=== PATIENT | female | born 1945 | race Caucasian/White ===

== ENCOUNTER → 2016-05-22 | Outpatient (CLI) | payer OTHER ==
[~2016-05-22] MED LIST: CHOL100010 PO; CHOL100027 PO; DIPH25CA65 PO; FEBU80TA PO; GABA1CAP PO; HYDR25TA4 PO; IBUP-1050 PO; LISI-461 PO; MULTTAB58 PO; OXYC1TAB3 PO; TRAM-10 PO; ULT/50 PO; WARF5TAB7 PO; ZNT/150 PO
[2016-05-22 12:49] LABS: HEMATOCRIT 38.4 % (37-47); MEAN CELL VOLUME 93.4 fL (80-100); MEAN CORPUSCULAR HEMOGLOBIN 30.9 pg (25-34); MEAN CORPUSCULAR HGB CONC 33.1 g/dl (32-36); MEAN PLATELET VOLUME 9.9 fL (7.4-10.4); PLATELET COUNT 248 K/uL (130-400); RED BLOOD COUNT 4.11 M/uL (4.2-5.4)
[2016-05-22 13:00] LABS: ALT/SGPT 32 U/L (12-78); AST/SGOT 34 U/L (15-37); BLOOD UREA NITROGEN 30 mg/dl (7-18); BUN/CREATININE RATIO 20.3 (10-20); CALCIUM 9.4 mg/dl (8.5-10.1); CARBON DIOXIDE 32 mmol/L (21-32); CHLORIDE 103 mmol/L (98-107); CHOLESTEROL 173 mg/dl (0-200); GLUCOSE 76 mg/dl (70-99); POTASSIUM 4.8 mmol/L (3.5-5.1); SODIUM 138 mmol/L (136-145)
[2016-05-22 13:03] LABS: ALB/GLOB RATIO 0.9 (0.9-2); ALKALINE PHOSPHATASE 88 U/L (45-117); HDL CHOLESTEROL 43 mg/dl; LDL CHOLESTEROL CALCULATED 85 mg/dl; TRIGLYCERIDES 223 mg/dl (0-150); VERY LOW DENSITY LIPOPROT CALC 45 mg/dl
[2016-05-22 13:14] LABS: ESTIMATED AVERAGE GLUCOSE 123 mg/dl; HA1C FLAG Normal (Normal)
== END | disposition home or self-care (01) ==
LOC: C.LABBFT 10:37
PROVIDERS: ATTEND Internal Medicine
DX: I12.9 Hypertensive chronic kidney disease with stage 1 through stage 4 chronic kidney disease, or unspecified chronic kidney disease (principal); N18.3 Chronic kidney disease, stage 3 (moderate); R73.01 Impaired fasting glucose

== ENCOUNTER 2016-09-16 16:06 | Emergency (ER) | payer OTHER ==
[~2016-09-16] VITALS: Ht 154.9 cm; Wt 96.4 kg
[~2016-09-16 16:06] MED LIST changes: -CHOL100027 PO; -IBUP-1050 PO; -MULTTAB58 PO; -OXYC1TAB3 PO; -TRAM-10 PO
[2016-09-16 16:17] VITALS: Ht 154.9 cm; Wt 96.4 kg
[2016-09-16] MEDS ORDERED: ONDANSETRON INJ 2 MG/ML 2 ML VIAL IV STA (16:27)
[2016-09-16] MEDS ORDERED: HYDROmorphone INJ 0.5 MG/0.5 ML SYR IV PRN (16:30)
[2016-09-16] MEDS ORDERED: OPTIRAY 320 IV PRN (16:45)
[2016-09-16] MEDS ORDERED: TRAM-10 PO (17:00)
[2016-09-16] MEDS ORDERED: CHOL100027 PO (17:00)
[2016-09-16 17:01] VITALS: O2SAT 96
[2016-09-16 17:08] LABS: ISTAT CREATININE 1.5 mg/dl (0.6-1.3); ISTAT HEMOGLOBIN 13.9 g/dl (12.0-16.0); ISTAT IONIZED CALCIUM 1.09 mmol/l (1.12-1.32)
[2016-09-16 17:09] LABS: BASO % 0.3 %; BASO ABS # 0.02 K/uL (0-0.2); COMPLETE YES; EOS % 1.3 %; HEMATOCRIT 40.6 % (37-47); IG% 0.1 %; LYMPH % 24.2 %; LYMPH ABS # 1.66 K/uL (1.2-3.4); MEAN CELL VOLUME 96.2 fL (80-100); MEAN CORPUSCULAR HGB CONC 33.3 g/dl (32-36); MEAN PLATELET VOLUME 9.9 fL (7.4-10.4); MONO % 6.7 %; NEUT % 67.4 %; PLATELET COUNT 231 K/uL (130-400); RED BLOOD COUNT 4.22 M/uL (4.2-5.4); WHITE BLOOD COUNT 6.86 K/uL (4.8-10.8)
[2016-09-16 17:17] LABS: INR 1.9 (0.9-1.1); PARTIAL THROMBOPLASTIN RATIO 1.3; PROTHROMBIN TIME (PATIENT) 20.4 SECONDS (9.0-12.0)
[2016-09-16 17:30] LABS: ALKALINE PHOSPHATASE 90 U/L (45-117); ALT/SGPT 26 U/L (12-78); AST/SGOT 25 U/L (15-37); CKMB/CK RATIO 1.6 (0-3.0)
--- NOTE | 2016-09-16 17:41 | DIAGNOSTIC IMAGING REPORT ---
ADDENDUM Healing right posterior fourth rib fracture. Electronically signed by: Lito Vieira M.D. 09/16/2016 5:46 PM Dictated Date/Time: 09/16/2016 5:46 PM ORIGINAL REPORT CHEST CTA for PULMONARY ARTERIES CT DOSE: 567.34 mGy.cm HISTORY: Short of breath. Sharp chest pain. TECHNIQUE: Multiaxial CT images of the chest were performed following the intravenous administration of contrast to evaluate the pulmonary arteries. Maximal intensity projection images were also obtained. A dose lowering technique was utilized adhering to the principles of ALARA. COMPARISON STUDY: Chest 01/07/2013. Abdomen and pelvis CT 01/07/2013. FINDINGS: Cholecystectomy. The visualized liver, spleen, and adrenal glands are unremarkable. Small hiatus hernia. No pleural or pericardial effusions. No mediastinal or hilar lymphadenopathy. The heart is normal in size. No acute fractures within the visualized osseous structures. No pneumothorax. A 4 mm nodule within the lingula on image 115. A stable 7 mm nodule within the left lower lobe on image 68. Therefore, this is likely benign. Patchy bibasilar densities are nonspecific but favor mild dependent change. Normal caliber thoracic aorta with no evidence for dissection. No filling defects within the pulmonary arteries to suggest pulmonary embolus. IMPRESSION: No evidence for pulmonary embolus. Additional findings as described above. Electronically signed by: Lito Vieira M.D. 09/16/2016 5:40 PM Dictated Date/Time: 09/16/2016 5:31 PM
--- NOTE | 2016-09-16 17:47 | DIAGNOSTIC IMAGING REPORT ---
CHEST ONE VIEW PORTABLE HISTORY: Atypical CHEST PAIN COMPARISON: Chest 07/03/2013. FINDINGS: Linear densities the left lung base favor subsegmental atelectasis. The lungs are otherwise clear. No pleural effusions. No pneumothorax. The heart is normal in size. Healing right posterior fourth rib fracture. IMPRESSION: Left basilar subsegmental atelectasis. Healing right posterior fourth rib fracture. Otherwise, no acute process within the chest. Electronically signed by: Lito Vieira M.D. 09/16/2016 5:45 PM Dictated Date/Time: 09/16/2016 5:43 PM
[2016-09-16] MEDS ORDERED: OXYC1TAB3 PO (18:07)
[2016-09-16] MEDS ORDERED: MULTTAB58 PO (18:09)
[2016-09-16] MEDS ORDERED: OXYCODONE IR HOME PACK PO ONE (18:15)
[2016-09-16 18:22] VITALS: BP 121/59; PULSE 76; TEMP 36.6; O2SAT 96
--- NOTE | 2016-09-17 00:02 | EMERGENCY ROOM VISIT NOTE ---
History Report prepared by Giancarlo: Mak Earl Under the Supervision of: Dr. Idris Bronson M.D. First contact with patient: 16:24 Chief Complaint: STROKE SYMPTOMS Stated Complaint: HAS FACTOR 5,RT LEG PAIN,POSSIBLE BLOOD CLOT History of Present Illness The patient is a 70 year old female with a history of a DVT in her leg who presents to the Emergency Room with complaints of persistent right frontal pleuritic pain that started 2 days ago. She says that she is concerned that she is having a blood clot. The patient says that her symptoms started as feeling short of breath, with sharp and burning pains when taking a deep breath on her right side. She states that her pain has specifically been around her right shoulder, right side of her chest, and the upper right side of her back. The patient rates her pain as a 10 out of 10 in severity. She notes that she takes Warfarin, and last had her numbers checked a month ago, which were fine. She adds that she has not missed any doses of her Coumadin. The patient adds that she has factor 5. She takes Tramadol for neuropathy, and has a history of a cholecystectomy. She denies any left-sided pain or any new low back pain. She says that she has not had any recent long car or plane trips. The patient says she was sitting a long time in adventism this morning, which is causing her leg swelling. She notes that she has not had any recent injuries or trauma. Pt also denies LOC, headache, fevers, chills, diaphoresis, visual changes, neck pain, nausea, vomiting, abdominal pain, melena, hematochezia, urinary symptoms, numbness, weakness, lymphadenopathy, rash, or other complaints. Source of History: patient Onset: 2 days ago Position: other (right frontal pleuritic ) Quality: burning, sharp Timing: other (persistent) Modifying Factors (Worsening): breathing Associated Symptoms: + chest pain (right side, denies left side), + SOB, + back pain (right upper) Note: Associated symptoms: Right shoulder pain. Review of Systems See HPI for pertinent positives and negatives. A total of ten systems were reviewed and were otherwise negative. Past Medical & Surgical Medical Problems: (1) DVT (deep venous thrombosis) (2) Epiploic appendagitis (3) Factor V Leiden (4) Gout (5) Neuropathy Surgical Problems: (1) Hx of cholecystectomy Family History Cancer Diabetes mellitus Heart disease Hypertension Social History Smoking Status: Never Smoker Alcohol Use: none Drug Use: none Marital Status: Occupation Status: employed Current/Historical Medications Scheduled Cholecalciferol (Vitamin D 1000 Unit), 1,000 INTER.UNIT PO DAILY Febuxostat (Uloric), 1 TAB PO DAILY Gabapentin (Neurontin), 300 MG PO TID Hydrochlorothiazide (Hctz), 1 TAB PO DAILY Lisinopril (Zestril), 10 MG PO DAILY Multiple Vitamin (Multivitamin), 1 TAB PO DAILY Warfarin Sod (Jantoven), 5 MG PO QPM Scheduled PRN Oxycodone Ir (Roxicodone Ir), 1-2 TAB PO Q4H PRN for Severe Pain Tramadol (Ultram), 50 MG PO QID PRN for Pain Allergies Coded Allergies: Celecoxib (Verified Allergy, Unknown, PT UNSURE, 12/28/14) Physical Exam Vital Signs Date Time Temp Pulse Resp B/P (MAP) Pulse Ox O2 Delivery O2 Flow Rate FiO2 09/16/16 18:22 36.6 76 20 121/59 96 09/16/16 18:11 79 23 95 09/16/16 18:00 154/73 09/16/16 17:41 78 20 96 09/16/16 17:36 76 20 96 09/16/16 17:31 121/59 09/16/16 17:06 73 32 96 09/16/16 17:01 96 Room Air 09/16/16 17:01 76 20 147/76 99 Room Air 09/16/16 17:01 96 Room Air 09/16/16 16:56 78 24 96 09/16/16 16:51 72 19 98 09/16/16 16:47 78 09/16/16 16:46 82 23 98 09/16/16 16:43 162/83 09/16/16 16:37 96 Room Air 09/16/16 16:17 36.6 85 20 145/82 93 Room Air Physical Exam GENERAL: Awake, alert, uncomfortable-appearing, in no distress HENT: Normocephalic, atraumatic. Oropharynx unremarkable. EYES: Normal conjunctiva. Sclera non-icteric. NECK: Supple. No nuchal rigidity. FROM. No JVD. RESPIRATORY: Clear to auscultation. CARDIAC: Regular rate, normal rhythm. Extremities warm and well perfused. Pulses equal. ABDOMEN: Soft, non-distended. No tenderness to palpation. No rebound or guarding. No masses. RECTAL: Deferred. MUSCULOSKELETAL: Right chest and right upper back tenderness. The back is symmetrical on inspection without obvious abnormality. There is no CVA tenderness to palpation. No joint edema. LOWER EXTREMITIES: Chronic venous discoloration of lower legs. 2+ lower extremity edema. Calves are equal size bilaterally and non-tender. NEURO: Normal sensorium. No sensory or motor deficits noted. SKIN: No rash or jaundice noted. Medical Decision & Procedures ER Provider Diagnostic Interpretation: Radiology results as stated below per my review and radiologist interpretation: CHEST CTA for PULMONARY ARTERIES CT DOSE: 567.34 mGy.cm HISTORY: Short of breath. Sharp chest pain. TECHNIQUE: Multiaxial CT images of the chest were performed following the intravenous administration of contrast to evaluate the pulmonary arteries. Maximal intensity projection images were also obtained. A dose lowering technique was utilized adhering to the principles of ALARA. COMPARISON STUDY: Chest 01/07/2013. Abdomen and pelvis CT 01/07/2013. FINDINGS: Cholecystectomy. The visualized liver, spleen, and adrenal glands are unremarkable. Small hiatus hernia. No pleural or pericardial effusions. No mediastinal or hilar lymphadenopathy. The heart is normal in size. No acute fractures within the visualized osseous structures. No pneumothorax. A 4 mm nodule within the lingula on image 115. A stable 7 mm nodule within the left lower lobe on image 68. Therefore, this is likely benign. Patchy bibasilar densities are nonspecific but favor mild dependent change. Normal caliber thoracic aorta with no evidence for dissection. No filling defects within the pulmonary arteries to suggest pulmonary embolus. IMPRESSION: No evidence for pulmonary embolus. Additional findings as described above. Electronically signed by: Lito Vieira M.D. 09/16/2016 5:40 PM Dictated Date/Time: 09/16/2016 5:31 PM ADDENDUM Healing right posterior fourth rib fracture. Electronically signed by: Lito Vieira M.D. 09/16/2016 5:46 PM Dictated Date/Time: 09/16/2016 5:46 PM ORIGINAL REPORT CHEST CTA for PULMONARY ARTERIES CT DOSE: 567.34 mGy.cm HISTORY: Short of breath. Sharp chest pain. TECHNIQUE: Multiaxial CT images of the chest were performed following the intravenous administration of contrast to evaluate the pulmonary arteries. Maximal intensity projection images were also obtained. A dose lowering technique was utilized adhering to the principles of ALARA. COMPARISON STUDY: Chest 01/07/2013. Abdomen and pelvis CT 01/07/2013. FINDINGS: Cholecystectomy. The visualized liver, spleen, and adrenal glands are unremarkable. Small hiatus hernia. No pleural or pericardial effusions. No mediastinal or hilar lymphadenopathy. The heart is normal in size. No acute fractures within the visualized osseous structures. No pneumothorax. A 4 mm nodule within the lingula on image 115. A stable 7 mm nodule within the left lower lobe on image 68. Therefore, this is likely benign. Patchy bibasilar densities are nonspecific but favor mild dependent change. Normal caliber thoracic aorta with no evidence for dissection. No filling defects within the pulmonary arteries to suggest pulmonary embolus. IMPRESSION: No evidence for pulmonary embolus. Additional findings as described above. Electronically signed by: Lito Vieira M.D. 09/16/2016 5:40 PM Dictated Date/Time: 09/16/2016 5:31 PM CHEST ONE VIEW PORTABLE HISTORY: Atypical CHEST PAIN COMPARISON: Chest 07/03/2013. FINDINGS: Linear densities the left lung base favor subsegmental atelectasis. The lungs are otherwise clear. No pleural effusions. No pneumothorax. The heart is normal in size. Healing right posterior fourth rib fracture. IMPRESSION: Left basilar subsegmental atelectasis. Healing right posterior fourth rib fracture. Otherwise, no acute process within the chest. Electronically signed by: Lito Vieira M.D. 09/16/2016 5:45 PM Dictated Date/Time: 09/16/2016 5:43 PM Laboratory Results 09/16/16 17:00 Red Blood Count 4.22, Mean Corpuscular Volume 96.2, Mean Corpuscular Hemoglobin 32.0, Mean Corpuscular Hemoglobin Concent 33.3, Mean Platelet Volume 9.9, Neutrophils (%) (Auto) 67.4, Lymphocytes (%) (Auto) 24.2, Monocytes (%) (Auto) 6.7, Eosinophils (%) (Auto) 1.3, Basophils (%) (Auto) 0.3, Neutrophils # (Auto) 4.62, Lymphocytes # (Auto) 1.66, Monocytes # (Auto) 0.46, Eosinophils # (Auto) 0.09, Basophils # (Auto) 0.02 Test 09/16/16 16:54 09/16/16 17:00 Bedside Hemoglobin 13.9 g/dl (12.0-16.0) Bedside Hematocrit 41 % (37-47) Bedside Sodium 138 mEq/L (135-144) Bedside Potassium 4.6 mEq/L (3.3-5.0) Bedside Chloride 102 mEq/L (101-112) Bedside Total CO2 26 mEq/l (24-31) Anion Gap 15.0 mmol/L (16-25) Bedside Blood Urea Nitrogen 32 mg/dl (7-18) Bedside Creatinine 1.5 mg/dl (0.6-1.3) Bedside Glucose (other) 114 mg/dl (70-99) Bedside Ionized Calcium (Jamie) 1.09 mmol/l (1.12-1.32) White Blood Count 6.86 K/uL (4.8-10.8) Red Blood Count 4.22 M/uL (4.2-5.4) Hemoglobin 13.5 g/dL (12.0-16.0) Hematocrit 40.6 % (37-47) Mean Corpuscular Volume 96.2 fL (80-100) Mean Corpuscular Hemoglobin 32.0 pg (25-34) Mean Corpuscular Hemoglobin Concent 33.3 g/dl (32-36) Platelet Count 231 K/uL (130-400) Mean Platelet Volume 9.9 fL (7.4-10.4) Neutrophils (%) (Auto) 67.4 % Lymphocytes (%) (Auto) 24.2 % Monocytes (%) (Auto) 6.7 % Eosinophils (%) (Auto) 1.3 % Basophils (%) (Auto) 0.3 % Neutrophils # (Auto) 4.62 K/uL (1.4-6.5) Lymphocytes # (Auto) 1.66 K/uL (1.2-3.4) Monocytes # (Auto) 0.46 K/uL (0.11-0.59) Eosinophils # (Auto) 0.09 K/uL (0-0.5) Basophils # (Auto) 0.02 K/uL (0-0.2) RDW Standard Deviation 46.3 fL (36.4-46.3) RDW Coefficient of Variation 13.2 % (11.5-14.5) Immature Granulocyte % (Auto) 0.1 % Immature Granulocyte # (Auto) 0.01 K/uL (0.00-0.02) Prothrombin Time 20.4 SECONDS (9.0-12.0) Prothromb Time International Ratio 1.9 (0.9-1.1) Activated Partial Thromboplast Time 34.8 SECONDS (21.0-31.0) Partial Thromboplastin Ratio 1.3 Total Bilirubin 0.3 mg/dl (0.2-1) Direct Bilirubin 0.1 mg/dl (0-0.2) Aspartate Amino Transf (AST/SGOT) 25 U/L (15-37) Alanine Aminotransferase (ALT/SGPT) 26 U/L (12-78) Alkaline Phosphatase 90 U/L (45-117) Total Creatine Kinase 202 U/L (26-192) Creatine Kinase MB 3.3 ng/ml (0.5-3.6) Creatine Kinase MB Ratio 1.6 (0-3.0) Troponin I < 0.015 ng/ml (0-0.045) Total Protein 8.2 gm/dl (6.4-8.2) Albumin 3.8 gm/dl (3.4-5.0) Lipase 226 U/L (73-393) Laboratory results reviewed by me Medications Administered Medications (Trade) Dose Ordered Sig/Dante Route Start Time Stop Time Status Last Admin Dose Admin Ondansetron HCl (Zofran Inj) 4 mg NOW STAT IV 09/16/16 16:27 09/16/16 16:30 DC 09/16/16 17:14 4 MG Hydromorphone HCl (Dilaudid Inj) 0.5 mg Q15M PRN IV 09/16/16 16:30 09/16/16 18:44 DC 09/16/16 17:14 0.5 MG Oxycodone HCl (Roxicodone Immediate Rel 5MG Home Pack) 1 homepack UD ONCE PO 09/16/16 18:15 09/16/16 18:16 DC 09/16/16 18:33 1 HOMEPACK ECG Indication: SOB/dyspnea Rate (beats per minute): 75 Rhythm: normal sinus Findings: no acute ischemic change, no ectopy ED Course 162: The patient was evaluated in room B11B. A complete history and physical exam was performed. 162: Ordered Zofran Inj 4 mg IV. 163: Ordered Dilaudid Inj 0.5 mg IV PRN. 1814: Ordered Roxicodone Immediate Rel 5MG Home Pack 1 homepack PO. 174: I reevaluated the patient and she is resting. 175: I reevaluated the patient and she says that her 14 year old 6 foot 1 grandson bear-hugged her 2 days ago before the pain started. The patient verbally expressed understanding and agreement of the treatment plan. The patient will be discharged. Medical Decision Triage Nursing notes reviewed. The patient's presentation and history were concerning for SOB, chest and back pain. Etiologies such as pulmonary embolism, cardiac ischemia, aortic dissection, pneumonia, pneumothorax, musculoskeletal, infections, gastrointestinal, zoster as well as others were entertained. The patient was given dilaudid and zofran for symptom control. Lab work, imaging and ECG ordered. The patient had an unremarkable ECG. CBC was unremarkable. Her INR is minimally subtherapeutic at 1.9. Cardiac markers negative. Her chemistry panel is unremarkable. Chest x-ray and CT scan as above. The patient has a right posterior fourth rib fracture. She was doing much better with the Dilaudid. On further review the patient remembered that she had received a very strong bear hug From her grandson who is 6'1" and noted discomfort at the time of the squeeze. I believe that this is the cause of her pain and she has a near therapeutic INR and this fracture is right at the spot of her discomfort. She was given oxycodone for use at home. Incentive spirometry was also instructed. The patient will follow-up closely this week as an outpatient. If she worsens in any way she will be back here for reevaluation. By the evaluation outlined above other emergent etiologies such as those listed in the differential, as well as others, were deemed relatively unlikely. The patient was educated about the findings as listed above. All questions were answered and the patient was pleased with the treatment. Return instructions were outlined and the patient was discharged in stable condition. The patient was referred to her PCP for follow-up for a recheck of the current condition. [place] Drug Monitoring Program Search Results: patient reviewed within database, no issues identified Medication Reconcilliation Current Medication List: was personally reviewed by me Blood Pressure Screening Patient's blood pressure: Elevated blood pressure Blood pressure disposition: Elevated BP felt to be situational Impression Primary Impression: Right rib fracture Scribe Attestation The scribe's documentation has been prepared under my direction and personally reviewed by me in its entirety. I confirm that the note above accurately reflects all work, treatment, procedures, and medical decision making performed by me. Departure Information Dispostion Home / Self-Care Prescriptions Oxycodone Ir (Roxicodone Ir) 5 Mg Tab 1-2 TAB PO Q4H Y for Severe Pain, #24 TAB Prov: Idris Bronson MD 09/16/16 Referrals Eliel Sykes M.D. (PCP) Patient Instructions ED Fx Rib, My [facility] Additional Instructions Rib fracture instructions: DO NOT drive, drink alcohol, operate machinery, or perform dangerous activities today. You were given medications in the ER that can affect your ability to safely function or operate a vehicle. Oxycodone (OxyIR) 5mg: Take 1-2 pills every four hours for breakthrough pain. Avoid alcohol, operating machinery or dangerous equipment, working on ladders or roofs, DRIVING, or situations where being under the influence may be dangerous. It is recommended to use an [id number] stool softener such as Colace, 100mg twice daily while taking this medication to avoid constipation. Continue warfarin. Acetaminophen(Tylenol) may be used for fever or pain. Use 1000mg every six hours as needed. Avoid using more than 4000mg in a 24 hour period. Rest and drink plenty of fluids as tolerated. Continue current medications. Avoid strenuous activities and anything that worsens your pain. Resume normal activities once your symptoms resolve. Use the incentive spirometer to exercise your lungs every 2-3 hours as directed this week to minimize the chance for pneumonia. Return to the ER immediately for worsening or persistent chest pain, abdominal pain, vomiting, fevers, chest pains, difficulty breathing, worsening of your condition, or as needed. Follow up with your primary physician in 2-3 days for a recheck of your current condition.
[2016-09-24] MEDS ORDERED: IBUP-1050 PO (09:04)
[2016-11-08] MEDS ORDERED: WARF5TAB7 PO (08:39)
== END 2016-09-16 18:24 | disposition home or self-care (01) ==
LOC: C.EDB 16:06
DX: J98.11 Atelectasis (principal); R07.9 Chest pain, unspecified; D68.51 Activated protein C resistance; M79.604 Pain in right leg; Z86.718 Personal history of other venous thrombosis and embolism; Z79.01 Long term (current) use of anticoagulants; Z79.899 Other long term (current) drug therapy; M84.48XD Pathological fracture, other site, subsequent encounter for fracture with routine healing

== ENCOUNTER → 2016-12-24 | Outpatient (CLI) | payer OTHER ==
[~2016-12-24] MED LIST changes: -CHOL100010 PO; +CHOL100027 PO; -DIPH25CA65 PO; +MULTTAB58 PO; +TRAM-10 PO; -ULT/50 PO; -ZNT/150 PO
== END | disposition home or self-care (01) ==
LOC: C.MAMM 14:29
PROVIDERS: ATTEND Internal Medicine
DX: M85.851 Other specified disorders of bone density and structure, right thigh (principal); M85.852 Other specified disorders of bone density and structure, left thigh; Z87.828 Personal history of other (healed) physical injury and trauma

== ENCOUNTER 2017-04-23 10:58 | Emergency (ER) | payer OTHER ==
[~2017-04-23] VITALS: Ht 157.5 cm; Wt 96.0 kg
[~2017-04-23 10:58] MED LIST changes: +GABA100C13 PO; -GABA1CAP PO
[2017-04-23 11:03] VITALS: TEMP 36.6; Ht 157.5 cm; Wt 96.0 kg
--- NOTE | 2017-04-23 11:29 | EMERGENCY ROOM VISIT NOTE ---
ED Visit Note First contact with patient: 11:09 CHIEF COMPLAINT: Low back pain HISTORY OF PRESENT ILLNESS: This is a 71-year-old female patient presents to the emergency department by private vehicle with her complaining of pain in the low back which began 2 days ago after an injury. The patient states that she fell backwards up against a windowsill striking her low back on the windowsill and has been having right lower back pain since that time. She describes the pain as burning and shooting, worse with bending over and twisting motions, better with ice and ibuprofen, 9/10. She has history of peripheral neuropathy of the bilateral lower extremities, but denies any new or worsening numbness, tingling, weakness of the lower extremities, denies any bowel or bladder dysfunction, denies any saddle paresthesias. She denies any other associated injuries. The pain has been gradually worsening. She denies any nausea or vomiting or abdominal pain. No chest pain or shortness of breath. The patient has not had prior back injuries. No dysuria or increased urinary frequency. She does take Coumadin for history of DVT, rhythm reports her last INR was 2.1. REVIEW OF SYSTEMS: A complete 10 point review of systems was reviewed with the patient with pertinent positives and negatives as per history of present illness. All else were negative. ALLERGIES: Reviewed in chart MEDICATIONS: Reviewed in chart PMH: Reviewed in chart SOCIAL HISTORY: Lives at home with her . Denies tobacco use, alcohol or recreational drug use PHYSICAL EXAM: VITALS: Vitals are noted on the nurse's note and reviewed by myself. Vital signs stable. GENERAL: Pleasant and cooperative, in no acute distress, non-diaphoretic, well- developed well-nourished. SKIN: The skin was without rashes, erythema, edema, or bruising. Capillary refill less than 2 seconds. NECK: Supple without nuchal rigidity. No cervical spine tenderness. No paraspinous muscle tenderness. HEART: Regular rate and rhythm without murmurs gallops or rubs. LUNGS: Clear to auscultation bilaterally without wheezes, rales or rhonchi. ABDOMEN: Positive bowel sounds x 4. Normal tympanic percussion. Soft, nontender, without masses or organomegaly. Crook sign negative. MUSCULOSKELETAL: No muscle atrophy, erythema, or edema noted of the back. There is moderate tenderness over the lumbar spinous processes, most prominent at L1-L2. There is moderate tenderness over the paraspinous muscles on the right. There is no tenderness over the thoracic spine no paraspinous muscles. There are no obvious muscle spasms present. The patient is slow to move around with maximum tenderness with bending at the waist and twisting to the right. Negative straight leg raise test bilaterally. NEURO: Patient was alert and oriented to person place and time. Normal sensation to light and sharp touch. Deep tendon reflexes 2+ in the lower extremities. Dorsalis pedis pulse 2+ bilaterally. Strength 5/5 and equal in the bilateral lower extremities. IMAGING: LUMBAR SPINE WITHOUT CT DOSE: HISTORY: Trauma. Pain. back injury, eval trauma--recon images pls TECHNIQUE: Multiaxial CT images of the lumbar spine were performed and reformatted in the sagittal and coronal plane without the use of contrast. A dose lowering technique was utilized adhering to the principles of ALARA. COMPARISON: None. FINDINGS: Nondisplaced cortical fracture right transverse process L1. Considerable degenerative change of the posterior elements and intervertebral this throughout the entire lumbar region. Moderate multifactorial narrowing of the spinal canal at L2-L3 and L3-L4. No evidence for compression deformity. Probable multifactorial spinal stenosis L4-L5 IMPRESSION: 1. Nondisplaced cortical fracture right transverse process L1. 2. Considerable degenerative change throughout the entire lumbar region. 3. Findings of multifactorial narrowing of the spinal canal from L2 through L5 4. No evidence for compression deformity. ----- CT SCAN OF THE ABDOMEN AND PELVIS WITHOUT IV CONTRAST CLINICAL HISTORY: Fall. Low back pain. COMPARISON STUDY: Abdominal CT dated 01/07/2013. TECHNIQUE: CT scan of the abdomen and pelvis is performed from the lung bases to the proximal femora. Images are reviewed in the axial, sagittal, and coronal planes. IV contrast was not administered for this examination as per the referring clinician. Note that the examination was performed in suboptimal fashion without oral and IV contrast. A dose lowering technique was utilized adhering to the principles of ALARA. CT DOSE: 1309.81 mGy.cm FINDINGS: Lung bases: The heart is normal in size and without pericardial effusion. A 7 mm pulmonary nodule is again seen at the left lung base. This is unchanged from 2012 and of doubtful significance. The lung bases are otherwise clear noting dependent atelectasis. There is a small hiatal hernia. Liver: The unenhanced liver is normal in size, contour, and attenuation. There is no intrahepatic biliary ductal dilatation. Gallbladder: Surgically absent noting clips in the gallbladder fossa. Spleen: Normal in size and attenuation. Pancreas: Atrophic and grossly unremarkable. Adrenal glands: Unremarkable. Kidneys: The unenhanced kidneys are atrophic and without hydronephrosis. There are no renal calculi identified. There is no evidence of contour deforming renal mass lesion. Abdominal vasculature: The abdominal aorta is normal in course and caliber noting moderate atherosclerotic calcification. Bowel: There is mild to moderate colonic diverticulosis without CT evidence of acute diverticulitis. No bowel obstruction is seen. The appendix is well-visualized and normal. Peritoneum/retroperitoneum: There is no intraperitoneal free air or abdominal ascites. There is a large fat-containing umbilical hernia. No retroperitoneal hematoma is identified. Lymphadenopathy: None. Pelvic viscera: The bladder, uterus, and adnexa are normal as visualized. Skeletal structures: The skeletal structures are osteopenic. No lytic or blastic lesions are seen. There is a nondistracted right transverse process of L1 seen on image #124. No additional fracture is seen. Moderate lumbosacral spondylosis is observed. A large posterior disc osteophyte complex is seen at L3-L4. IMPRESSION: 1. There is no evidence of solid organ injury in the abdomen or pelvis on this unenhanced examination. 2. There is a nondistracted right transverse process fracture of L1. 3. No additional fracture is seen. 4. Mild to moderate colonic diverticulosis without CT evidence of acute diverticulitis. 5. Additional findings as above. EMERGENCY DEPARTMENT COURSE: I examined the patient. Differential diagnosis includes lumbar strain/sprain, contusion, hematoma, vertebral fracture, subluxation, retroperitoneal hematoma or trauma, among others. Since the patient is on Coumadin, I am concerned for possible bleeding secondary to trauma. An IV was placed, labs were sent, and the patient was given IV fentanyl for pain. A CT of the abdomen and pelvis with recon images of the lumbar spine was performed, noting a nondisplaced transverse process of the L1 vertebra, no other acute abnormalities specifically no hemorrhage. INR is therapeutic. The patient appears much more comfortable after receiving fentanyl , states her pain is much improved. She was updated regarding results and plan for discharge, and was encouraged to follow closely with her primary care provider for ongoing management and possible physical therapy as needed. She was also given strict return precautions should her symptoms worsen in any way, she verbalized understanding. She was given a dose of Tylenol prior to discharge for continued pain management was encouraged to continue use as needed. Patient was discharged home with her in stable condition and ambulatory. Problem List Medical Problems: (1) DVT (deep venous thrombosis) Status: Resolved (2) Epiploic appendagitis Status: Resolved (3) Factor V Leiden Status: Chronic (4) Gout Status: Chronic (5) Neuropathy Status: Chronic Surgical Problems: (1) Hx of cholecystectomy Status: Resolved Current/Historical Medications Scheduled Cholecalciferol (Vitamin D 1000 Unit), 1,000 INTER.UNIT PO DAILY Febuxostat (Uloric), 80 MG PO DAILY Gabapentin (Neurontin), 300 MG PO TID Hydrochlorothiazide (Hctz), 25 MG PO DAILY Lisinopril (Zestril), 10 MG PO DAILY Multiple Vitamin (Multivitamin), 1 TAB PO DAILY Tramadol (Ultram), 100 MG PO QID Warfarin Sod (Jantoven), 5 MG PO 6XWK Warfarin Sod (Jantoven), 7.5 MG PO WK Allergies Coded Allergies: Celecoxib (Verified Allergy, Unknown, PT UNSURE, 04/23/17) Vital Signs Date Time Temp Pulse Resp B/P (MAP) Pulse Ox O2 Delivery O2 Flow Rate FiO2 04/23/17 14:20 74 16 120/71 96 Room Air 04/23/17 13:17 74 16 127/71 94 04/23/17 11:03 36.6 83 18 149/72 95 Room Air Laboratory Results 04/23/17 11:45 04/23/17 11:45 Test 04/23/17 11:45 Red Blood Count 4.38 M/uL (4.2-5.4) Mean Corpuscular Volume 96.1 fL (80-100) Mean Corpuscular Hemoglobin 30.8 pg (25-34) Mean Corpuscular Hemoglobin Concent 32.1 g/dl (32-36) RDW Standard Deviation 46.3 fL (36.4-46.3) RDW Coefficient of Variation 13.2 % (11.5-14.5) Mean Platelet Volume 10.1 fL (7.4-10.4) Prothrombin Time 24.2 SECONDS (9.0-12.0) Prothromb Time International Ratio 2.3 (0.9-1.1) Anion Gap 8.0 mmol/L (3-11) Est Creatinine Clear Calc Drug Dose 33.5 ml/min Estimated GFR () 35.8 Estimated GFR (Non- 30.9 BUN/Creatinine Ratio 18.0 (10-20) Calcium Level 9.5 mg/dl (8.5-10.1) Medications Administered Medications (Trade) Dose Ordered Sig/Dante Route Start Time Stop Time Status Last Admin Dose Admin Fentanyl Citrate (Fentanyl Inj) 50 mcg NOW STAT IV 04/23/17 11:30 04/23/17 11:35 DC 04/23/17 11:53 50 MCG Fentanyl Citrate (Fentanyl Inj) 50 mcg NOW STAT IV 04/23/17 12:49 04/23/17 12:50 DC 04/23/17 12:58 50 MCG Acetaminophen (Tylenol Tab) 1,000 mg NOW STAT PO 04/23/17 13:56 04/23/17 13:57 DC 04/23/17 14:18 1,000 MG Departure Information Impression Primary Impression: Lower back injury Additional Impression: Closed fracture of transverse process of lumbar vertebra Dispostion Home / Self-Care Condition GOOD Referrals Eliel Sykes M.D. (PCP) Patient Instructions ED Back Care Tips, ED Fx Transverse Process, ED Low Back Pain Injury, ED Prevention Fall, [facility] Additional Instructions Take it easy for the next few days, no strenuous activity, heavy lifting, or bending/twisting motions, to allow your back to rest. Alternate heat and ice for comfort. After heat, you may do gentle stretching and massage to the low back. Take your own tramadol as prescribed as needed for your back pain. You may also take extra strength Tylenol (500 mg tablets) 1-2 tablets every 8 hours. Do not take more than 6 tablets (3000 mg) in 24 hours. Follow up with your PCP in the next few days for further management. You may benefit from physical therapy. Please return to the ER if any problems with bowel or bladder function, numbness in your groin, high fevers, severe abdominal pain or worsening back pain, or if loss of feeling/movement of legs. Problem Qualifiers Primary Impression: Lower back injury Encounter type: initial encounter Qualified Codes: S39.92XA - Unspecified injury of lower back, initial encounter Additional Impression: Closed fracture of transverse process of lumbar vertebra Encounter type: initial encounter Qualified Codes: S32.009A - Unspecified fracture of unspecified lumbar vertebra, initial encounter for closed fracture
[2017-04-23] MEDS ORDERED: FENTANYL CITRATE INJ 50 MCG/1 ML 2 ML VIAL IV STA ×2 (11:30→12:49)
[2017-04-23] MEDS ORDERED: OPTIRAY 320 IV PRN (11:45)
[2017-04-23 12:01] LABS: HEMATOCRIT 42.1 % (37-47); HEMOGLOBIN 13.5 g/dL (12.0-16.0); MEAN CELL VOLUME 96.1 fL (80-100); MEAN CORPUSCULAR HEMOGLOBIN 30.8 pg (25-34); MEAN CORPUSCULAR HGB CONC 32.1 g/dl (32-36); MEAN PLATELET VOLUME 10.1 fL (7.4-10.4); PLATELET COUNT 250 K/uL (130-400); RED CELL DISTRIBUTION WIDTH CV 13.2 % (11.5-14.5); RED CELL DISTRIBUTION WIDTH SD 46.3 fL (36.4-46.3); WHITE BLOOD COUNT 6.33 K/uL (4.8-10.8)
--- NOTE | 2017-04-23 12:02 | EMERGENCY ROOM VISIT NOTE ---
ED Visit Note First contact with patient: 11:09 I have seen and examined this patient with Genesis Ruiz and generally agree with the treatment plan as discussed. Problem List Medical Problems: (1) DVT (deep venous thrombosis) Status: Resolved (2) Epiploic appendagitis Status: Resolved (3) Factor V Leiden Status: Chronic (4) Gout Status: Chronic (5) Neuropathy Status: Chronic Surgical Problems: (1) Hx of cholecystectomy Status: Resolved Current/Historical Medications Scheduled Cholecalciferol (Vitamin D 1000 Unit), 1,000 INTER.UNIT PO DAILY Febuxostat (Uloric), 1 TAB PO DAILY Gabapentin (Neurontin), 300 MG PO TID Hydrochlorothiazide (Hctz), 1 TAB PO DAILY Lisinopril (Zestril), 10 MG PO DAILY Multiple Vitamin (Multivitamin), 1 TAB PO DAILY Warfarin Sod (Jantoven), 5 MG PO 6XWK Warfarin Sod (Jantoven), 7.5 MG PO WK Scheduled PRN Tramadol (Ultram), 50 MG PO QID PRN for Pain Allergies Coded Allergies: Celecoxib (Verified Allergy, Unknown, PT UNSURE, 12/28/14) Vital Signs Date Time Temp Pulse Resp B/P (MAP) Pulse Ox O2 Delivery O2 Flow Rate FiO2 04/23/17 11:03 36.6 83 18 149/72 95 Room Air Laboratory Results 04/23/17 11:45 Test 04/23/17 11:45 Red Blood Count 4.38 M/uL (4.2-5.4) Mean Corpuscular Volume 96.1 fL (80-100) Mean Corpuscular Hemoglobin 30.8 pg (25-34) Mean Corpuscular Hemoglobin Concent 32.1 g/dl (32-36) RDW Standard Deviation 46.3 fL (36.4-46.3) RDW Coefficient of Variation 13.2 % (11.5-14.5) Mean Platelet Volume 10.1 fL (7.4-10.4) Medications Administered Medications (Trade) Dose Ordered Sig/Dante Route Start Time Stop Time Status Last Admin Dose Admin Fentanyl Citrate (Fentanyl Inj) 50 mcg NOW STAT IV 04/23/17 11:30 04/23/17 11:35 DC 04/23/17 11:53 50 MCG Departure Information Referrals Eliel Sykes M.D. (PCP) Patient Instructions [facility]
[2017-04-23 12:08] LABS: INR 2.3 (0.9-1.1)
[2017-04-23 12:17] LABS: CALCIUM 9.5 mg/dl (8.5-10.1); CREATININE 1.64 mg/dl (0.60-1.20); POTASSIUM 4.6 mmol/L (3.5-5.1)
--- NOTE | 2017-04-23 12:50 | DIAGNOSTIC IMAGING REPORT ---
LUMBAR SPINE WITHOUT CT DOSE: HISTORY: Trauma. Pain. back injury, eval trauma--recon images pls TECHNIQUE: Multiaxial CT images of the lumbar spine were performed and reformatted in the sagittal and coronal plane without the use of contrast. A dose lowering technique was utilized adhering to the principles of ALARA. COMPARISON: None. FINDINGS: Nondisplaced cortical fracture right transverse process L1. Considerable degenerative change of the posterior elements and intervertebral this throughout the entire lumbar region. Moderate multifactorial narrowing of the spinal canal at L2-L3 and L3-L4. No evidence for compression deformity. Probable multifactorial spinal stenosis L4-L5 IMPRESSION: 1. Nondisplaced cortical fracture right transverse process L1. 2. Considerable degenerative change throughout the entire lumbar region. 3. Findings of multifactorial narrowing of the spinal canal from L2 through L5 4. No evidence for compression deformity. The above report was generated using voice recognition software. It may contain grammatical, syntax or spelling errors. Electronically signed by: Adam White M.D. 04/23/2017 12:49 PM Dictated Date/Time: 04/23/2017 12:46 PM
--- NOTE | 2017-04-23 12:55 | DIAGNOSTIC IMAGING REPORT ---
CT SCAN OF THE ABDOMEN AND PELVIS WITHOUT IV CONTRAST CLINICAL HISTORY: Fall. Low back pain. COMPARISON STUDY: Abdominal CT dated 01/07/2013. TECHNIQUE: CT scan of the abdomen and pelvis is performed from the lung bases to the proximal femora. Images are reviewed in the axial, sagittal, and coronal planes. IV contrast was not administered for this examination as per the referring clinician. Note that the examination was performed in suboptimal fashion without oral and IV contrast. A dose lowering technique was utilized adhering to the principles of ALARA. CT DOSE: 1309.81 mGy.cm FINDINGS: Lung bases: The heart is normal in size and without pericardial effusion. A 7 mm pulmonary nodule is again seen at the left lung base. This is unchanged from 2013 and of doubtful significance. The lung bases are otherwise clear noting dependent atelectasis. There is a small hiatal hernia. Liver: The unenhanced liver is normal in size, contour, and attenuation. There is no intrahepatic biliary ductal dilatation. Gallbladder: Surgically absent noting clips in the gallbladder fossa. Spleen: Normal in size and attenuation. Pancreas: Atrophic and grossly unremarkable. Adrenal glands: Unremarkable. Kidneys: The unenhanced kidneys are atrophic and without hydronephrosis. There are no renal calculi identified. There is no evidence of contour deforming renal mass lesion. Abdominal vasculature: The abdominal aorta is normal in course and caliber noting moderate atherosclerotic calcification. Bowel: There is mild to moderate colonic diverticulosis without CT evidence of acute diverticulitis. No bowel obstruction is seen. The appendix is well-visualized and normal. Peritoneum/retroperitoneum: There is no intraperitoneal free air or abdominal ascites. There is a large fat-containing umbilical hernia. No retroperitoneal hematoma is identified. Lymphadenopathy: None. Pelvic viscera: The bladder, uterus, and adnexa are normal as visualized. Skeletal structures: The skeletal structures are osteopenic. No lytic or blastic lesions are seen. There is a nondistracted right transverse process of L1 seen on image #124. No additional fracture is seen. Moderate lumbosacral spondylosis is observed. A large posterior disc osteophyte complex is seen at L3-L4. IMPRESSION: 1. There is no evidence of solid organ injury in the abdomen or pelvis on this unenhanced examination. 2. There is a nondistracted right transverse process fracture of L1. 3. No additional fracture is seen. 4. Mild to moderate colonic diverticulosis without CT evidence of acute diverticulitis. 5. Additional findings as above. Electronically signed by: Francis Hodges M.D. 04/23/2017 12:54 PM Dictated Date/Time: 04/23/2017 12:43 PM
[2017-04-23] MEDS ORDERED: ACETAMINOPHEN 500 MG TAB PO STA (13:56)
[2017-04-23 14:20] VITALS: BP 120/71; PULSE 74; O2SAT 96
== END 2017-04-23 14:26 | disposition home or self-care (01) ==
LOC: C.EDB 11:00 → C.EDD 14:26
DX: S32.018A Other fracture of first lumbar vertebra, initial encounter for closed fracture (principal); W18.30XA Fall on same level, unspecified, initial encounter; G62.9 Polyneuropathy, unspecified; Z86.718 Personal history of other venous thrombosis and embolism; Z79.01 Long term (current) use of anticoagulants; D68.51 Activated protein C resistance; M10.9 Gout, unspecified; Z90.49 Acquired absence of other specified parts of digestive tract

== ENCOUNTER → 2017-06-28 | Outpatient (CLI) | payer OTHER ==
[2017-06-28 12:39] LABS: BASO % 0.4 %; BASO ABS # 0.02 K/uL (0-0.2); EOS % 2.5 %; EOS ABS # 0.13 K/uL (0-0.5); HEMATOCRIT 39.1 % (37-47); HEMOGLOBIN 12.9 g/dL (12.0-16.0); LYMPH % 35.9 %; LYMPH ABS # 1.89 K/uL (1.2-3.4); MEAN CELL VOLUME 94.7 fL (80-100); MEAN CORPUSCULAR HEMOGLOBIN 31.2 pg (25-34); MONO % 7.6 %; NEUT % 53.6 %; NEUT ABS # 2.83 K/uL (1.4-6.5); PLATELET COUNT 248 K/uL (130-400); RED CELL DISTRIBUTION WIDTH CV 13.2 % (11.5-14.5); RED CELL DISTRIBUTION WIDTH SD 45.3 fL (36.4-46.3); WHITE BLOOD COUNT 5.27 K/uL (4.8-10.8)
[2017-06-28 12:50] LABS: HEMOGLOBIN A1C 5.8 % (4.5-5.6)
[2017-06-28 13:03] LABS: ALBUMIN 3.5 gm/dl (3.4-5.0); ALKALINE PHOSPHATASE 104 U/L (45-117); ALT/SGPT 22 U/L (12-78); AST/SGOT 20 U/L (15-37); BLOOD UREA NITROGEN 27 mg/dl (7-18); CALCIUM 9.3 mg/dl (8.5-10.1); CARBON DIOXIDE 28 mmol/L (21-32); CREATININE 1.45 mg/dl (0.60-1.20); GLUCOSE 92 mg/dl (70-99); SODIUM 138 mmol/L (136-145); TOTAL PROTEIN 7.9 gm/dl (6.4-8.2)
== END | disposition home or self-care (01) ==
LOC: C.LABBFT 10:42
PROVIDERS: ATTEND Internal Medicine
DX: R73.01 Impaired fasting glucose (principal); E55.9 Vitamin D deficiency, unspecified; I12.9 Hypertensive chronic kidney disease with stage 1 through stage 4 chronic kidney disease, or unspecified chronic kidney disease; N18.3 Chronic kidney disease, stage 3 (moderate)

== ENCOUNTER 2018-06-24 15:14 | Inpatient (IN) ==
[2018-06-24] MEDS ORDERED: ACETAMINOPHEN 1000 MG/100 ML IV IV ONE (16:02)
--- NOTE | 2018-06-24 16:16 | Emergency Department Note ---
Entered by Zoraida Velasco acting as a scribe for History of Present Illness General Chief complaint: Abdominal Pain Stated complaint: AB PAIN Time Seen by Provider: 06/24/18 15:14 Source: patient Mode of arrival: ambulatory Limitations: no limitations History of Present Illness Onset (ago): day(s) 1 Location: abdomen Severity: severe Pain Consistency: + intermittent Maximum Pain Intensity: 10 Current Pain Intensity: 0 Relieved By: + none Associated symptoms: + diaphoresis, + fever/chills, + loss of appetite, + nausea/vomiting (The patient complains of vomiting. ) and + other ( The patient denies urinary symptoms.) The patient is a 75 year old female with a history of cholecystectomy, DVT, and hypertension who presents to the ED via EMS with complaints of intermittent abdominal pain that onset 1 day ago. The patient presents with her . The patient states that she had a tubal ligation completed 44 years ago and noticed an umbilical hernia forming. The patient mentioned that the protrusion occasionally bleeds but stops when she uses alcohol on the area. She notes that she has had intermittent abdominal pain for the past 6 months. The patient states that the pain worsened last night and kept her up throughout the night. She describes the pain as sharp, severe, and rates it as a 10/10. The patient notes that the pain typically lasts for 2 minutes and resolves without intervention. The patient complains of vomiting once, diaphoresis, loss of appetite, fever, and chills. The patient denies urinary symptoms. She states that her last bowl movement was yesterday and was normal. The patient notes that she is on Eliquis. Home Medications Home Medications Medication Instructions Recorded Confirmed Type cholecalciferol (vitamin D3) 1,000 unit PO DAILY 10/18/17 06/24/18 History [Vitamin D3] febuxostat 80 mg PO DAILY 10/18/17 06/24/18 History hydrochlorothiazide 25 mg PO DAILY 10/18/17 06/24/18 History lisinopril 10 mg PO DAILY 10/18/17 06/24/18 History multivitamin 1 tab PO DAILY 10/18/17 06/24/18 History apixaban [Eliquis] 2.5 mg PO BID 06/24/18 06/24/18 History gabapentin 300 mg PO BID 06/24/18 06/24/18 History tramadol 100 mg PO QID 06/24/18 06/24/18 History Allergies Allergy/AdvReac Type Severity Reaction Status Date / Time celecoxib Allergy Unknown PT UNSURE Verified 06/24/18 16:03 Past Med/Surg History Medical History Hypertension (Chronic) CKD (chronic kidney disease) stage 3, GFR 30-59 ml/min (Chronic) Medication induced coagulopathy (Chronic) Factor 5 Leiden mutation, heterozygous (Chronic) Colon obstruction (Acute) Vasovagal response Dizziness Neuropathy No pertinent family history Surgical History S/P cholecystectomy H/O tubal ligation Family History Other No pertinent family history Social History Preferred Language: Monegasque Communication Ability: Effective Visual Impairment: No Limitations Hearing Ability: Normal Beliefs That Will Affect Care: None Current Living Situation: Spouse Other Information That Helps Us Care for You: No Feels Safe at Home: Yes Safety Concerns: Feels Safe At This Time Smoking Status: Never smoker Hx Alcohol Use: No Hx Substance Use: No Review of Systems See HPI for pertinent positives & negatives. and A total of 10 systems reviewed and were otherwise negative Physical Exam Vital Signs Vital Signs - 24 hr 06/24/18 15:19 06/24/18 17:10 06/24/18 18:21 Temperature 37.0 C Temperature Source Oral Sepsis Recent Fever Within 48 Hours No Sepsis New/Unexplained Change in Mental Status No Sepsis Action Taken by Nursing No Action Required Pulse Rate 85 Pulse Rate [Apical] 95 H 93 H Pulse Rate [Left Finger] Pulse Rhythm Regular Pulse Rhythm [Apical] Regular Regular Pulse Strength Normal Pulse Strength [Apical] Normal Normal Respiratory Rate 18 18 16 Respiratory Effort / Characteristics Non-Labored Spontaneous Non-Labored Spontaneous Non-Labored Spontaneous Respiratory Depth Normal Normal Normal Respiratory Pattern Regular Regular Regular Blood Pressure 144/84 H Blood Pressure [Left Arm] Blood Pressure [Right Arm] 165/76 H 150/68 H Blood Pressure Mean 104 Blood Pressure Mean [Left Arm] Blood Pressure Mean [Right Arm] 105 95 Blood Pressure Position Lying Blood Pressure Position [Left Arm] Blood Pressure Position [Right Arm] Lying Lying Pulse Oximetry 96 98 97 Oxygen Delivery Method Room Air Room Air Room Air 06/24/18 19:58 06/24/18 20:58 06/24/18 21:27 Temperature 36.7 C Temperature Source Oral Sepsis Recent Fever Within 48 Hours Sepsis New/Unexplained Change in Mental Status Sepsis Action Taken by Nursing Pulse Rate Pulse Rate [Apical] 96 H 97 H Pulse Rate [Left Finger] 104 H Pulse Rhythm Pulse Rhythm [Apical] Pulse Strength Pulse Strength [Apical] Respiratory Rate 15 18 18 Respiratory Effort / Characteristics Non-Labored Non-Labored Respiratory Depth Normal Normal Respiratory Pattern Regular Regular Blood Pressure Blood Pressure [Left Arm] 161/74 H 136/76 150/83 H Blood Pressure [Right Arm] Blood Pressure Mean Blood Pressure Mean [Left Arm] 103 96 105 Blood Pressure Mean [Right Arm] Blood Pressure Position Blood Pressure Position [Left Arm] Sitting Blood Pressure Position [Right Arm] Pulse Oximetry 96 94 95 Oxygen Delivery Method Room Air Room Air Room Air GENERAL: 40.9 kg/m^2Awake, alert, well-appearing, in no distress HENT: Normocephalic, atraumatic. Oropharynx with dry mucous membranes and otherwise unremarkable. EYES: Normal conjunctiva. Sclera non-icteric. NECK: Supple. No nuchal rigidity. FROM. No JVD. RESPIRATORY: Normal exam. CARDIAC: Regular rate, normal rhythm. Extremities warm and well perfused. Pulses equal. ABDOMEN: Umbilical hernia with mild tenderness, but soft. nonreducible. Otherwise generalized abdominal discomfort without discrete ttp. No rebound or guarding. RECTAL: Deferred. MUSCULOSKELETAL: Chest examination reveals no tenderness. The back is symmetrical on inspection without obvious abnormality. There is no CVA ten derness to palpation. No joint edema. LOWER EXTREMITIES: Calves are equal size bilaterally and non-tender. No edema. No discoloration. NEURO: Normal sensorium. No sensory or motor deficits noted. SKIN: No rash or jaundice noted. Course 151: Past medical records reviewed. The patient was evaluated in room C04. A complete history and physical examination was performed. 174: Resident., Dr. Mariscal discussed case and CT findings with Dr. Salguero GI on-call. 1804: Dr. Mariscal discussed case with Dr. Shah, [facility] hospitalist, who will evaluate the patient for admission. Administered Medications Ioversol (Optiray 320 100ml) 94 ml IV ONCE PRN PRN Reason: Interaction Checking Stop: 06/28/18 17:05 Last Admin: 06/24/18 17:06 Dose: 94 ml Documented by: [id number] Discontinued Medications Acetaminophen (Ofirmev) Confirm Administered Dose 1,000 mg IV .STK-MED ONE Stop: 06/24/18 16:03 Last Admin: 06/24/18 16:09 Dose: 1,000 mg Documented by: [id number] Prochlorperazine (Compazine) 2 mls @ 1 mls/min IV ONE ONE Stop: 06/24/18 18:04 Last Admin: 06/24/18 18:20 Dose: 1 mls/min Documented by: [id number] Sodium Chloride (Nss) 500 mls @ 125 mls/hr IV .Q4H STA Stop: 06/24/18 22:08 Last Admin: 06/24/18 18:21 Dose: 125 mls/hr Documented by: [id number] Morphine Sulfate (Morphine Sulfate) Confirm Administered Dose 2 mg .ROUTE .STK- MED ONE Stop: 06/24/18 20:54 Last Admin: 06/24/18 20:54 Dose: 2 mg Documented by: [id number] Medical Decision Making Differential Diagnosis Differential diagnoses: Appendicitis, diverticulitis, PUD, biliary pathology, UTI, pancreatitis, obstruction, mesenteric ischemia, aortic pathology, infections, inflammatory bowel disease, renal colic, as well as others were entertained. Medical Records Attestation: I reviewed the patient's medical records. Home Medications Current Medication List: was personally reviewed by me Laboratory Data Attestation: I reviewed the patient's lab results. Result diagrams: 06/24/18 16:24 06/24/18 16:24 Lab Results 06/24/18 06/24/18 06/24/18 Range/Units 16:24 16:24 16:31 WBC 7.11 (4.8-10.8) K/uL RBC 3.96 L (4.2-5.4) M/uL Hgb 12.9 (12.0-16.0) g/dL POC Hgb 13.3 (12.0-16.0) g/dl Hct 37.9 (37-47) % POC Hct 39 (37-47) % MCV 95.7 (80-100) fL MCH 32.6 (25-34) pg MCHC 34.0 (32-36) g/dL RDW Std Deviation 44.4 (36.4-46.3) fL RDW Coeff of Zee 12.8 (11.5-14.5) % Plt Count 231 (130-400) K/uL MPV 9.5 (7.4-10.4) fL POC Sodium 137 (135-144) mEq/L Sodium 135 L (136-145) mmol/L POC Potassium 4.4 (3.3-5.0) mEq/L Potassium 4.2 (3.5-5.1) mmol/L POC Chloride 101 (101-112) mEq/L Chloride 103 (98-107) mmol/L Carbon Dioxide 26 (21-32) mmol/L POC Total CO2 24 (24-31) mEq/l Anion Gap 6.0 (3-11) POC Anion Gap 17.0 (16-25) mmol/L POC BUN 28 H (7-18) mg/dl BUN 27 H (7-18) mg/dl Creatinine 1.34 H (0.6-1.2) mg/dl POC Creatinine 1.3 (0.6-1.3) mg/dl Est Cr Clr Drug Dosing 40.1 ml/min Est GFR ( Amer) 45.4 Est GFR (Non-Af Amer) 39.2 BUN/Creatinine Ratio 20.1 H (10-20) Glucose 102 H (70-99) mg/dl POC Glucose (other) 107 H (70-99) mg/dl Calcium 9.3 (8.5-10.1) mg/dl POC Ioniz Calcium Jamie 1.17 (1.12-1.32) mmol/l Total Bilirubin 0.6 (0.2-1) mg/dl AST 21 (15-37) U/L ALT 24 (12-78) U/L Alkaline Phosphatase 89 (45-117) U/L Total Protein 7.8 (6.4-8.2) gm/dl Albumin 3.7 (3.4-5.0) gm/dl Globulin 4.1 H (2.5-4.0) gm/dl Albumin/Globulin Ratio 0.9 (0.9-2) Lipase 125 (73-393) U/L Urine Color Urine Appearance (Clear) Urine pH (4.5-7.5) Ur Specific [place] (1.000-1.030) Urine Protein (Negative) Urine Glucose (UA) (Negative) Urine Ketones (Negative) Urine Blood (Negative) Urine Nitrite (Negative) Urine Bilirubin (Negative) Urine Urobilinogen (Negative) Ur Leukocyte Esterase (Negative) 06/24/18 Range/Units 18:44 WBC (4.8-10.8) K/uL RBC (4.2-5.4) M/uL Hgb (12.0-16.0) g/dL POC Hgb (12.0-16.0) g/dl Hct (37-47) % POC Hct (37-47) % MCV (80-100) fL MCH (25-34) pg MCHC (32-36) g/dL RDW Std Deviation (36.4-46.3) fL RDW Coeff of Zee (11.5-14.5) % Plt Count (130-400) K/uL MPV (7.4-10.4) fL POC Sodium (135-144) mEq/L Sodium (136-145) mmol/L POC Potassium (3.3-5.0) mEq/L Potassium (3.5-5.1) mmol/L POC Chloride (101-112) mEq/L Chloride (98-107) mmol/L Carbon Dioxide (21-32) mmol/L POC Total CO2 (24-31) mEq/l Anion Gap (3-11) POC Anion Gap (16-25) mmol/L POC BUN (7-18) mg/dl BUN (7-18) mg/dl Creatinine (0.6-1.2) mg/dl POC Creatinine (0.6-1.3) mg/dl Est Cr Clr Drug Dosing ml/min Est GFR ( Amer) Est GFR (Non-Af Amer) BUN/Creatinine Ratio (10-20) Glucose (70-99) mg/dl POC Glucose (other) (70-99) mg/dl Calcium (8.5-10.1) mg/dl POC Ioniz Calcium Jamie (1.12-1.32) mmol/l Total Bilirubin (0.2-1) mg/dl AST (15-37) U/L ALT (12-78) U/L Alkaline Phosphatase (45-117) U/L Total Protein (6.4-8.2) gm/dl Albumin (3.4-5.0) gm/dl Globulin (2.5-4.0) gm/dl Albumin/Globulin Ratio (0.9-2) Lipase (73-393) U/L Urine Color Yellow Urine Appearance Clear (Clear) Urine pH 5.0 (4.5-7.5) Ur Specific [place] > 1.045 H (1.000-1.030) Urine Protein Negative (Negative) Urine Glucose (UA) Negative (Negative) Urine Ketones Negative (Negative) Urine Blood Negative (Negative) Urine Nitrite Negative (Negative) Urine Bilirubin Negative (Negative) Urine Urobilinogen Negative (Negative) Ur Leukocyte Esterase Negative (Negative) Imaging Data Radiologist's Impression: Radiology results as stated below per my review and the radiologist's interpretation: CT abd pelvis IV con only CT DOSE: 835.07 mGy.cm HISTORY: Pain abd pain TECHNIQUE: Multiaxial CT images of the abdomen and pelvis were performed following the use of intravenous contrast. A dose lowering technique was utilized adhering to the principles of ALARA. COMPARISON STUDY: 04/23/2017 FINDINGS: 7 mm nodular density left base unchanged. Lung bases otherwise are clear. Liver spleen and pancreas are considered unremarkable. Pancreas is fatty replaced. Cholecystectomy. Kidneys are considered negative for calcification or hydronephrosis. Moderate fluid-filled distention of the a sending and transverse colonic region. Focal rather broad change in caliber at the level of the splenic flexure. This is best seen image 23. Possibility of an annular lesion must be considered. The more distal aspects of the colon demonstrates scattered colonic diverticulos is. There is no evidence for acute diverticulitis. There is mild reactive small bowel ileus. There is no significant adenopathy involving the abdominal abdomen pelvic or inguinal regions. There is a fat-containing ventral hernia unchanged in the prior study. There is no evidence for bowel containment or obstructive characteristics. IMPRESSION: 1. Fluid-filled distention of the proximal and mid colon. 2. Abrupt changing caliber adjacent to the splenic flexure raising the possibility of an annular lesion. 3. Colonoscopy is suggested to exclude possibility of an obstructing lesion or neoplasm. 4. The remainder of the study shows no additional acute process. 5. Prior cholecystectomy. The above report was generated using voice recognition software. It may contain grammatical, syntax or spelling errors. Electronically signed by: Adam White M.D. 06/24/2018 5:16 PM Blood Pressure Blood Pressure Findings: Normal blood pressure MDM Narrative The patient is a pleasant 72-year-old woman with a past medical history of DVT with factor V Leiden mutation on Eliquis, remote tubal ligation and cholecystectomy, CKD who presents emergency department with umbilical hernia pain with nausea and vomiting per hpi. On arrival the patient is in no acute distress, afebrile stable vital signs. On exam the patient has a umbilical hernia that is mildly tender but soft. Otherwise generalized abdominal discomfort without discrete ttp. There are no peritoneal signs. WBC, H/H, platelets wnl. Creatinine 1.34 improved from recent values. Chemistry without acidosis. LFTs and electrolytes unremarkable. CT abdomen pelvis with IV contrast demonstrates fat-containing umbilical hernia that is unchanged. There is however note made fluid-filled distention of the proximal and mid colon with abrupt change in caliber adjacent to the splenic fracture that raises the possibility of an annular lesion/neoplasm. Findings reviewed with patient by resident, Dr. Mariscal. Patient denies prior colonoscopy. Dr. Mariscal discussed case with Dr. Salguero, GI on-call. Colonoscopy can be performed in patient or outpatient and disposition today would depend on patient's symptoms/clinical picture. Patient subsequently failed PO trial with dry heaves after attempt to drink water. Thus will admit, Dr. Mariscal discussed case with Dr. Shah, [facility] hospitalist, who will evaluate the patient for admission. This patient was managed with the assistance of resident, Dr. Mariscal I discussed the case with the resident, examined the patient, and confirm the findings and plan as documented in this note. Impression & Plan Nausea & vomiting, Abdominal pain Discharge Plan Visit Data *Final* Discharge Date/Time: 06/24/18 21:05 Chief Complaint: Abdominal Pain Stated Complaint: AB PAIN ED Provider: Gregg Rico ED Midlevel Provider: Tyesha Mariscal Discharge Problem: Nausea & vomiting, Abdominal pain Patient Disposition: Admitted As Inpatient Discharge Instructions Interventions: ED Discharge Assessment Last Done: 06/24/18 21:05 Discharge Problem: Nausea & vomiting Qualifiers: Vomiting type: unspecified Vomiting Intractability: unspecified Qualified Code(s): R11.2 - Nausea with vomiting, unspecified Abdominal pain Qualifiers: Abdominal location: generalized Qualified Code(s): R10.84 - Generalized abdominal pain The scribe's documentation has been prepared under my direction and personally reviewed by me in its entirety. I confirm that the note above accurately reflects all work, treatment, procedures, and medical decision making performed by me.
[2018-06-24 16:42] LABS: Hematocrit (blood only) 37.9 % (37-47); Hemoglobin 12.9 g/dL (12.0-16.0); Mean Corpuscular Volume 95.7 fL (80-100); Mean Platelet Volume 9.5 fL (7.4-10.4); Platelet Count 231 K/uL (130-400); RDW Coefficient of Variation 12.8 % (11.5-14.5); RDW Standard Deviation 44.4 fL (36.4-46.3); Red Blood Count 3.96 M/uL (4.2-5.4); White Blood Count 7.11 K/uL (4.8-10.8)
[2018-06-24 16:44] LABS: iSTAT Creatinine 1.3 mg/dl (0.6-1.3); iSTAT Hemoglobin 13.3 g/dl (12.0-16.0); iSTAT Ionized Calcium 1.17 mmol/l (1.12-1.32); iSTAT Potassium 4.4 mEq/L (3.3-5.0)
[2018-06-24 17:04] LABS: Albumin Level 3.7 gm/dl (3.4-5.0); BUN Creatinine Ratio 20.1 (10-20); Calcium 9.3 mg/dl (8.5-10.1); Creatinine Clr Calc Pharmacy 40.1 ml/min; Est GFR (African American) 45.4; Est GFR (Non-African American) 39.2; Potassium 4.2 mmol/L (3.5-5.1)
[2018-06-24] MEDS ORDERED: IOVERSOL 100ml IV PRN (17:06)
[2018-06-24 17:08] LABS: Albumin Globulin Ratio 0.9 (0.9-2); Bilirubin,Total 0.6 mg/dl (0.2-1); Globulin 4.1 gm/dl (2.5-4.0); Total Protein 7.8 gm/dl (6.4-8.2)
--- NOTE | 2018-06-24 17:17 | CT Scan Report ---
CT abd pelvis IV con only CT DOSE: 835.07 mGy.cm HISTORY: Pain abd pain TECHNIQUE: Multiaxial CT images of the abdomen and pelvis were performed following the use of intrave nous contrast. A dose lowering technique was utilized adhering to the principles of ALARA. COMPARISON STUDY: 04/23/2017 FINDINGS: 7 mm nodular density left base unchanged. Lung bases otherwise are clear. Liver spleen and pancreas are considered unremarkable. Pancreas is fatty replaced. Cholecystectomy. Kidneys are considered negative for calcification or hydronephrosis. Moderate fluid-filled distention of the a sending and transverse colonic region. Focal rather broad c hange in caliber at the level of the splenic flexure. This is best seen image 23. Possibility of an a nnular lesion must be considered. The more distal aspects of the colon demonstrates scattered colonic diverticulosis. There is no evide nce for acute diverticulitis. There is mild reactive small bowel ileus. There is no significant adeno emilie involving the abdominal abdomen pelvic or inguinal regions. There is a fat-containing ventral hernia unchanged in the prior study. There is no evidence for bowel containment or obstructive characteristics. IMPRESSION: 1. Fluid-filled distention of the proximal and mid colon. 2. Abrupt changing caliber adjacent to the splenic flexure raising the possibility of an annular lesi on. 3. Colonoscopy is suggested to exclude possibility of an obstructing lesion or neoplasm. 4. The remainder of the study shows no additional acute process. 5. Prior cholecystectomy. The above report was generated using voice recognition software. It may contain grammatical, syntax or spelling errors. Electronically signed by: Adam White M.D. 06/24/2018 5:16 PM
[2018-06-24] MEDS ORDERED: PROCHLORPERAZINE 2 ML IV ONE (18:03)
[2018-06-24] MEDS ORDERED: SODIUM CHLORIDE 0.9% 500 ML IV STA (18:09)
--- NOTE | 2018-06-24 19:01 | History & Physical Report ---
Date of Service June 24, 2018 Assessment & Plan (1) Colon obstruction: It appears to be a subtotal obstruction. She does have some colonic distention proximal to the splenic flexure but she did have a bowel movement earlier this morning. She will be kept n.p.o. and given IV fluids. Eliquis will be discontinued. General surgery and end-stage GI have been consulted to see the patient. Present on Admission?: Yes (2) Factor 5 Leiden mutation, heterozygous: Eliquis will be placed on hold. She has a history of recurrent left lower extremity DVT Present on Admission?: Yes (3) Medication induced coagulopathy: Eliquis will be placed on hold Present on Admission?: Yes (4) CKD (chronic kidney disease) stage 3, GFR 30-59 ml/min: Administer IV fluids. Monitor intake and output. Serial labs (5) Hypertension: Continue lisinopril. Hydrochlorothiazide is placed on hold. History of Present Illness Chief Complaint: Progressively worsening abdominal pain and cramping and progressively worsening vomiting Primary Care Provider: Eliel Sykes MD 72-year-old female with intermittent abdominal cramping and pain with progressively worsening nausea and vomiting. She denies any weight loss and actually had a normal bowel movement this morning. She came to the ED for evaluation. Abdominal CT scan reveals a mass in the splenic flexure area with impending obstruction. She is not totally obstructed however since she had a bowel movement this morning she describes as normal. She did denies any melena or hematochezia. She does feel a little bloated however. She does have some colonic distention behind the splenic flexure. [facility] GI service and general surgery have been consulted. She will be kept n.p.o. 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 Eliquis will be discontinued. Allergies Allergy/AdvReac Type Severity Reaction Status Date / Time celecoxib Allergy Unknown PT UNSURE Verified 06/24/18 16:03 Home Medications Home Medications Medication Instructions Recorded Confirmed Type cholecalciferol (vitamin D3) 1,000 unit PO DAILY 10/18/17 06/24/18 History [Vitamin D3] febuxostat 80 mg PO DAILY 10/18/17 06/24/18 History hydrochlorothiazide 25 mg PO DAILY 10/18/17 06/24/18 History lisinopril 10 mg PO DAILY 10/18/17 06/24/18 History multivitamin 1 tab PO DAILY 10/18/17 06/24/18 History apixaban [Eliquis] 2.5 mg PO BID 06/24/18 06/24/18 History gabapentin 300 mg PO BID 06/24/18 06/24/18 History tramadol 100 mg PO QID 06/24/18 06/24/18 History Past Med/Surg History Medical History Hypertension (Chronic) CKD (chronic kidney disease) stage 3, GFR 30-59 ml/min (Chronic) Medication induced coagulopathy (Chronic) Factor 5 Leiden mutation, heterozygous (Chronic) Colon obstruction (Acute) Vasovagal response Dizziness Neuropathy No pertinent family history Surgical History S/P cholecystectomy H/O tubal ligation Family History Other No pertinent family history Social History Preferred Language: Samoan Communication Ability: Effective Visual Impairment: No Limitations Hearing Ability: Normal Feels Safe at Home: Yes Smoking Status: Never smoker Review of Systems Review of Systems: All systems reviewed & are unremarkable except as noted in HPI & below Gastrointestinal: + abdominal pain, + nausea, + vomiting and + cramping; no blood in stools and no melena Physical Exam Constitutional: WD/WN, vitals as above Eyes: PERRL, conjunctivae normal, anicteric sclerae ENMT: external ear and nose normal, oropharynx normal Neck: trachea midline, no thyromegaly Respiratory: normal respiratory effort, lungs clear to auscultation Cardiovascular: RRR, no murmur, no edema Gastrointestinal (Abdomen): Inspection/Auscultation: + abdomen distended and normal bowel sounds Percussion/Palpation: + abdomen tender; no guarding, no hepatosplenomegaly, no abdominal mass and no ascites Musculoskeletal: no cyanosis or clubbing, extremities motor strength 5/5 Skin: no rashes, warm and dry Neurologic: CN's II-XI intact bilaterally and moves all extremities; no focal motor deficits Results & Data Vital Signs (Past 12 Hours) Vital Signs Temp Pulse Pulse Resp BP BP Pulse Ox 06/24/18 18:21 93 H 16 150/68 H 97 06/24/18 17:10 95 H 18 165/76 H 98 06/24/18 15:19 37.0 C 85 18 144/84 H 96 Laboratory Results 06/24/18 16:24 06/24/18 16:24
[2018-06-24 19:14] LABS: Appearance Urine Clear (Clear); Bilirubin Urine Negative (Negative); Blood Urine Negative (Negative); Color Urine Yellow; Glucose Urine UA Negative (Negative); Ketones Urine Negative (Negative); Leukocyte Esterase Urine Negative (Negative); Nitrite Urine Negative (Negative); Protein Urine Negative (Negative); Specific Gravity Urine > 1.045 (1.000-1.030); Urobilinogen Urine Negative (Negative)
[2018-06-24] MEDS ORDERED: MoRPHine SULFATE 2 MG/ML CARP ONE (20:53)
[2018-06-24] MEDS ORDERED: ONDANSETRON INJ 2 MG/ML 2 ML VIAL IV PRN (21:27)
[2018-06-24] MEDS: GABAPENTIN 300 MG CAP PO SCH (23:06)
[2018-06-24] MEDS: SODIUM CHLORIDE 0.9% 1000ML 1,000 ML IV SCH (23:06)
[2018-06-25] MEDS: MoRPHine SULFATE 2 MG/ML CARP IV PRN (00:05)
[2018-06-25] MEDS: ACETAMINOPHEN 325 MG TAB PO PRN (00:48)
[2018-06-25 07:48] LABS: Basophils # (auto) 0.01 K/uL (0-0.2); Basophils % (auto) 0.1 %; Hematocrit (blood only) 36.6 % (37-47); Hemoglobin 12.5 g/dL (12.0-16.0); Immature Granulocytes # (auto) 0.02 K/uL (0.00-0.02); Immature Granulocytes % (auto) 0.3 %; Lymphocytes # (auto) 1.29 K/uL (1.2-3.4); Lymphocytes % (auto) 18.2 %; Mean Corpuscular Hgb Conc 34.2 g/dL (32-36); Mean Corpuscular Volume 95.1 fL (80-100); Mean Platelet Volume 9.3 fL (7.4-10.4); Monocytes # (auto) 0.46 K/uL (0.11-0.59); Monocytes % (auto) 6.5 %; Neutrophils % (auto) 74.9 %; Platelet Count 236 K/uL (130-400); RDW Coefficient of Variation 13.1 % (11.5-14.5); RDW Standard Deviation 45.1 fL (36.4-46.3); Red Blood Count 3.85 M/uL (4.2-5.4); White Blood Count 7.08 K/uL (4.8-10.8)
[2018-06-25 08:16] LABS: BUN Creatinine Ratio 20.5 (10-20); Calcium 8.9 mg/dl (8.5-10.1); Creatinine Clr Calc Pharmacy 41.7 ml/min; Est GFR (African American) 49.9; Est GFR (Non-African American) 43.1; Potassium 3.8 mmol/L (3.5-5.1)
[2018-06-25] MEDS: GABAPENTIN 300 MG CAP PO SCH ×2 (08:55→21:34)
[2018-06-25] MEDS: LISINOPRIL 10 MG TAB PO SCH (08:55)
[2018-06-25] MEDS: SODIUM CHLORIDE 0.9% 1000ML 1,000 ML IV SCH ×2 (08:58→19:15)
--- NOTE | 2018-06-25 09:24 | Surgery Consultation ---
Date of Consultation June 25, 2018 Assessment & Plan (1) Colon obstruction: Partially obstructing lesion/stricture, should tolerate bowel prep for colonoscopy. Await Input from GI. Dr. Ridley will be following. Eliquis is being held (day 1). History of Present Illness Attending Physician: Chandler Lopez MD History of Present Illness 72 y/o female with abdominal discomfort for the past week, localized more last night to the umbilical area where she's had a hernia for many years. Also had 1 episode of vomiting so she came to the ED and was admitted for colonic stricture around the splenic flexure. Has never had colonoscopy. No known arterial disease. 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 Has occasional diarrhea. Had formed BM yesterday morning but 3 loose BM overnight. Allergies Allergy/AdvReac Type Severity Reaction Status Date / Time celecoxib Allergy Unknown PT UNSURE Verified 06/24/18 16:03 Home Medications Home Medications Medication Instructions Recorded Confirmed Type cholecalciferol (vitamin D3) 1,000 unit PO DAILY 10/18/17 06/24/18 History [Vitamin D3] febuxostat 80 mg PO DAILY 10/18/17 06/24/18 History hydrochlorothiazide 25 mg PO DAILY 10/18/17 06/24/18 History lisinopril 10 mg PO DAILY 10/18/17 06/24/18 History multivitamin 1 tab PO DAILY 10/18/17 06/24/18 History apixaban [Eliquis] 2.5 mg PO BID 06/24/18 06/24/18 History gabapentin 300 mg PO BID 06/24/18 06/24/18 History tramadol 100 mg PO QID 06/24/18 06/24/18 History Patient History Medical History Hypertension (Chronic) CKD (chronic kidney disease) stage 3, GFR 30-59 ml/min (Chronic) Medication induced coagulopathy (Chronic) Factor 5 Leiden mutation, heterozygous (Chronic) Colon obstruction (Acute) Vasovagal response Dizziness Neuropathy No pertinent family history Surgical History S/P cholecystectomy H/O tubal ligation Family History Other No pertinent family history Social History Preferred Language: Djiboutian Communication Ability: Effective Visual Impairment: No Limitations Hearing Ability: Normal Beliefs That Will Affect Care: None Current Living Situation: Spouse Other Information That Helps Us Care for You: No Feels Safe at Home: Yes Safety Concerns: Feels Safe At This Time Smoking Status: Never smoker Hx Alcohol Use: No Hx Substance Use: No Review of Systems Constitutional: + chills; no anorexia and no weight loss Gastrointestinal: + abdominal pain, + bloating, + vomiting and + diarrhea/ loose stools; no nausea, no change in bowel habits, no constipation, no constant urge to pass stools and no blood in stools Physical Exam Constitutional: WD/WN, vitals as above Respiratory: normal respiratory effort, lungs clear to auscultation Cardiovascular: RRR, no murmur, no edema Gastrointestinal (Abdomen): Inspection/Auscultation: abdomen not distended Percussion/Palpation: abdomen soft and + hernia (soft reducible umbilical hernia) Skin: no rashes, warm and dry Results & Data Vital Signs (Past 12 Hours) Vital Signs Temp Pulse Pulse Resp BP Pulse Ox 06/25/18 07:20 37.0 C 87 17 138/76 94 06/24/18 23:01 36.7 C 97 H 16 142/67 H 96 06/24/18 21:27 36.7 C 104 H 18 150/83 H 95 Diagnostic Findings [place], [place] [phone] CT Scan Report Patient: KING LOPEZ Date: 06/24/18 MR#: [id number]: [address] [facility] Acct ID:[id number]: Date: 1945[facility] Zip: [place] [id number] Age: 72Location: ED Sex: F Room/Bed: Att Phy: Diagnosis: AB PAIN Stephany Phy: Eliel Sykes III, MDService Date: 06/24/18 Fam Phy: Interpreting Phy: Adam White MD Admit Phy: Ordering Phy: Gregg Rico M.D. cc: ~ CT abd pelvis IV con only CT DOSE: 835.07 mGy.cm HISTORY: Pain abd pain TECHNIQUE: Multiaxial CT images of the abdomen and pelvis were performed following the use of intravenous contrast. A dose lowering technique was utilized adhering to the principles of ALARA. COMPARISON STUDY: 04/23/2017 FINDINGS: 7 mm nodular density left base unchanged. Lung bases otherwise are clear. Liver spleen and pancreas are considered unremarkable. Pancreas is fatty replaced. Cholecystectomy. Kidneys are considered negative for calcification or hydronephrosis. Moderate fluid-filled distention of the a sending and transverse colonic region. Focal rather broad change in caliber at the level of the splenic flexure. This is best seen image 23. Possibility of an annular lesion must be considered. The more distal aspects of the colon demonstrates scattered colonic diverticulo sis. There is no evidence for acute diverticulitis. There is mild reactive small bowel ileus. There is no significant adenopathy involving the abdominal abdomen pelvic or inguinal regions. There is a fat-containing ventral hernia unchanged in the prior study. There is no evidence for bowel containment or obstructive characteristics. IMPRESSION: 1. Fluid-filled distention of the proximal and mid colon. 2. Abrupt changing caliber adjacent to the splenic flexure raising the possibility of an annular lesion. 3. Colonoscopy is suggested to exclude possibility of an obstructing lesion or neoplasm. 4. The remainder of the study shows no additional acute process. 5. Prior cholecystectomy. The above report was generated using voice recognition software. It may contain grammatical, syntax or spelling errors. Electronically signed by: Adam White M.D. 06/24/2018 5:16 PM
--- NOTE | 2018-06-25 12:41 | Hospitalist Progress Note ---
Date of Service June 25, 2018 Assessment & Plan (1) Colon obstruction: It appears to be a subtotal obstruction. She does have some colonic distention proximal to the splenic flexure but she did have a bowel movement earlier this morning. Possible colon CA still be to ruled out causing colon obstruction. - Continue NPO and IV fluids. - Hold Eliquis - Seen by surgery; defer to GI - GI consult pending (2) Factor 5 Leiden mutation, heterozygous: History of recurrent left lower extremity DVT. - Holding Eliquis until procedures are done (3) Hypertension: BP presently 150/75. - Continue lisinopril - Hold hydrochlorothiazide - Monitor BP (4) CKD (chronic kidney disease) stage 3, GFR 30-59 ml/min: Baseline Cr ~1.5; eGFR 40. - On admission, Cr was at baseline. - Monitor Cr (5) DVT prophylaxis: SCDs until seen by GI and no procedures planned Subjective With continued diarrhea. Review of Systems Review of Systems: All systems reviewed & are unremarkable except as noted in HPI & below Physical Exam Constitutional: WD/WN, vitals as above Eyes: EOM intact bilaterally; no conjunctival abnormality ENMT: external ear and nose normal, oropharynx normal Neck: trachea midline, no thyromegaly normal visual inspection Respiratory: normal respiratory effort, lungs clear to auscultation no respiratory distress Cardiovascular: RRR, no murmur, no edema Gastrointestinal (Abdomen): Inspection/Auscultation: abdomen normal to inspection; abdomen not distended Musculoskeletal: no cyanosis or clubbing, extremities motor strength 5/5 Skin: no rashes, warm and dry Neurologic: moves all extremities and awake Psychiatric: Orientation: alert, oriented to person and cooperative Results & Data Vital Signs (Past 12 Hours) Vital Signs Temp Pulse Resp BP Pulse Ox 06/25/18 11:39 37.0 C 93 H 18 148/76 H 96 06/25/18 07:20 37.0 C 87 17 138/76 94
[2018-06-25] MEDS ORDERED: POLYETHYLENE GLYCOL 3350 238 GM BTL PO SCH (16:00)
--- NOTE | 2018-06-25 16:05 | Gastrointestinal Consultation ---
Date of Consultation June 25, 2018 Assessment & Plan (1) Colon obstruction: Discussed this can be from cancer in splenic flexure to to diagnose would need colonoscopy as first choice to document and biopsy as needed. Will see if she can tolerate miralax prep and if so proceed with colonscopy in next day or two depending on prep. Clear liquid diet for now. Proc and risks explained which include but not limited to med reaction, bleeding, perforation, aspiration, and missed lesions. Splenic flexure mass--as above. History of Present Illness Reason for Consultation: colon mass with obstruction Requesting Physician: DR Edgardo Shah Attending Physician: Chandler Melo MD History of Present Illness cc abd pain HPI Pt states she moves bowels regularly and actually since admit has loose stools. She presented to ER with pain at umbilicus from umbilical hernia. CT a/p done which showed splenic flexure mass with proximal colon dilatastion. She had n/v post morphine in ER but none prior or since. She denies abd pain at present. Surgery was consulted and thought she could tolerate a prep and have colonscopy to make firm diagnosis. She is on Eliquis for Factor V Ledein deficiency. Allergies Allergy/AdvReac Type Severity Reaction Status Date / Time celecoxib Allergy Unknown PT UNSURE Verified 06/24/18 16:03 Home Medications Home Medications Medication Instructions Recorded Confirmed Type cholecalciferol (vitamin D3) 1,000 unit PO DAILY 10/18/17 06/24/18 History [Vitamin D3] febuxostat 80 mg PO DAILY 10/18/17 06/24/18 History hydrochlorothiazide 25 mg PO DAILY 10/18/17 06/24/18 History lisinopril 10 mg PO DAILY 10/18/17 06/24/18 History multivitamin 1 tab PO DAILY 10/18/17 06/24/18 History apixaban [Eliquis] 2.5 mg PO BID 06/24/18 06/24/18 History gabapentin 300 mg PO BID 06/24/18 06/24/18 History tramadol 100 mg PO QID 06/24/18 06/24/18 History Patient History Medical History Hypertension (Chronic) CKD (chronic kidney disease) stage 3, GFR 30-59 ml/min (Chronic) Medication induced coagulopathy (Chronic) Factor 5 Leiden mutation, heterozygous (Chronic) Colon obstruction (Acute) Vasovagal response Dizziness Neuropathy No pertinent family history Surgical History S/P cholecystectomy H/O tubal ligation Family History Other No pertinent family history Social History Preferred Language: Bangladeshi Communication Ability: Effective Visual Impairment: No Limitations Hearing Ability: Normal Beliefs That Will Affect Care: None Current Living Situation: Spouse Other Information That Helps Us Care for You: No Feels Safe at Home: Yes Safety Concerns: Feels Safe At This Time Smoking Status: Never smoker Hx Alcohol Use: No Hx Substance Use: No Review of Systems Review of Systems: All systems reviewed & are unremarkable except as noted in HPI & below Physical Exam Constitutional: WD/WN, vitals as above Eyes: PERRL, conjunctivae normal, anicteric sclerae ENMT: external ear and nose normal, oropharynx normal Neck: normal visual inspection and trachea midline Respiratory: normal respiratory effort, lungs clear to auscultation Cardiovascular: Rate/Rhythm: regular rate and regular rhythm Gastrointestinal (Abdomen): Inspection/Auscultation: abdomen normal to inspection decreased bs, soft, no guarding nor rebound Skin: normal turgor Neurologic: PERRL, EOMI, accommodation nl, no face palsy, no dysarthria Psychiatric: A+Ox3, euthymic affect Results & Data Vital Signs (Past 12 Hours) Vital Signs Temp Pulse Pulse Resp BP BP Pulse Ox 06/25/18 15:43 152/80 H 06/25/18 15:12 36.7 C 83 18 160/78 H 98 06/25/18 11:39 37.0 C 93 H 18 148/76 H 96 06/25/18 07:20 37.0 C 87 17 138/76 94
[2018-06-26] MEDS: SODIUM CHLORIDE 0.9% 1000ML 1,000 ML IV SCH (05:35)
[2018-06-26 06:33] LABS: Basophils # (auto) 0.02 K/uL (0-0.2); Basophils % (auto) 0.2 %; Eosinophils # (auto) 0.02 K/uL (0-0.5); Eosinophils % (auto) 0.2 %; Hematocrit (blood only) 37.1 % (37-47); Hemoglobin 12.6 g/dL (12.0-16.0); Immature Granulocytes # (auto) 0.01 K/uL (0.00-0.02); Immature Granulocytes % (auto) 0.1 %; Lymphocytes # (auto) 1.52 K/uL (1.2-3.4); Lymphocytes % (auto) 18.5 %; Mean Corpuscular Volume 94.9 fL (80-100); Mean Platelet Volume 9.8 fL (7.4-10.4); Monocytes # (auto) 0.76 K/uL (0.11-0.59); Monocytes % (auto) 9.3 %; Neutrophils # (auto) 5.87 K/uL (1.4-6.5); Neutrophils % (auto) 71.7 %; Platelet Count 242 K/uL (130-400); RDW Coefficient of Variation 13.1 % (11.5-14.5); RDW Standard Deviation 44.8 fL (36.4-46.3); Red Blood Count 3.91 M/uL (4.2-5.4)
[2018-06-26 06:43] LABS: Partial Thromboplastin Time 26.1 Seconds (21.0-31.0); Prothrombin Time 10.7 Seconds (9.0-12.0)
[2018-06-26 07:04] LABS: Albumin Globulin Ratio 0.9 (0.9-2); Albumin Level 3.5 gm/dl (3.4-5.0); BUN Creatinine Ratio 18.4 (10-20); Bilirubin,Total 0.6 mg/dl (0.2-1); Calcium 8.7 mg/dl (8.5-10.1); Creatinine Clr Calc Pharmacy 50.3 ml/min; Est GFR (African American) 62.5; Est GFR (Non-African American) 53.9; Globulin 3.7 gm/dl (2.5-4.0); Potassium 3.2 mmol/L (3.5-5.1); Total Protein 7.2 gm/dl (6.4-8.2)
[2018-06-26] MEDS ORDERED: POLYETHYLENE (MIRALAX) 17 GM PACK PO SCH (07:15)
[2018-06-26] MEDS ORDERED: POLYETHYLENE (MIRALAX) 17 GM PACK PO ONE (07:15)
[2018-06-26] MEDS ORDERED: POTASSIUM CHLORIDE PWD 20 MEQ PACK PO STA (07:40)
[2018-06-26] MEDS: LISINOPRIL 10 MG TAB PO SCH (08:07)
[2018-06-26] MEDS: GABAPENTIN 300 MG CAP PO SCH ×2 (08:07→21:40)
[2018-06-26] MEDS ORDERED: POTASSIUM CHLORIDE 40 MEQ in SODIUM CHLORIDE 0.9% 1000ML 1,000 ML IV SCH (08:15)
[2018-06-26] MEDS ORDERED: POLYETHYLENE GLYCOL 3350 238 GM BTL PO SCH ×2 (10:00→16:00)
--- NOTE | 2018-06-26 14:12 | Anesthesiology Consultation ---
Date of Service June 26, 2018 Assessment & Plan (1) Encounter for pre-operative examination: Chart Review Chart Review: Acceptable Risk for Surgery and Patient NOT seen in Pre Admission Testing Consults Requested none ASA ASA3 Proposed Anesthesia Anesthesia Type: MAC Risk / Benefits Reviewed With: PT / POA / Parent / Guardian, Accepts Plan and Informed Consent Obtained History Surgery Operation Date: 06/26/18 10:15 Proposed Procedures p Colonoscopy Dr Dorothy De La Cruz Height/Weight Height: 5 ft 1 in Weight: 91.9 kg Allergies Allergy/AdvReac Type Severity Reaction Status Date / Time celecoxib Allergy Unknown PT UNSURE Verified 06/24/18 16:03 Medications Home Medications Medication Instructions Recorded Confirmed Last Taken cholecalciferol (vitamin D3) 1,000 unit PO DAILY 10/18/17 06/24/18 06/24/18 [Vitamin D3] febuxostat 80 mg PO DAILY 10/18/17 06/24/18 06/24/18 hydrochlorothiazide 25 mg PO DAILY 10/18/17 06/24/18 06/24/18 lisinopril 10 mg PO DAILY 10/18/17 06/24/18 06/24/18 multivitamin 1 tab PO DAILY 10/18/17 06/24/18 06/24/18 apixaban [Eliquis] 2.5 mg PO BID 06/24/18 06/24/18 06/24/18 gabapentin 300 mg PO BID 06/24/18 06/24/18 06/24/18 tramadol 100 mg PO QID 06/24/18 06/24/18 06/24/18 Active Medications Generic Name Dose Route Start Last Admin Trade Name Freq PRN Reason Stop Dose Admin Acetaminophen 650 mg 06/24/18 21:27 06/25/18 00:48 Tylenol PO 07/24/18 21:26 650 mg Q4H PRN Administration pain/fever Gabapentin 300 mg 06/24/18 21:27 06/26/18 08:07 Neurontin PO 07/24/18 21:26 300 mg BID SHALONDA Administration Potassium Chloride 40 meq/ 1,020 mls @ 80 mls/hr 06/26/18 08:15 06/26/18 08:26 Sodium Chloride IV 06/26/18 20:59 80 mls/hr .[id number] SHALONDA Administration Ioversol 94 ml 06/24/18 17:06 06/24/18 17:06 Optiray 320 100ml IV 06/28/18 17:05 94 ml ONCE PRN Administration Interaction Checking Lisinopril 10 mg 06/25/18 09:00 06/26/18 08:07 Zestril PO 07/25/18 08:59 10 mg DAILY SHALONDA Administration Morphine Sulfate 2 mg 06/24/18 21:27 06/25/18 00:05 Morphine Sulfate IV 07/08/18 21:26 2 mg Q3H PRN Administration Pain Past Medical History Medical History Hypertension (Chronic) CKD (chronic kidney disease) stage 3, GFR 30-59 ml/min (Chronic) Factor 5 Leiden mutation, heterozygous (Chronic) Colon obstruction (Acute) Vasovagal response Dizziness Neuropathy No pertinent family history Exercise / Class Metabolic Activity III < 4 Walking/Shop/Light housework Past Family History Family History Other No pertinent family history Past Surgical History Surgical History S/P cholecystectomy H/O tubal ligation History of PONV No Hx of PONV and No Hx of Motion Sickness Social History Smoking Status: Never smoker Hx Alcohol Use: No Hx Substance Use: No Physical Exam Vital Signs Last Vital Signs Temp 36.1 C L 06/26/18 14:49 Pulse 81 06/26/18 14:49 Resp 20 06/26/18 14:49 BP 165/61 H 06/26/18 14:49 Pulse Ox 95 06/26/18 14:49 Testing Laboratory Results 06/26/18 06:09 06/26/18 06:09 06/26/18 06:09 PT 10.7 INR 1.0 APTT 26.1 Electrocardiogram Date: 10/16/17 Findings: + NSR @ (71 bpm) Echocardiogram Date: 02/21/12 EF: 65-70% LV Function: normal RWMA: + none
[2018-06-26] MEDS ORDERED: LIDOCAINE HCL 2% 2 ML VIAL/AMP(20MG/ML) INFIL ONE (14:56)
[2018-06-26] MEDS ORDERED: PROPOFOL IV EMULSION 10 MG/ML 20 ML VIAL IV ONE ×2 (14:56→15:55)
--- NOTE | 2018-06-26 16:01 | GI REPORT ---
Patient Name: Angela Melo Procedure Date: 06/26/2018 3:31 PM Date of : 1945 Admit Type: Inpatient Age: 72 Gender: Female Attending MD: Stewart De La Cruz MD Procedure: Colonoscopy Providers: Stewart De La Cruz MD Referring MD: Chandler Melo Md Indications: Abnormal CT of the GI tract Medicines: Propofol total dose 260 mg IV, Lidocaine 40 mg IV Complications: No immediate complications. Estimated Blood Loss: Estimated blood loss was minimal. Procedure: Pre-Anesthesia Assessment: - Prior to the procedure, a History and Physical was performed, and patient medications, allergies and sensitivities were reviewed. The patient's tolerance of previous anesthesia was reviewed. - The risks and benefits of the procedure and the sedation options and risks were discussed with the patient. All questions were answered and informed consent was obtained. After I obtained informed consent, the scope was passed under direct vision. Throughout the procedure, the patient's blood pressure, pulse, and oxygen saturations were monitored continuously. The Colonoscope was introduced through the anus and advanced to the splenic flexure. The colonoscopy was performed without difficulty. The patient tolerated the procedure well. The quality of the bowel preparation was good. Findings: An infiltrative partially obstructing large mass was found at the splenic flexure. The mass was circumferential. No bleeding was present. Biopsies were taken with a cold forceps for histology. Estimated blood loss was minimal. Multiple diverticula were found in the sigmoid colon. Non-bleeding internal hemorrhoids were found during endoscopy. The hemorrhoids were moderate. 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 Biopsied. - Diverticulosis in the sigmoid colon. - Non-bleeding internal hemorrhoids. Recommendation: - Return patient to [facility] for [facility] care. - Await pathology results. - Check CEA today. Stewart De La Cruz M.D. Stewart De La Cruz MD 06/26/2018 4:01:06 PM This report has been signed electronically. Note Initiated On: 06/26/2018 3:31 PM Number of Addenda: 0 I attest to the content of the Intraoperative Record and orders documented therein, exceptions below {[id number]}
--- NOTE | 2018-06-26 16:10 | History & Physical Report ---
Date of Service June 26, 2018 History of Present Illness Chief Complaint: Abnl CT Primary Care Provider: Eliel Sykes MD For colonoscopy Allergies Allergy/AdvReac Type Severity Reaction Status Date / Time celecoxib Allergy Unknown PT UNSURE Verified 06/24/18 16:03 Home Medications Home Medications Medication Instructions Recorded Confirmed Type cholecalciferol (vitamin D3) 1,000 unit PO DAILY 10/18/17 06/24/18 History [Vitamin D3] febuxostat 80 mg PO DAILY 10/18/17 06/24/18 History hydrochlorothiazide 25 mg PO DAILY 10/18/17 06/24/18 History lisinopril 10 mg PO DAILY 10/18/17 06/24/18 History multivitamin 1 tab PO DAILY 10/18/17 06/24/18 History apixaban [Eliquis] 2.5 mg PO BID 06/24/18 06/24/18 History gabapentin 300 mg PO BID 06/24/18 06/24/18 History tramadol 100 mg PO QID 06/24/18 06/24/18 History Past Med/Surg History Medical History Hypertension (Chronic) CKD (chronic kidney disease) stage 3, GFR 30-59 ml/min (Chronic) Factor 5 Leiden mutation, heterozygous (Chronic) Colon obstruction (Acute) Vasovagal response Dizziness Neuropathy No pertinent family history Surgical History S/P cholecystectomy H/O tubal ligation Family History Other No pertinent family history Social History Preferred Language: Jamaican Communication Ability: Effective Visual Impairment: No Limitations Hearing Ability: Normal Beliefs That Will Affect Care: None Current Living Situation: Spouse Other Information That Helps Us Care for You: No Feels Safe at Home: Yes Safety Concerns: Feels Safe At This Time Smoking Status: Never smoker Hx Alcohol Use: No Hx Substance Use: No Physical Exam Vital Signs (Past 24 Hours): Last Vital Signs Temp 36.1 C L 06/26/18 14:49 Pulse 81 06/26/18 14:49 Resp 20 06/26/18 14:49 BP 165/61 H 06/26/18 14:49 Pulse Ox 95 06/26/18 14:49 Constitutional: + obese Respiratory: normal respiratory effort Cardiovascular: Rate/Rhythm: regular rate and regular rhythm Gastrointestinal (Abdomen): Percussion/Palpation: abdomen soft umbilical hernia
--- NOTE | 2018-06-26 16:41 | Anesthesiology Progress Note ---
Date of Service June 26, 2018 Anesthesia Post Procedure Vital Signs Vital Signs: Temp Pulse Resp BP Pulse Ox 06/26/18 16:29 76 18 150/75 H 99 06/26/18 16:13 75 18 140/71 99 06/26/18 15:58 80 18 170/89 H 97 06/26/18 14:49 36.1 C L 81 20 165/61 H 95 06/26/18 07:12 36.7 C 79 18 137/72 95 06/25/18 22:58 36.8 C 82 16 143/73 H 94 Pain Intensity Abdomen: Pain Intensity: 2 Transfer of Care Handoff Completed per policy Notes Mental Status: alert / awake / arousable and participated in evaluation Patient Amnestic to Procedure: Yes Nausea / Vomiting: adequately controlled Pain: adequately controlled Airway Patency, RR, SpO2: stable & adequate BP & HR: stable & adequate Hydration State: stable & adequate Anesthetic Complications: no major complications apparent and Pt Satisfied with anesthetic care
--- NOTE | 2018-06-26 17:05 | Progress Note ---
DATE: 06/26/2018 The patient underwent a colonoscopy today for an abnormal CAT scan and abdominal pain. The exam was carried to the splenic flexure where there was a circumferential near obstructing mass lesion that was biopsied. I was unable to advance the scope beyond it. She does have diverticulosis in the sigmoid and some moderate sized hemorrhoids as well. CEA level was also ordered. IMPRESSION: The patient has a constricting splenic flexure mass that will need to be surgically resected. I will defer this to the surgeons. I ordered a CEA level today. We will sign off unless there is any further gastrointestinal input needed.
[2018-06-26] MEDS: MoRPHine SULFATE 2 MG/ML CARP IV PRN (17:16)
[2018-06-26] MEDS ORDERED: HEPARIN SOD 5,000 UNIT/0.5 ML VIAL SQ STA (18:16)
--- NOTE | 2018-06-26 18:16 | Hospitalist Progress Note ---
Date of Service June 26, 2018 Assessment & Plan (1) Colon obstruction: Colonoscopy on 06/26 showed obstruction at the splenic flexure that could not be traversed by the scope. Concern for colon CA. - Discussed with GI and surgery today - Likely resection needed - Continue clears tonight; NPO @ midnight - Holding Eliquis (2) Factor 5 Leiden mutation, heterozygous: History of recurrent left lower extremity DVT. - Holding Eliquis until procedures are done (3) Hypertension: BP presently 140/65 to 150/75. - Continue lisinopril - Hold hydrochlorothiazide - Monitor BP (4) CKD (chronic kidney disease) stage 3, GFR 30-59 ml/min: Baseline Cr ~1.5; eGFR 40. - On admission, Cr was at baseline. - On 06/26, Cr was 1.0. (5) DVT prophylaxis: SCDs until after procedure - She is a high thrombotic risk given her age, Factor V, and likely cancer, so will benefit from Lovenox as soon as cleared by surgery. If no procedure t omorrow, will give single dose of Lovenox in the AM. Subjective Passing clear liquid stools. Plan for colo today. No abdominal pain, no nausea, no vomiting. Review of Systems Review of Systems: All systems reviewed & are unremarkable except as noted in HPI & below Physical Exam Constitutional: WD/WN, vitals as above Eyes: EOM intact bilaterally; no conjunctival abnormality ENMT: external ear and nose normal, oropharynx normal Neck: trachea midline, no thyromegaly normal visual inspection Respiratory: normal respiratory effort, lungs clear to auscultation no respiratory distress Cardiovascular: RRR, no murmur, no edema Gastrointestinal (Abdomen): Inspection/Auscultation: abdomen normal to inspection; abdomen not distended Musculoskeletal: no cyanosis or clubbing, extremities motor strength 5/5 Skin: no rashes, warm and dry Neurologic: moves all extremities and awake Psychiatric: Orientation: alert, oriented to person and cooperative Results & Data Vital Signs (Past 12 Hours) Vital Signs Temp Pulse Resp BP Pulse Ox 06/26/18 16:44 36.4 C L 87 18 139/66 95 06/26/18 16:29 76 18 150/75 H 99 06/26/18 16:13 75 18 140/71 99 06/26/18 15:58 80 18 170/89 H 97 06/26/18 14:49 36.1 C L 81 20 165/61 H 95 06/26/18 07:12 36.7 C 79 18 137/72 95
[2018-06-26] MEDS: TRAMADOL HCL 50 MG TABLET PO PRN (21:40)
[2018-06-27] MEDS: ACETAMINOPHEN 325 MG TAB PO PRN (03:12)
[2018-06-27 06:30] LABS: Basophils # (auto) 0.02 K/uL (0-0.2); Basophils % (auto) 0.3 %; Eosinophils # (auto) 0.03 K/uL (0-0.5); Eosinophils % (auto) 0.5 %; Hematocrit (blood only) 34.6 % (37-47); Hemoglobin 11.3 g/dL (12.0-16.0); Immature Granulocytes # (auto) 0.02 K/uL (0.00-0.02); Immature Granulocytes % (auto) 0.3 %; Lymphocytes # (auto) 1.49 K/uL (1.2-3.4); Lymphocytes % (auto) 23.5 %; Mean Corpuscular Hgb Conc 32.7 g/dL (32-36); Mean Corpuscular Volume 95.6 fL (80-100); Mean Platelet Volume 9.3 fL (7.4-10.4); Monocytes # (auto) 0.48 K/uL (0.11-0.59); Monocytes % (auto) 7.6 %; Neutrophils % (auto) 67.8 %; Platelet Count 204 K/uL (130-400); RDW Standard Deviation 45.2 fL (36.4-46.3); Red Blood Count 3.62 M/uL (4.2-5.4); White Blood Count 6.34 K/uL (4.8-10.8)
[2018-06-27 07:01] LABS: Est GFR (Non-African American) 55.2; Potassium 3.6 mmol/L (3.5-5.1)
[2018-06-27 07:02] LABS: Albumin Level 3.3 gm/dl (3.4-5.0); BUN Creatinine Ratio 19.6 (10-20); Calcium 8.9 mg/dl (8.5-10.1); Creatinine Clr Calc Pharmacy 51.2 ml/min
[2018-06-27 07:04] LABS: Bilirubin,Total 0.7 mg/dl (0.2-1); Globulin 3.4 gm/dl (2.5-4.0); Total Protein 6.7 gm/dl (6.4-8.2)
[2018-06-27] MEDS: LISINOPRIL 10 MG TAB PO SCH (07:43)
[2018-06-27] MEDS: GABAPENTIN 300 MG CAP PO SCH (07:43)
[2018-06-27] MEDS: TRAMADOL HCL 50 MG TABLET PO PRN (07:48)
--- NOTE | 2018-06-27 10:06 | Surgery Progress Note ---
Date of Service June 27, 2018 Assessment & Plan (1) Abdominal pain: partially obstructing mass of splenic flexure biopsy results pending will plan for resection next week ? Saturday can stay on full liquids, will discuss anticoagulation with primary Subjective colonoscopy noted, had BM this AM, no pain or distention Physical Exam Gastrointestinal (Abdomen): Inspection/Auscultation: abdomen not distended Percussion/Palpation: abdomen soft; abdomen nontender Results & Data Vital Signs (Past 12 Hours) Vital Signs Temp Pulse Pulse Resp BP Pulse Ox 06/27/18 07:34 36.6 C 72 18 146/75 H 97 06/26/18 23:12 36.6 C 77 16 147/78 H 96 (1) Abdominal pain Abdominal location: generalized Qualified Code(s): R10.84 - Generalized abdominal pain
--- NOTE | 2018-06-27 10:44 | XRay Report ---
XR chest 2V routine CLINICAL HISTORY: colon mass COMPARISON STUDY: 09/16/2016 FINDINGS: The heart is mildly enlarged. There is no failure. There is no focal pulmonary consolidatio n. There are no pleural effusions. There are multiple old right-sided rib fractures. Degenerative ivan nges are present within the dorsal spine.[ IMPRESSION: Mild cardiomegaly. No acute findings. Electronically signed by: Nick Wyman M.D. 06/27/2018 10:43 AM
--- NOTE | 2018-06-27 13:02 | Anesthesiology Consultation ---
Date of Service June 27, 2018 Assessment & Plan (1) Encounter for pre-operative examination: Patient is currently still admitted but, per booking sheet, plan is for patient to be discharged and return to hospital for outpatient surgery. Chart Review Chart Review: Acceptable Risk for Surgery and Patient NOT seen in Pre Admission Testing History Surgery Operation Date: 06/26/18 10:15 Proposed Procedures p Colonoscopy Dr Dorothy De La Cruz Height/Weight Height: 5 ft 1 in Weight: 91.9 kg Allergies Allergy/AdvReac Type Severity Reaction Status Date / Time celecoxib Allergy Unknown PT UNSURE Verified 06/24/18 16:03 Medications Home Medications Medication Instructions Recorded Confirmed Last Taken cholecalciferol (vitamin D3) 1,000 unit PO DAILY 10/18/17 06/24/18 06/24/18 [Vitamin D3] febuxostat 80 mg PO DAILY 10/18/17 06/24/18 06/24/18 hydrochlorothiazide 25 mg PO DAILY 10/18/17 06/24/18 06/24/18 lisinopril 10 mg PO DAILY 10/18/17 06/24/18 06/24/18 multivitamin 1 tab PO DAILY 10/18/17 06/24/18 06/24/18 apixaban [Eliquis] 2.5 mg PO BID 06/24/18 06/24/18 06/24/18 gabapentin 300 mg PO BID 06/24/18 06/24/18 06/24/18 tramadol 100 mg PO QID 06/24/18 06/24/18 06/24/18 Active Medications Generic Name Dose Route Start Last Admin Trade Name Freq PRN Reason Stop Dose Admin Acetaminophen 650 mg 06/24/18 21:27 06/27/18 03:12 Tylenol PO 07/24/18 21:26 650 mg Q4H PRN Administration pain/fever Gabapentin 300 mg 06/24/18 21:27 06/27/18 07:43 Neurontin PO 07/24/18 21:26 300 mg BID SHALONDA Administration Ioversol 94 ml 06/24/18 17:06 06/24/18 17:06 Optiray 320 100ml IV 06/28/18 17:05 94 ml ONCE PRN Administration Interaction Checking Lisinopril 10 mg 06/25/18 09:00 06/27/18 07:43 Zestril PO 07/25/18 08:59 10 mg DAILY SHALONDA Administration Morphine Sulfate 2 mg 06/24/18 21:27 06/26/18 17:16 Morphine Sulfate IV 07/08/18 21:26 2 mg Q3H PRN Administration Pain Tramadol HCl 100 mg 06/26/18 19:25 06/27/18 07:48 Ultram PO 07/26/18 19:24 100 mg Q8H PRN Administration Pain Past Medical History Medical History Hypertension (Chronic) CKD (chronic kidney disease) stage 3, GFR 30-59 ml/min (Chronic) Factor 5 Leiden mutation, heterozygous (Chronic) On Eliquis for h/o DVT --CURRENTLY ON HOLD UNTIL PROCEDURES ARE DONE. Colon obstruction (Acute) At splenic flexure. Biopsy pending, felt likely cancerous. Neuropathy History of DVT (deep vein thrombosis) On Eliquis. Obesity Past Family History Family History Other No pertinent family history Past Surgical History Surgical History S/P cholecystectomy H/O tubal ligation H/O colonoscopy 06/26/18 [facility] Social History Smoking Status: Never smoker Hx Alcohol Use: No Hx Substance Use: No Physical Exam Vital Signs Last Vital Signs Temp 36.6 C 06/27/18 12:58 Pulse 72 06/27/18 12:58 Resp 18 06/27/18 12:58 BP 152/80 H 06/27/18 12:58 Pulse Ox 97 06/27/18 12:58 Testing Electrocardiogram Date: 10/16/17 Findings: + NSR @ (71) Chest X-Ray Date: 06/27/18 Findings: + NAD Mild cardiomegaly. Echocardiogram Date: 02/21/12 The left ventricle is normal in size. There is normal left ventricular wall thickness. Left ventricular systolic function is normal. Ejection Fraction = 65- 70%. The transmitral spectral Doppler flow pattern is suggestive of pseudonormalization. No regional wall motion abnormalities noted. Bubble study done and no clear evidence of interatrial shunt.
--- NOTE | 2018-06-27 18:00 | Discharge Summary ---
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 Discharge Exam Constitutional WD/WN, vitals as above Eyes EOM intact bilaterally; no conjunctival abnormality ENMT external ear and nose normal, oropharynx normal Neck trachea midline, no thyromegaly normal visual inspection Respiratory normal respiratory effort, lungs clear to auscultation no respiratory distress Cardiovascular RRR, no murmur, no edema Gastrointestinal (Abdomen) Inspection/Auscultation: abdomen normal to inspection; abdomen not distended Musculoskeletal no cyanosis or clubbing, extremities motor strength 5/5 Skin no rashes, warm and dry Neurologic moves all extremities and awake Psychiatric Orientation: alert, oriented to person and cooperative Discharge Data Allergies Allergy/AdvReac Type Severity Reaction Status Date / Time celecoxib Allergy Unknown PT UNSURE Verified 06/24/18 16:03 Consultations 06/24/18 18:03 ED Decision to Admit Stat 06/24/18 21:27 Consult Gastroenterology Routine Consult General Surgery Routine Procedures Performed Operation Date: 06/26/18 10:15 Actual Procedures p Colonoscopy Biopsy Cytology(Left) - Stewart De La Cruz Ordered Studies 06/24/18 16:18 CT abd pelvis IV con only Stat Hospital Course (1) Colon obstruction: Colonoscopy on 06/26 showed obstruction at the splenic flexure that could not be traversed by the scope. - Pathology came back on 06/27 for adenocarcinoma. Patient was not informed as she had left before it came back! - Plan to follow up with surgery on Saturday for hemicolectomy. (2) Factor 5 Leiden mutation, heterozygous: History of recurrent left lower extremity DVT. - Held Eliquis - Restarted on discharge. Will need to discuss with surgery when to stop for surgery. (3) Hypertension: BP presently 140/65 to 150/75. - Continue lisinopril - Held hydrochlorothiazide during NPO; restarted on discharge. (4) CKD (chronic kidney disease) stage 3, GFR 30-59 ml/min: Baseline Cr ~1.5; eGFR 40. - On admission, Cr was at baseline. - On 06/26, Cr was 1.0. (5) DVT prophylaxis: SCDs until after procedure - Restarted on apixiban on discharge. Total Time Total Time Spent Total Time Spent (In Minutes): 35 Total Time Includes: Examination of the Patient, Discharge Planning, Medication Reconciliation and Communication With Other Providers Discharge Plan Discharge Items Patient Disposition: Home - Self-Care Reason For Visit: COLON OBSTRUCTION Discharge Diagnosis: Colon obstruction Discharge Goals: Decrease discomfort and Diagnostic testing Activity: Resume your previous activity Non-emergency contact: Primary Care Provider and Surgeon Call non-emergency contact if: your symptoms worsen, your pain is not controlled and your temperature is above 100.5 Follow-up/Referrals: Eliel Sykes III, MD [Primary Care Provider] - Kirill Ridley MD [Surgeon] - 06/30/18 9:10 am (You have an appt on Friday 06/30 at 9:[address] Ridley.) Diet: Full liquid Addtl Provider Instructions: Please only drink liquids until your surgery. If it can dissolve, melt, or take the shape of the bowl/cup, it is safe to consume. Please return to the Hospital with any worsening abdominal pain, nausea, vomiting, or other concerning symptoms. Prescriptions: Continued multivitamin Tablet 1 tab PO DAILY RF: 0 lisinopril 10 mg Tablet 10 mg PO DAILY RF: 0 hydrochlorothiazide 25 mg Tablet 25 mg PO DAILY RF: 0 cholecalciferol (vitamin D3) [Vitamin D3] 1,000 unit Tablet 1,000 unit PO DAILY RF: 0 febuxostat 80 mg Tablet 80 mg PO DAILY RF: 0 tramadol 50 mg tablet 100 mg PO QID RF: 0 gabapentin 300 mg capsule 300 mg PO BID RF: 0 Eliquis 2.5 mg tablet 2.5 mg PO BID RF: 0 Stand-Alone Forms: Call Back Authorization, [facility], Opioid Gerson Alvarez/Other Patient Handouts: Colonoscopy Discharge Orders: Discharge Order (Routine); Ordered 06/27/18 Ordered By: Chandler Melo Admission Data Admit Date/Time: 06/24/18 19:13 Attending Provider: Chandler Melo Admit Provider: Edgardo Shah Primary Care Provider: Eliel Sykes III Other Providers: Chandler Melo ; Edgardo Shah ; Nahun Salguero ; Stewart De La Cruz ; Maribel Sifuentes ; Avi Anthony ; Edgardo Workman Service: Medical Other Interventions: Discharge Summary Assessment (RN) Last Done: 06/27/18 12:58 DC Date/Time DO NOT enter until pt leaves facility: 06/27/18 14:12
== END 2018-06-27 14:12 | disposition home or self-care (01) | DRG 375 ==
LOC: ED 15:14 → 3N 19:13 → SUATTDRO 19:13 → 3N 21:05

== ENCOUNTER 2018-07-01 07:29 | Inpatient (IN) ==
--- NOTE | 2018-06-27 14:49 | Anesthesiology Consultation ---
Date of Service June 27, 2018 Assessment & Plan (1) Encounter for pre-operative examination: Chart Review Chart Review: Acceptable Risk for Surgery and Patient NOT seen in Pre Admission Testing History Surgery Operation Date: 07/01/18 09:20 Proposed Procedures p Open Colon Resection - Kirill Ridley MD Height/Weight Height: 5 ft 1 in Weight: 91.9 kg Allergies Allergy/AdvReac Type Severity Reaction Status Date / Time celecoxib Allergy Unknown PT UNSURE Verified 06/24/18 16:03 Medications Home Medications Medication Instructions Recorded Confirmed Last Taken cholecalciferol (vitamin D3) 1,000 unit PO DAILY 10/18/17 06/24/18 06/24/18 [Vitamin D3] febuxostat 80 mg PO DAILY 10/18/17 06/24/18 06/24/18 hydrochlorothiazide 25 mg PO DAILY 10/18/17 06/24/18 06/24/18 lisinopril 10 mg PO DAILY 10/18/17 06/24/18 06/24/18 multivitamin 1 tab PO DAILY 10/18/17 06/24/18 06/24/18 Eliquis 2.5 mg PO BID 06/24/18 06/24/18 06/24/18 gabapentin 300 mg PO BID 06/24/18 06/24/18 06/24/18 tramadol 100 mg PO QID 06/24/18 06/24/18 06/24/18 Past Medical History Medical History Hypertension (Chronic) CKD (chronic kidney disease) stage 3, GFR 30-59 ml/min (Chronic) Factor 5 Leiden mutation, heterozygous (Chronic) On Eliquis for h/o DVT --CURRENTLY ON HOLD UNTIL PROCEDURES ARE DONE. Colon obstruction (Acute) At splenic flexure. Biopsy pending, felt likely cancerous. Neuropathy History of DVT (deep vein thrombosis) On Eliquis. Obesity Past Family History Family History Other No pertinent family history Past Surgical History Surgical History S/P cholecystectomy H/O tubal ligation H/O colonoscopy 06/26/18 [facility] Social History Smoking Status: Never smoker Hx Alcohol Use: No Hx Substance Use: No Testing Laboratory Results 06/27/18 WBC: 6.23 H/H: 11.3/34.6 PLATELETS: 204 SODIUM: 143 POTASSIUM: 3.6 CHLORIDE: 114 CO2: 20 BUN: 20 CREATININE: 1.01 GLUCOSE: 76 Electrocardiogram Date: 10/16/17 Findings: + NSR @ (71) Chest X-Ray Date: 06/27/18 Findings: + NAD and + cardiomegaly Echocardiogram Date: 02/21/12 The left ventricle is normal in size. There is normal left ventricular wall thickness. Left ventricular systolic function is normal. Ejection Fraction = 65- 70%. The transmitral spectral Doppler flow pattern is suggestive of pseudonormalization. No regional wall motion abnormalities noted. Bubble study done and no clear evidence of interatrial shunt.
[~2018-07-01 07:29] MED LIST changes: -CHOL100027 PO; -FEBU80TA PO; -GABA100C13 PO; -HYDR25TA4 PO; -LISI-461 PO; +LR 15ML/HR IV SCH; -MULTTAB58 PO; -TRAM-10 PO; -WARF5TAB7 PO
[2018-07-01] MEDS ORDERED: DEXAMETHASONE SOD INJ 4 MG/ML VIAL IV PRN (08:28)
[2018-07-01] MEDS ORDERED: ePHEDrine sulfate 50 MG/ML AMP IV PRN (08:28)
[2018-07-01] MEDS ORDERED: HYDROmorphone INJ 2 MG/ML SYR/VIAL IV PRN (08:28)
[2018-07-01] MEDS ORDERED: ONDANSETRON INJ 2 MG/ML 2 ML VIAL IV PRN ×2 (08:28→12:59)
[2018-07-01] MEDS ORDERED: ATROPINE SULFATE 0.1 MG/ML 10ML SYR IV PRN (08:28)
--- NOTE | 2018-07-01 08:46 | History & Physical Bridge Note ---
Date of Service July 01, 2018 History & Physical Bridge Note I have examined the patient, reviewed the History & Physical and in the interval since the performance of the History & Physical I have noted the following changes of clinical significance: no changes noted wants fan in room all questions answered family at bedside
[2018-07-01] MEDS ORDERED: LIDOCAINE HCL 2% 2 ML VIAL/AMP(20MG/ML) INFIL ONE (08:48)
[2018-07-01] MEDS ORDERED: ROCURONIUM BROMIDE 10 MG/ML 5 ML VIAL ONE ×3 (08:48→10:57)
[2018-07-01] MEDS ORDERED: PROPOFOL IV EMULSION 10 MG/ML 20 ML VIAL IV ONE (08:48)
[2018-07-01] MEDS ORDERED: fentaNYL citrate 100 MCG/2 ML VIAL ONE ×2 (08:49→10:24)
[2018-07-01] MEDS ORDERED: BUPIVACAINE 0.5 % 5 MG/1 ML MPF 30ML VIAL ONE (08:52)
[2018-07-01] MEDS ORDERED: BACITRACIN INJ 50,000 UNIT VIAL ONE (08:52)
[2018-07-01] MEDS ORDERED: ePHEDrine sulfate 50 MG/ML SYR ONE (09:39)
[2018-07-01] MEDS ORDERED: MoRPHine SULFATE PF 1 MG/ML 10 ML AMP/VIAL ONE (11:01)
[2018-07-01] MEDS ORDERED: cefOXitin 2,000 MG in DEXTROSE 5% 50 ML IV STA (11:03)
--- NOTE | 2018-07-01 11:29 | Post Operative Brief Note ---
Immediate Post Op Note v1 Date of Surgery July 01, 2018 Pre & Post Diagnosis Operation Date: 07/01/18 09:20 Pre-Op Diagnosis: Obstructing Mass Splenic Flexure/Colon, Incisional Post-Op Diagnosis: Obstructing Mass Splenic Flexure/Colon, Incisional Procedure Operation Date: 07/01/18 09:20 Actual Procedures p Laparoscopic-Assisted Colon Resection, - Kirill Ridley MD s Laparoscopic Repair of Incisional Hernia(Not Applicable) - Kirill Ridley MD Surgeon Kirill Ridley MD French Folding Machine Operator B Santos ALBA Estimated Blood Loss 100 Findings Consistent with Post-Op Diagnosis Drains Maya Catheter and [place] Drain
[2018-07-01] MEDS: fentaNYL citrate 100 MCG/2 ML VIAL IV PRN ×6 (11:51→12:16)
--- NOTE | 2018-07-01 11:51 | Operative Report ---
Post Operative Report Pre & Post Diagnosis Operation Date: 07/01/18 09:20 Pre-Op Diagnosis: Obstructing Mass Splenic Flexure/Colon, Incisional Post-Op Diagnosis: Obstructing Mass Splenic Flexure/Colon, Incisional Procedure Operation Date: 07/01/18 09:20 Actual Procedures p Laparoscopic-Assisted Colon Resection, - Kirill Ridley MD s Laparoscopic Repair of Incisional Hernia(Not Applicable) - Kirill Ridley MD The patient was brought into the operating theater general endotracheal anesthesia Maya catheter was inserted the abdomen prepped with Betadine solution properly draped systemic antibiotics given a timeout was had patient identified this point we made a small incision away from the incarcerated incisional hernia around the umbilical area cephalad the midline Veress needle followed followed by CO2 followed by 5 mm trocar point of entry inspected no injury identified we looked at the liver is grossly normal no abdominal seating we could identify the descending colon easily there is no evidence of any obstruction or gross annular lesion the area by colonoscopy showed it to be around the splenic flexure therefore I placed a 5 mm left lower quadrant trocar site with preemptive local analgesic rotating the patient to the right and follow the colon up dividing the white line of Toldt with another 5 mm trocar and mobilized towards the splenic flexure was still cannot identified any obvious annular lesion the patient was not tattooed at this point we stayed away from the spleen and mobilized more to call in the midline and approach was also from the transverse colon in that fashion freeing it from the omentum then we get an area proximal to the splenic flexure of the was pretty much involved in some omental tissue and felt may be that was the area but this was sufficient enough that we would probably be able to palpate it easily. At this point I removed the laparoscope made an incision above the umbilicus away from the incision the incisional hernia toward cephalad made an incision about 3 inches long deepened through subcutaneous tissue once in the abdomen I was able to palpate the colon starting at the transverse colon and actually we could feel that this area was proximal to the splenic flexure and the distal transverse using blunt dissection we were able to mobilize it pretty much almost out of the wound we divided the greater omentum down to the transverse colon reflection ligated with 2-0 silk there was omentum of the greater omentum strictly adherent to the area of the annular lesion therefore we took that along with the specimen once we freed this up I try to stay in the line of resection just to the left of the middle colic which was well away from the tumor underscore the mesentery all the way around divided the mesentery ligated with 2-0 silk sutures marking the apical resection of the mesentery and similarly in the descending colon we were able to mobilize it long-term down to the Khadar: Freed up into the wound closed the mesentery first after we had resected the colon right at the adjacent to the middle colic artery with a LUIS 80 similarly we divided the descending colon with a similar fashion to staple line were oversewn with 3-0 silk suture we then we brought the 2 together we could identify that the proximal end of the trend of our line of resection the colon appeared to be a little bit dusky therefore I took another 3 or 4 inch centimeters of colon using a LUIS stapler were the viability of the tissue was fairly normal we oversewed the staple line again did a [id number] anastomosis using 3-0 silk our layer 3-0 chromic in a layer anastomosis was checked for patency appear satisfactory. We closed the mesentery that there was no evidence of any open wound for herniation. The area was irrigated copiously we then enlarged the incision distally to reduce completely the incarcerated preperitoneal fat in the hernia area at this point we closed the midline incision with the fascia around the defect on the umbilical area with #1 PDS interrupted sutures with 1/4 inch Dorothy subcu tension skin edge with 3-0 silk suture josefina for skin edges dressing was applied procedure was tolerated well by the patient estimated blood loss 100 cc addendumB Santos ALBA was present throughout the procedure after retraction and exposure thank you Surgeon Kirill Ridley MD Safe Deposit Box Rental Clerk B Santos ALBA Estimated Blood Loss 100 Findings Consistent with Post-Op Diagnosis Specimens splenic flexure Description of Procedure merda I attest to the content of the Intraoperative Record and any orders documented therein. Any exceptions are noted below.
--- NOTE | 2018-07-01 12:51 | Anesthesiology Progress Note ---
Date of Service July 01, 2018 Anesthesia Post Procedure Vital Signs Vital Signs: Temp Pulse Resp BP Pulse Ox 07/01/18 12:35 73 17 160/73 H 99 07/01/18 12:25 36.3 C L 75 16 162/71 H 96 07/01/18 12:15 68 17 147/68 H 96 07/01/18 12:05 78 17 145/64 H 97 07/01/18 11:55 69 16 141/64 H 100 07/01/18 11:45 72 19 153/66 H 100 07/01/18 11:39 36.6 C 78 19 158/65 H 100 Pain Intensity Lower Back: Pain Intensity: 8 Abdomen: Pain Intensity: 5 Transfer of Care Handoff Completed per policy Notes Mental Status: alert / awake / arousable and participated in evaluation Patient Amnestic to Procedure: Yes Nausea / Vomiting: adequately controlled Pain: adequately controlled Airway Patency, RR, SpO2: stable & adequate BP & HR: stable & adequate Hydration State: stable & adequate Anesthetic Complications: no major complications apparent
[2018-07-01] MEDS ORDERED: NALOXONE HCL 0.4 MG/1 ML VIAL/CARP IV PRN (12:59)
[2018-07-01] MEDS ORDERED: ACETAMINOPHEN 1,000 MG/100 ML VIAL IV PRN (12:59)
[2018-07-01 13:43] LABS: Hematocrit (blood only) 33.6 % (37-47); Hemoglobin 11.8 g/dL (12.0-16.0); Mean Corpuscular Hgb Conc 35.1 g/dL (32-36); Mean Corpuscular Volume 93.9 fL (80-100); Mean Platelet Volume 9.6 fL (7.4-10.4); Platelet Count 196 K/uL (130-400); RDW Coefficient of Variation 13.3 % (11.5-14.5); RDW Standard Deviation 45.5 fL (36.4-46.3); Red Blood Count 3.58 M/uL (4.2-5.4); White Blood Count 8.38 K/uL (4.8-10.8)
[2018-07-01 13:57] LABS: INR 1.1 (0.9-1.1); Partial Thromboplastin Ratio 0.7; Partial Thromboplastin Time < 20.0 Seconds (21.0-31.0); Prothrombin Time 10.9 Seconds (9.0-12.0)
[2018-07-01] MEDS: MoRPHine SULFATE PCA 50 MG/50ML IV PRN (14:34)
[2018-07-01] MEDS: LACTATED RINGER'S 1,000 ML IV SCH ×2 (14:34→23:40)
[2018-07-01 15:46] LABS: Calcium 9.1 mg/dl (8.5-10.1); Creatinine Clr Calc Pharmacy 38.1 ml/min; Est GFR (African American) 45.8; Est GFR (Non-African American) 39.6; Potassium 3.5 mmol/L (3.5-5.1)
--- NOTE | 2018-07-01 15:48 | Hospitalist Consultation ---
Date of Consultation July 01, 2018 Assessment & Plan (1) Status post colon resection: - In setting of recently diagnosed colon adenocarcinoma; surgery was completed today. - Pain control per primary team - DVT ppx -- resume anticoagulation post op when possible in setting of Factor V Leiden. (2) Status post hernia repair: - Completed today, management per surgery service. (3) Neck pain on left side: - Developed left sided neck pain following surgery -- may be musculoskeletal vs. related to gas pain following laparoscopic procedure vs. cardiac related vs. other. - Is tender to palpation on exam -- ordered heat pad. - EKG was negative for acute changes; will trend Troponin x 3 to rule out cardiac source. - Consider further imaging, including CTA head/neck and imaging of cervical spine, if pain persists. (4) Adenocarcinoma of colon: - Recently diagnosed, status post colon resection as noted above. - Will need outpatient follow up to determine further treatment. (5) Factor V Leiden: - Previously on Eliquis 2.5 mg BID. - Consider transitioning to Lovenox subQ daily vs. Xarelto -- both meds are indicated in oncology patients. - Holding anticoagulation due to surgery completed today; will resume per surgery team. (6) HTN (hypertension): - Holding home HCTZ and Lisinopril. - Can resume if renal function is stable POD#1. - BP has been mildly elevated with SBP 140-160's post op -- Hydralazine 10 mg IV q6hr prn. (7) Neuropathy: - Does complain of lumbar spine pain with radiculopathy down right leg -- has been evaluated by outpatient providers. - Continue Gabapentin as prescribed. (8) Gout: - Holding home med, is non-formulary. (9) CKD (chronic kidney disease) stage 3, GFR 30-59 ml/min: - Renally dose all meds. - Monitor renal function closely. (10) Obesity: - BMI 36 -- encourage weight loss and exercise. (11) History of DVT (deep vein thrombosis): - Holding home Eliquis post op; resume anticoagulation per surgery team. Dispo: Will continue to follow, please call with any questions. Supervising Physician Co-Signing Physician Notes Attending Note & Attestation - Pt seen/examined, chart reviewed, care plan d/w ANJALI Irby. I agree w/ the acevedo components of her consultation note. 72yo female with recently diagnosed colon cancer who presented today for hemicolectomy and incisional hernia repair. Also with h/o HTN, Factor 5 Leiden Mutation, prior left leg DVT on chronic anticoagulation, and CKD stage 3. During my visit in the late afternoon she was sitting in the chair doing crosswords. She complained of mild abd pain but no chest pain, dyspnea, or neck pain. PMH, PSH, allergies, meds, sochx, famhx, ros - reviewed VSS, afebrile gen - obese, NAD mouth - MM slightly dry neck - no JVD heart - RRR, s1, s2, no murmur lungs - CTA b/l abd - decreased BS, mildly distended, dressings intact, mild tenderness over central abdomen, no HSM ext - mild left leg edema, <1+; right leg w/ trace edema; pulses 2+ b/l labs today - CBC acceptable; creatinine 1.3 A/P: 1. colon ca s/p hemicolectomy - defer management to surgery including diet, fluids, pain control, dispo. 2. CKD stage 3 - BMP am. 3. h/o factor 5 Leiden Mutation with prior DVT - resume anticoagulation as soon as ok with surgery; VTE risk is quite high given her prior history and her current colon cancer. Heparin SC has been ordered by surgery in meantime. Will increase this to q8h dosing. 4. HTN - controlled; agree w/ holding home meds to ensure stability of Cr in am. Thanks for consult; we will follow with you. Juanpablo Mccormick MD History of Present Illness Reason for Consultation: Medical Management Attending Physician: Kirill Ridley MD History of Present Illness Mrs. Melo is a 72 year old female with past medical history of HTN, CKD Stage III, Factor 5 Leiden, Neuropathy, H/o DVT, Obesity and recently diagnosed adenocarcinoma of the colon who presented for planned colon resection and hernia repair. Pt. has increased pain post op -- rates pain as a 10/10 on pain scale in her abdomen. She also has left sided neck pain -- states pain starts in the lower base of her neck and radiates up to occipital area. Is tender to palpation on exam. Denies chest pain, SOB, nausea/vomiting/diaphoresis. She has chronic lumbar pain with right leg radiculopathy in setting of osteoporosis, follows with outpatient provider for this issue. Chronic low back pain is not increased overall compared to baseline. Last bowel movement was yesterday for colon prep. Allergies Allergy/AdvReac Type Severity Reaction Status Date / Time celecoxib Allergy Severe FACIAL Verified 07/01/18 07:55 SWELLING, SOB, HIVES Home Medications Home Medications Medication Instructions Recorded Confirmed Type cholecalciferol (vitamin D3) 1,000 unit PO DAILY 10/18/17 07/01/18 History [Vitamin D3] febuxostat 80 mg PO QAM 10/18/17 07/01/18 History hydrochlorothiazide 25 mg PO QAM 10/18/17 07/01/18 History lisinopril 10 mg PO QAM 10/18/17 07/01/18 History multivitamin 1 tab PO DAILY 10/18/17 07/01/18 History Eliquis 2.5 mg PO BID 06/24/18 07/01/18 History gabapentin 300 mg PO BID 06/24/18 07/01/18 History tramadol 100 mg PO QID PRN 06/24/18 07/01/18 History diphenhydramine HCl [Benadryl] 25 mg PO HS PRN 06/30/18 07/01/18 History docusate sodium [Stool Softener] 100 mg PO DAILY PRN 06/30/18 07/01/18 History ranitidine HCl [Zantac] 150 mg PO HS PRN 06/30/18 07/01/18 History enoxaparin [Lovenox] 80 mg SUBCUT DAILY 07/01/18 07/01/18 History Patient History Medical History Hypertension (Chronic) CKD (chronic kidney disease) stage 3, GFR 30-59 ml/min (Chronic) Factor 5 Leiden mutation, heterozygous (Chronic) On Eliquis for h/o DVT --CURRENTLY ON HOLD UNTIL PROCEDURES ARE DONE. Colon obstruction (Acute) At splenic flexure. Biopsy pending, felt likely cancerous. Neuropathy BILATERAL LEGS History of tooth extraction (Acute) Adenocarcinoma of colon GERD (gastroesophageal reflux disease) OCCASIONAL. Gout History of DVT (deep vein thrombosis) On Eliquis. Obesity Osteoarthritis Surgical History S/P cholecystectomy H/O tubal ligation H/O colonoscopy 06/26/18 [facility] Family History Sister Family history of diabetes mellitus Mother Family history of diabetes mellitus Social History Preferred Language: Panamanian Communication Ability: Effective Visual Impairment: No Limitations Hearing Ability: Normal Jigsaw Operator Required: No Beliefs That Will Affect Care: None Current Living Situation: Spouse current occupational status: retired current occupation: Previous seamstress. Other Information That Helps Us Care for You: No Feels Safe at Home: Yes Safety Concerns: Feels Safe At This Time Smoking Status: Never smoker Do You Dip or Chew Tobacco: No Second Hand Exposure: No Tobacco Cessation Education Requested by Patient: No Hx Alcohol Use: No Hx Substance Use: No Review of Systems Review of Systems: All systems reviewed & are unremarkable except as noted in HPI & below Constitutional: no fever, no chills, no fatigue, no weakness and no anorexia Respiratory: no cough, no dyspnea, no dyspnea on exertion and no wheezing Cardiovascular: + radiating jaw, neck or arm pain (?source -- may be cardiac related. ); no chest pain, no palpitations, no lightheadedness, no syncope and no edema Gastrointestinal: + abdominal pain (Post op. ) and + bloating; no nausea, no vomiting, no constipation, no diarrhea/loose stools and no melena Genitourinary: no difficulty urinating Musculoskeletal: + back pain (Chronic low back pain. ), + neck pain (Left neck pain ) and + radicular pain (Right leg radiculopathy ) Integumentary: no non-healing lesions Allergy / Immunological: no rash Physical Exam Physical Exam: General: Resting comfortably in no apparent distress HEENT: NC/AT; PERRLA with EOMI; [place] conjunctiva, MMM. No erythema of posterior pharynx Neck: Tender to light palpation over left side of neck, extending from left trapezius to sternocleidomastoid. Cardiac: RRR w/o murmurs, gallops or rubs Lungs: CTA bilaterally; No rhonchi, wheezing, or rales Abdomen: Bowel normoactive X 4; Nontender to palpation Back: NO spinous tenderness Extremities: Warm. No edema present Neuro: No focal weakness Skin: No rash Results & Data Vital Signs (Past 12 Hours) Vital Signs Temp Pulse Resp BP Pulse Ox 07/01/18 14:51 36.6 C 67 16 161/79 H 97 07/01/18 14:03 36.6 C 52 L 16 146/80 H 99 07/01/18 13:14 36.8 C 67 16 147/78 H 98 07/01/18 12:45 36.8 C 70 16 165/75 H 95 07/01/18 12:35 73 17 160/73 H 99 07/01/18 12:25 36.3 C L 75 16 162/71 H 96 07/01/18 12:15 68 17 147/68 H 96 07/01/18 12:05 78 17 145/64 H 97 07/01/18 11:55 69 16 141/64 H 100 07/01/18 11:45 72 19 153/66 H 100 07/01/18 11:39 36.6 C 78 19 158/65 H 100 Laboratory Results 07/01/18 07/01/18 07/01/18 Range/Units 13:34 13:34 13:22 WBC (4.8-10.8) K/uL RBC (4.2-5.4) M/uL Hgb (12.0-16.0) g/dL Hct (37-47) % MCV (80-100) fL MCH (25-34) pg MCHC (32-36) g/dL RDW Std Deviation (36.4-46.3) fL RDW Coeff of Zee (11.5-14.5) % Plt Count (130-400) K/uL MPV (7.4-10.4) fL PT 10.9 (9.0-12.0) Seconds INR 1.1 (0.9-1.1) APTT < 20.0 L (21.0-31.0) Seconds PTT Ratio 0.7 Sodium Pending Potassium Pending Chloride Pending Carbon Dioxide Pending Anion Gap Pending BUN Pending Creatinine Pending Est Cr Clr Drug Dosing Pending Est GFR ( Amer) Pending Est GFR (Non-Af Amer) Pending BUN/Creatinine Ratio Pending Glucose Pending Calcium Pending Troponin I Pending Blood Type Antibody Screen 07/01/18 07/01/18 Range/Units 13:22 07:51 WBC 8.38 (4.8-10.8) K/uL RBC 3.58 L (4.2-5.4) M/uL Hgb 11.8 L (12.0-16.0) g/dL Hct 33.6 L (37-47) % MCV 93.9 (80-100) fL MCH 33.0 (25-34) pg MCHC 35.1 (32-36) g/dL RDW Std Deviation 45.5 (36.4-46.3) fL RDW Coeff of Zee 13.3 (11.5-14.5) % Plt Count 196 (130-400) K/uL MPV 9.6 (7.4-10.4) fL PT (9.0-12.0) Seconds INR (0.9-1.1) APTT (21.0-31.0) Seconds PTT Ratio Sodium Potassium Chloride Carbon Dioxide Anion Gap BUN Creatinine Est Cr Clr Drug Dosing Est GFR ( Amer) Est GFR (Non-Af Amer) BUN/Creatinine Ratio Glucose Calcium Troponin I Blood Type A Positive Antibody Screen NEGATIVE
[2018-07-01] MEDS ORDERED: HydrALAZINE HCL 20 MG/ML VIAL IV PRN (15:49)
[2018-07-01] MEDS: cefOXitin 2,000 MG in DEXTROSE 5% 50 ML IV SCH ×2 (16:18→20:26)
[2018-07-01] MEDS: GABAPENTIN 300 MG CAP PO SCH (20:20)
[2018-07-01] MEDS ORDERED: HEPARIN SOD 5,000 UNIT/0.5 ML VIAL SQ SCH (21:00)
[2018-07-02] MEDS: cefOXitin 2,000 MG in DEXTROSE 5% 50 ML IV SCH (02:45)
[2018-07-02] MEDS ORDERED: HEPARIN SOD 5,000 UNIT/0.5 ML VIAL SQ SCH (06:00)
[2018-07-02 07:10] LABS: Hematocrit (blood only) 34.9 % (37-47); Hemoglobin 11.5 g/dL (12.0-16.0); Immature Granulocytes # (auto) 0.01 K/uL (0.00-0.02); Immature Granulocytes % (auto) 0.1 %; Lymphocytes # (auto) 1.43 K/uL (1.2-3.4); Mean Corpuscular Volume 96.7 fL (80-100); Mean Platelet Volume 9.6 fL (7.4-10.4); Monocytes # (auto) 0.87 K/uL (0.11-0.59); Monocytes % (auto) 9.7 %; Neutrophils # (auto) 6.64 K/uL (1.4-6.5); Neutrophils % (auto) 74.2 %; Platelet Count 211 K/uL (130-400); RDW Coefficient of Variation 13.5 % (11.5-14.5); RDW Standard Deviation 47.6 fL (36.4-46.3); Red Blood Count 3.61 M/uL (4.2-5.4); White Blood Count 8.95 K/uL (4.8-10.8)
[2018-07-02 07:24] LABS: BUN Creatinine Ratio 11.7 (10-20); Calcium 8.7 mg/dl (8.5-10.1); Creatinine Clr Calc Pharmacy 38.3 ml/min; Est GFR (African American) 46.7; Est GFR (Non-African American) 40.3; Magnesium 1.6 mg/dl (1.8-2.4); Potassium 3.5 mmol/L (3.5-5.1)
--- NOTE | 2018-07-02 07:26 | Surgery Progress Note ---
Date of Service July 02, 2018 Assessment & Plan (1) Adenocarcinoma of colon: POD 1 resection splenic flexure H&H stable, PRP pending start clears ambulate change to subQ lovenox today Subjective sitiing in chair, no complaints, tee removed Physical Exam Gastrointestinal (Abdomen): Inspection/Auscultation: + abdominal surgical incision (dresing changed this morning); abdomen not distended Percussion/Palpation: abdomen soft Results & Data Vital Signs (Past 12 Hours) Vital Signs Temp Pulse Resp BP Pulse Ox 07/02/18 02:53 37.6 C H 82 17 126/69 92 07/01/18 23:53 37.3 C 86 16 150/74 H 93
[2018-07-02] MEDS: LACTATED RINGER'S 1,000 ML IV SCH ×2 (07:48→18:49)
[2018-07-02] MEDS: hydroCHLOROthiazide 25 MG TAB PO SCH (08:52)
[2018-07-02] MEDS: GABAPENTIN 300 MG CAP PO SCH ×2 (08:52→20:16)
[2018-07-02] MEDS: LISINOPRIL 10 MG TAB PO SCH (08:52)
--- NOTE | 2018-07-02 09:01 | Anesthesiology Progress Note ---
Date of Service July 02, 2018 Anesthesia Post Procedure Vital Signs Vital Signs: Temp Pulse Pulse Resp BP BP Pulse Ox 07/02/18 07:51 36.9 C 70 16 134/64 93 07/02/18 02:53 37.6 C H 82 17 126/69 92 07/01/18 23:53 37.3 C 86 16 150/74 H 93 07/01/18 18:34 36.9 C 87 19 164/80 H 92 07/01/18 15:48 36.7 C 78 20 161/81 H 98 07/01/18 14:51 36.6 C 67 16 161/79 H 97 07/01/18 14:03 36.6 C 52 L 16 146/80 H 99 07/01/18 13:14 36.8 C 67 16 147/78 H 98 07/01/18 12:45 36.8 C 70 16 165/75 H 95 07/01/18 12:35 73 17 160/73 H 99 07/01/18 12:25 36.3 C L 75 16 162/71 H 96 07/01/18 12:15 68 17 147/68 H 96 07/01/18 12:05 78 17 145/64 H 97 07/01/18 11:55 69 16 141/64 H 100 07/01/18 11:45 72 19 153/66 H 100 07/01/18 11:39 36.6 C 78 19 158/65 H 100 Pain Intensity Lower Back: Pain Intensity: 8 Abdomen: Pain Intensity: 7 Notes Mental Status: alert / awake / arousable and participated in evaluation Patient Amnestic to Procedure: Yes Nausea / Vomiting: adequately controlled Pain: adequately controlled Airway Patency, RR, SpO2: stable & adequate BP & HR: stable & adequate Hydration State: stable & adequate Anesthetic Complications: no major complications apparent and Pt Satisfied with anesthetic care
[2018-07-02] MEDS: MAGNESIUM SULFATE / D5W 1 GM/100 ML BAG IV SCH ×2 (09:02→10:10)
[2018-07-02] MEDS: MoRPHine SULFATE PCA 50 MG/50ML IV PRN (12:00)
--- NOTE | 2018-07-02 12:26 | Hospitalist Progress Note ---
Date of Service July 02, 2018 Assessment & Plan (1) Status post colon resection: - In setting of recently diagnosed colon adenocarcinoma; POD#1. - Pain control per primary team - DVT ppx per primary team; currently receiving Lovenox 60 mg subQ BID. - IV fluid hydration: LR -- will decrease to 80 cc/hr in setting of LE edema. - Clear liquid diet as tolerated. (2) Neck pain on left side: - Developed left sided neck pain following surgery -- musculoskeletal vs. gas pain following laparoscopic procedure vs. other. - Pain is now resolving, will monitor. - EKG was negative for acute changes; serial troponins negative. (3) Adenocarcinoma of colon: - Recently diagnosed, status post colon resection as noted above. - Will need outpatient follow up. (4) Factor V Leiden: - Previously on Eliquis 2.5 mg BID at home. - Lovenox 60 mg subQ BID dosing post operatively. - Surgery team will determine anticoagulation therapy at discharge. (5) HTN (hypertension): - Resume home HCTZ and Lisinopril as renal function is stable. (6) Neuropathy: - Complains of lumbar spine pain with radiculopathy down right leg -- has been evaluated by outpatient providers. - Continue Gabapentin as prescribed. (7) Gout: - Holding home med, is non-formulary. (8) CKD (chronic kidney disease) stage 3, GFR 30-59 ml/min: - Renally dose all meds. - Monitor renal function closely. (9) Obesity: - BMI 36 -- encourage weight loss and exercise. (10) Electrolyte abnormality: - Mag level 1.6 -- ordered mag sulfate 2 gm IV. - Monitor qAM. (11) History of DVT (deep vein thrombosis): - Was previously on Eliquis 2.5 mg BID. - Discussed anticoagulation treatment with pharmacist and Dr. Hadley; Eliquis dosing should potentially be increased to 5 mg BID, is unclear why she is taking lower dose. - Also discussed future anticoagulation treatment with the PA from surgery -- surgery team has started Lovenox 60 mg subQ BID. - Discharge plan for anticoagulation therapy is unclear -- may restart home Eliquis. Eliquis can be used in the oncology population, Xarelto is also in dicated if necessary. Dispo: Pt. is medically stable, will sign off. Please call with any questions. At discharge, will need to verify cost of new anticoagulation med if not resuming home Eliquis. Supervising Physician Co-Signing Physician Notes Attending Attestation - Chart reviewed, care plan d/w ANJALI Irby. I agree w/ the acevedo components of her consultation note. 72yo female with recently diagnosed colon cancer now s/p hemicolectomy. Agree with her recommendations for anticoagulation. Obviously very high risk for VTE given her factor 5 Leiden mutation and prior DVT history along with active cancer/surgery. Other medical issues and vitals are stable. Juanpablo Mccormick MD Subjective Pt. is doing well today. Abd pain post op now improved, has mild pain in kindra- umbilical area. Neck pain now resolving. Denies chest pain, SOB, N/V. Review of Systems Review of Systems: All systems reviewed & are unremarkable except as noted in HPI & below Constitutional: no fever, no chills, no fatigue and no weakness Respiratory: no cough, no dyspnea, no dyspnea on exertion and no wheezing Cardiovascular: + edema; no chest pain, no palpitations, no lightheadedness and no syncope Gastrointestinal: + abdominal pain; no nausea, no vomiting, no constipation and no diarrhea/loose stools Genitourinary: no difficulty urinating Musculoskeletal: no back pain, no neck pain and no joint pain Integumentary: no non-healing lesions Allergy / Immunological: no rash Physical Exam Physical Exam: General: Resting comfortably in no apparent distress HEENT: NC/AT; PERRLA with EOMI; [place] conjunctiva, MMM. No erythema of posterior pharynx Neck: supple and nontender Cardiac: RRR Lungs: CTA bilaterally; No rhonchi, wheezing, or rales Abdomen: Bowel normoactive X 4; Nontender to palpation Extremities: Warm. +1 bilat LE edema. Neuro: No focal weakness Skin: No rash Results & Data Vital Signs (Past 12 Hours) Vital Signs Temp Pulse Pulse Resp BP Pulse Ox 07/02/18 11:55 36.8 C 70 18 124/72 93 07/02/18 07:51 36.9 C 70 16 134/64 93 07/02/18 02:53 37.6 C H 82 17 126/69 92 Laboratory Results 07/02/18 07/02/18 07/02/18 Range/Units 06:56 06:56 06:56 WBC 8.95 (4.8-10.8) K/uL RBC 3.61 L (4.2-5.4) M/uL Hgb 11.5 L (12.0-16.0) g/dL Hct 34.9 L (37-47) % MCV 96.7 (80-100) fL MCH 31.9 (25-34) pg MCHC 33.0 (32-36) g/dL RDW Std Deviation 47.6 H (36.4-46.3) fL RDW Coeff of Zee 13.5 (11.5-14.5) % Plt Count 211 (130-400) K/uL MPV 9.6 (7.4-10.4) fL Immature Gran % (Auto) 0.1 % Neut % (Auto) 74.2 % Lymph % (Auto) 16.0 % Frontier % (Auto) 9.7 % Eos % (Auto) 0.0 % Baso % (Auto) 0.0 % Immature Gran # (Auto) 0.01 (0.00-0.02) K/uL Neut # (Auto) 6.64 H (1.4-6.5) K/uL Lymph # (Auto) 1.43 (1.2-3.4) K/uL Frontier # (Auto) 0.87 H (0.11-0.59) K/uL Eos # (Auto) 0.00 (0-0.5) K/uL Baso # (Auto) 0.00 (0-0.2) K/uL PT (9.0-12.0) Seconds INR (0.9-1.1) APTT (21.0-31.0) Seconds PTT Ratio Sodium 140 (136-145) mmol/L Potassium 3.5 (3.5-5.1) mmol/L Chloride 105 (98-107) mmol/L Carbon Dioxide 28 (21-32) mmol/L Anion Gap 7.0 (3-11) BUN 15 (7-18) mg/dl Creatinine 1.31 H (0.6-1.2) mg/dl Est Cr Clr Drug Dosing 38.3 ml/min Est GFR ( Amer) 46.7 Est GFR (Non-Af Amer) 40.3 BUN/Creatinine Ratio 11.7 (10-20) Glucose 94 (70-99) mg/dl Calcium 8.7 (8.5-10.1) mg/dl Magnesium 1.6 L (1.8-2.4) mg/dl Troponin I < 0.015 (0-0.045) ng/ml Specimen Hemolysis 07/02/18 07/01/18 07/01/18 Range/Units 01:01 19:20 13:34 WBC (4.8-10.8) K/uL RBC (4.2-5.4) M/uL Hgb (12.0-16.0) g/dL Hct (37-47) % MCV (80-100) fL MCH (25-34) pg MCHC (32-36) g/dL RDW Std Deviation (36.4-46.3) fL RDW Coeff of Zee (11.5-14.5) % Plt Count (130-400) K/uL MPV (7.4-10.4) fL Immature Gran % (Auto) % Neut % (Auto) % Lymph % (Auto) % Frontier % (Auto) % Eos % (Auto) % Baso % (Auto) % Immature Gran # (Auto) (0.00-0.02) K/uL Neut # (Auto) (1.4-6.5) K/uL Lymph # (Auto) (1.2-3.4) K/uL Frontier # (Auto) (0.11-0.59) K/uL Eos # (Auto) (0-0.5) K/uL Baso # (Auto) (0-0.2) K/uL PT (9.0-12.0) Seconds INR (0.9-1.1) APTT (21.0-31.0) Seconds PTT Ratio Sodium (136-145) mmol/L Potassium (3.5-5.1) mmol/L Chloride (98-107) mmol/L Carbon Dioxide (21-32) mmol/L Anion Gap (3-11) BUN (7-18) mg/dl Creatinine (0.6-1.2) mg/dl Est Cr Clr Drug Dosing ml/min Est GFR ( Amer) Est GFR (Non-Af Amer) BUN/Creatinine Ratio (10-20) Glucose (70-99) mg/dl Calcium (8.5-10.1) mg/dl Magnesium (1.8-2.4) mg/dl Troponin I 0.019 < 0.015 < 0.015 (0-0.045) ng/ml Specimen Hemolysis 07/01/18 07/01/18 07/01/18 Range/Units 13:34 13:22 13:22 WBC 8.38 (4.8-10.8) K/uL RBC 3.58 L (4.2-5.4) M/uL Hgb 11.8 L (12.0-16.0) g/dL Hct 33.6 L (37-47) % MCV 93.9 (80-100) fL MCH 33.0 (25-34) pg MCHC 35.1 (32-36) g/dL RDW Std Deviation 45.5 (36.4-46.3) fL RDW Coeff of Zee 13.3 (11.5-14.5) % Plt Count 196 (130-400) K/uL MPV 9.6 (7.4-10.4) fL Immature Gran % (Auto) % Neut % (Auto) % Lymph % (Auto) % Frontier % (Auto) % Eos % (Auto) % Baso % (Auto) % Immature Gran # (Auto) (0.00-0.02) K/uL Neut # (Auto) (1.4-6.5) K/uL Lymph # (Auto) (1.2-3.4) K/uL Frontier # (Auto) (0.11-0.59) K/uL Eos # (Auto) (0-0.5) K/uL Baso # (Auto) (0-0.2) K/uL PT 10.9 (9.0-12.0) Seconds INR 1.1 (0.9-1.1) APTT < 20.0 L (21.0-31.0) Seconds PTT Ratio 0.7 Sodium 140 (136-145) mmol/L Potassium 3.5 (3.5-5.1) mmol/L Chloride 107 (98-107) mmol/L Carbon Dioxide 26 (21-32) mmol/L Anion Gap 8.0 (3-11) BUN 15 (7-18) mg/dl Creatinine 1.33 H (0.6-1.2) mg/dl Est Cr Clr Drug Dosing 38.1 ml/min Est GFR ( Amer) 45.8 Est GFR (Non-Af Amer) 39.6 BUN/Creatinine Ratio 11.0 (10-20) Glucose 134 H (70-99) mg/dl Calcium 9.1 (8.5-10.1) mg/dl Magnesium (1.8-2.4) mg/dl Troponin I (0-0.045) ng/ml Specimen Hemolysis
[2018-07-02] MEDS: ENOXAPARIN INJ 60 MG/0.6 ML SYR SQ SCH (13:23)
[2018-07-02] MEDS: SODIUM CHLORIDE 0.9% 1000ML 1,000 ML IV SCH ×2 (18:57→18:58)
[2018-07-03] MEDS: ENOXAPARIN INJ 60 MG/0.6 ML SYR SQ SCH ×2 (00:28→12:27)
[2018-07-03] MEDS: LACTATED RINGER'S 1,000 ML IV SCH ×2 (06:09→17:04)
--- NOTE | 2018-07-03 06:48 | Surgery Progress Note ---
Date of Service POD 2 July 03, 2018 Assessment & Plan (1) Adenocarcinoma of colon: POD 2 increase activity and diet restart eliquis in 2 days POD 1 resection splenic flexure H&H stable, PRP pending start clears ambulate change to subQ lovenox today Subjective no complaints she was told that she was not breathing well but she feels great states may have passed some flatus tolerated oral intake Physical Exam Physical Exam: alert coherent abd soft dressing dry and intact Results & Data Vital Signs (Past 12 Hours) Vital Signs Temp Pulse Pulse Resp BP Pulse Ox 07/03/18 03:19 93 07/03/18 03:09 36.9 C 93 H 14 136/72 94 07/03/18 00:31 37.4 C 91 H 07/02/18 23:16 37.6 C H 106 H 14 112/62 93 07/02/18 19:51 36.6 C 85 17 120/63 92
[2018-07-03 07:20] LABS: Basophils # (auto) 0.02 K/uL (0-0.2); Basophils % (auto) 0.3 %; Eosinophils # (auto) 0.02 K/uL (0-0.5); Eosinophils % (auto) 0.3 %; Hematocrit (blood only) 32.2 % (37-47); Hemoglobin 10.5 g/dL (12.0-16.0); Immature Granulocytes # (auto) 0.01 K/uL (0.00-0.02); Immature Granulocytes % (auto) 0.1 %; Lymphocytes # (auto) 1.63 K/uL (1.2-3.4); Lymphocytes % (auto) 23.2 %; Mean Corpuscular Hgb Conc 32.6 g/dL (32-36); Mean Corpuscular Volume 97.6 fL (80-100); Mean Platelet Volume 10.2 fL (7.4-10.4); Monocytes % (auto) 11.4 %; Neutrophils # (auto) 4.56 K/uL (1.4-6.5); Neutrophils % (auto) 64.7 %; Platelet Count 187 K/uL (130-400); RDW Coefficient of Variation 13.6 % (11.5-14.5); RDW Standard Deviation 48.5 fL (36.4-46.3); White Blood Count 7.04 K/uL (4.8-10.8)
[2018-07-03] MEDS: MoRPHine SULFATE PCA 50 MG/50ML IV PRN ×4 (07:22→22:47)
[2018-07-03 08:06] LABS: Calcium 8.7 mg/dl (8.5-10.1); Creatinine Clr Calc Pharmacy 52.9 ml/min; Est GFR (African American) 67.2; Est GFR (Non-African American) 57.9; Magnesium 1.6 mg/dl (1.8-2.4); Potassium 3.5 mmol/L (3.5-5.1)
[2018-07-03] MEDS: hydroCHLOROthiazide 25 MG TAB PO SCH (08:08)
[2018-07-03] MEDS: GABAPENTIN 300 MG CAP PO SCH ×2 (08:08→20:17)
[2018-07-03] MEDS: LISINOPRIL 10 MG TAB PO SCH (08:08)
[2018-07-03] MEDS: SODIUM CHLORIDE 0.9% 1000ML 1,000 ML IV SCH (14:16)
[2018-07-04] MEDS: ENOXAPARIN INJ 60 MG/0.6 ML SYR SQ SCH ×2 (01:21→12:38)
[2018-07-04] MEDS: LACTATED RINGER'S 1,000 ML IV SCH (03:55)
[2018-07-04 06:48] LABS: Basophils # (auto) 0.01 K/uL (0-0.2); Basophils % (auto) 0.2 %; Hematocrit (blood only) 30.4 % (37-47); Hemoglobin 10.2 g/dL (12.0-16.0); Immature Granulocytes # (auto) 0.01 K/uL (0.00-0.02); Immature Granulocytes % (auto) 0.2 %; Lymphocytes # (auto) 1.03 K/uL (1.2-3.4); Lymphocytes % (auto) 20.4 %; Mean Corpuscular Hgb Conc 33.6 g/dL (32-36); Mean Corpuscular Volume 95.6 fL (80-100); Mean Platelet Volume 9.6 fL (7.4-10.4); Monocytes # (auto) 0.45 K/uL (0.11-0.59); Monocytes % (auto) 8.9 %; Neutrophils # (auto) 3.44 K/uL (1.4-6.5); Neutrophils % (auto) 68.3 %; Platelet Count 167 K/uL (130-400); RDW Standard Deviation 45.7 fL (36.4-46.3); Red Blood Count 3.18 M/uL (4.2-5.4); White Blood Count 5.04 K/uL (4.8-10.8)
[2018-07-04] MEDS: MoRPHine SULFATE PCA 50 MG/50ML IV PRN (06:57)
[2018-07-04 07:19] LABS: BUN Creatinine Ratio 14.1 (10-20); Calcium 9.4 mg/dl (8.5-10.1); Creatinine Clr Calc Pharmacy 66.5 ml/min; Est GFR (African American) 88.8; Est GFR (Non-African American) 76.6; Magnesium 1.4 mg/dl (1.8-2.4); Potassium 3.1 mmol/L (3.5-5.1)
[2018-07-04] MEDS ORDERED: OXYCODONE/ACETAMINOPHEN 5mg/325mg TAB PO PRN (07:36)
[2018-07-04] MEDS: hydroCHLOROthiazide 25 MG TAB PO SCH (07:39)
[2018-07-04] MEDS: GABAPENTIN 300 MG CAP PO SCH (07:39)
[2018-07-04] MEDS: LISINOPRIL 10 MG TAB PO SCH (07:39)
--- NOTE | 2018-07-04 07:40 | Surgery Progress Note ---
Date of Service July 04, 2018 Assessment & Plan (1) Adenocarcinoma of colon: POD 3 splenic flexure resection advance diet as arlene len drain removed d/c CHART CHANGER, IVF supplement K+ advance diet as arlene seen with Dr. Ridley Subjective passing flatus, no BM yet, tolerating full liquids, used CHART CHANGER once this AM Physical Exam Gastrointestinal (Abdomen): Inspection/Auscultation: + abdominal surgical incision (clean, dry); abdomen not distended Percussion/Palpation: abdomen soft Results & Data Vital Signs (Past 12 Hours) Vital Signs Temp Pulse Pulse Resp BP Pulse Ox 07/04/18 03:20 36.9 C 78 16 150/72 H 92 07/03/18 23:56 36.8 C 75 15 150/76 H 92
[2018-07-04] MEDS ORDERED: POTASSIUM CHLORIDE 20 MEQ TABCR PO STA (07:54)
[2018-07-04] MEDS ORDERED: MAGNESIUM OXIDE 400 MG TAB PO SCH (09:00)
[2018-07-04] MEDS ORDERED: POTASSIUM CHLORIDE 20 MEQ TABCR PO SCH (14:00)
--- NOTE | 2018-07-07 07:49 | Discharge Summary ---
PRIMARY DISCHARGE DIAGNOSES: 1. Colon cancer. 2. Incisional hernia. SECONDARY DISCHARGE DIAGNOSES: 1. Factor V Leiden mutation. 2. Hypertension. 3. Chronic kidney disease stage III. 4. Gout. 5. Obesity. 6. Neuropathy. PROCEDURE PERFORMED: Laparoscopic assisted colon resection and repair of an incisional hernia. CONSULTATIONS: [facility] hospitalist to assist in medical management. HOSPITAL COURSE: The patient is a 72-year-old female with a partially obstructing mass of the splenic flexure, taken to the operating room for laparoscopic-assisted resection. The procedure was well tolerated. She was transferred to the surgical floor. The hospitalist was consulted routinely. She was started on a b.i.d. Lovenox while her Eliquis was held. She was started on clear liquids on postoperative day 1. She was able to advance to full liquids on day 2. She was increasing activity. On day #3, TERADATA ARCHITECT was discontinued. She was able to tolerate oral analgesics. She was able to advance to a regular diet. She began moving her bowels and was stable for discharge that afternoon. Her incision was clean and dry. [place] drain had been removed from the incision. DISCHARGE INSTRUCTIONS: Discharge home. Follow up with Dr. Ridley in 1 week. DISCHARGE MEDICATIONS: Resume home medications, tramadol 100 mg q.i.d. p.r.n., Eliquis 2.5 mg p.o. b.i.d., Zantac 150 mg at bedtime, daily multivitamin, lisinopril 10 mg daily, hydrochlorothiazide 25 mg daily, gabapentin 300 mg b.i.d., febuxostat 80 mg daily, Benadryl 25 mg at bedtime as needed, Vitamin D3 1000 units daily, and she can hold daily docusate 100 mg. PATHOLOGY: A well-differentiated infiltrative adenocarcinoma, measuring 3.0 x 2.5 x 1.0, infiltrates through the bowel wall into the pericolic fat. Two out of 16 lymph nodes contain metastatic adenocarcinoma (2/16). [facility]
== END 2018-07-04 17:08 | disposition home or self-care (01) | DRG 330 ==
LOC: ASU 07:29 → 3N 11:53 → SUATTDRO 11:53
DX: E66.9 Obesity, unspecified; Z82.3 Family history of stroke; M10.9 Gout, unspecified; Z68.36 Body mass index [BMI] 36.0-36.9, adult; Z86.718 Personal history of other venous thrombosis and embolism; N18.3 Chronic kidney disease, stage 3 (moderate); M54.2 Cervicalgia; C77.2 Secondary and unspecified malignant neoplasm of intra-abdominal lymph nodes; E55.9 Vitamin D deficiency, unspecified; D68.51 Activated protein C resistance; K43.0 Incisional hernia with obstruction, without gangrene; I12.9 Hypertensive chronic kidney disease with stage 1 through stage 4 chronic kidney disease, or unspecified chronic kidney disease; Z83.3 Family history of diabetes mellitus; G62.9 Polyneuropathy, unspecified; C18.5 Malignant neoplasm of splenic flexure

== ENCOUNTER 2018-09-04 15:43 | Inpatient (IN) ==
[2018-09-04] MEDS ORDERED: SODIUM CHLORIDE 0.9% 1000ML 1,000 ML IV ONE (16:05)
--- NOTE | 2018-09-04 16:38 | CT Scan Report ---
CT abd pelvis wo con CT DOSE: 596.07 mGy.cm HISTORY: Pain abd pain sent for CT TECHNIQUE: Multiaxial CT images of the abdomen and pelvis were performed without contrast. A dose lo wering technique was utilized adhering to the principles of ALARA. COMPARISON STUDY: 06/24/2018 FINDINGS: The lung bases are clear. Configuration of liver spleen and pancreas are unremarkable. Prio r cholecystectomy. Kidneys are considered negative for hydronephrosis. Diffuse fatty replacement of the pancreas. Apparent interval postoperative changes involving the colon at the splenic flexure consistent with a partial colonic resection. Minimal infiltrative change of the surrounding fat most likely a postopera tive basis. Bowel pattern currently is nonobstructive. The colonic distention. The described is no lo nger seen. Several fluid-filled loops of small bowel suggesting ileus versus enteritis. IMPRESSION: 1. Operative changes consistent with an interval partial colectomy 2. Interval decompression of the previously described colonic distention. 3. Fluid-filled loops of small bowel suggesting nonobstructive ileus versus enteritis. 4. Prior cholecystectomy. The above report was generated using voice recognition software. It may contain grammatical, syntax or spelling errors. Electronically signed by: Adam White M.D. 09/04/2018 4:36 PM
[2018-09-04] MEDS ORDERED: SODIUM CHLORIDE 0.9% 500 ML IV ONE (17:14)
--- NOTE | 2018-09-04 18:35 | History & Physical Report ---
Date of Service September 04, 2018 Assessment & Plan (1) Acute renal failure: Administer IV fluids. Hold lisinopril and hydrochlorothiazide. Maya catheter to monitor urine output. Serial lab studies. Check urine sodium and urine creatinine Present on Admission?: Yes (2) Acute gastroenteritis: It may be infectious or simply side effect from the chemotherapy. Check stool culture and C. difficile toxin assay Present on Admission?: Yes (3) Volume depletion: Hold diuretics. Administer IV fluids. Clear liquid diet for now and advance as tolerated Present on Admission?: Yes (4) Chemotherapy adverse reaction: 5-FU and leucovorin chemotherapy may be causing the gastroenteritis symptoms Present on Admission?: Yes (5) Factor 5 Leiden mutation, heterozygous: Continue Eliquis therapy Present on Admission?: Yes (6) HTN (hypertension): Hold lisinopril and hydrochlorothiazide Present on Admission?: Yes History of Present Illness Chief Complaint: Protracted nausea, vomiting, diarrhea, volume depletion Primary Care Provider: Eliel Sykes MD 72-year-old female undergoing chemotherapy for stage III colon cancer. For the past week she has had nausea vomiting and diarrhea which has resulted in volume depletion and generalized weakness. She is now in acute renal failure with creatinine 3.1. A recent creatinine was 1.0. Potassium was slightly low. She is receiving 5-FU and leucovorin treatment. Hydrochlorothiazide and lisinopril will be placed on hold. Uloric will also be placed on hold due to frequent side effects from that particular medication on the GI tract. She is admitted for further evaluation and treatment. She denies hematemesis, melena, hematochezia. He was reported to me that a C. difficile toxin assay was drawn at the cancer center. Stool culture will be requested. Maya catheter has been placed to monitor urine output and serial lab studies are ordered. Allergies Allergy/AdvReac Type Severity Reaction Status Date / Time celecoxib Allergy Severe FACIAL Verified 09/04/18 16:49 SWELLING, SOB, HIVES Home Medications Home Medications Medication Instructions Recorded Confirmed Type cholecalciferol (vitamin D3) 1,000 unit PO QAM 10/18/17 09/04/18 History [Vitamin D3] hydrochlorothiazide 25 mg PO QAM 10/18/17 09/04/18 History lisinopril 10 mg PO QAM 10/18/17 09/04/18 History multivitamin 1 tab PO QAM 10/18/17 09/04/18 History diphenhydramine HCl [Benadryl] 25 mg PO HS PRN 06/30/18 09/04/18 History ranitidine HCl [Zantac] 150 mg PO HS PRN 06/30/18 09/04/18 History apixaban 2.5 mg tablet 2.5 mg PO BID #180 tab 08/29/18 09/04/18 History febuxostat 80 mg tablet 80 mg PO QAM #90 tab 09/01/18 09/04/18 Rx tramadol 50 mg tablet 100 mg PO QID PRN #720 tab 09/01/18 09/04/18 Rx diphenoxylate-atropine 1 tab PO QID PRN 09/04/18 09/04/18 History gabapentin 300 mg PO TID 09/04/18 09/04/18 History ondansetron in 0.9 % sod chlor 8 mg IV UD 09/04/18 09/04/18 History Past Med/Surg History Medical History Hypertension (Chronic) CKD (chronic kidney disease) stage 3, GFR 30-59 ml/min (Chronic) Factor 5 Leiden mutation, heterozygous (Chronic) On Eliquis for h/o DVT --CURRENTLY ON HOLD UNTIL PROCEDURES ARE DONE. Colon obstruction (Acute) At splenic flexure. Biopsy pending, felt likely cancerous. Neuropathy BILATERAL LEGS Adenocarcinoma of colon GERD (gastroesophageal reflux disease) OCCASIONAL. Gout History of DVT (deep vein thrombosis) On Eliquis. Obesity Osteoarthritis Surgical History S/P cholecystectomy H/O tubal ligation History of tooth extraction (Acute) H/O colonoscopy 06/26/18 [facility] History of colon resection 07/01/2018. GETA. MAC 3, grade 1 view. No issues. Family History Sister Family history of diabetes mellitus Mother Family history of diabetes mellitus Stroke syndrome Father Suicide Unknown Arthritis Social History Preferred Language: Malay Communication Ability: Effective Visual Impairment: No Limitations Hearing Ability: Normal Beliefs That Will Affect Care: None marital status: Current Living Situation: Spouse current occupational status: retired current occupation: Previous seamstress. Feels Safe at Home: Yes Smoking Status: Never smoker Second Hand Exposure: No Hx Alcohol Use: No Hx Substance Use: No Review of Systems Review of Systems: Constitutional-no fever or chills. Generalized weakness and lightheadedness ENT-no blurred vision, no double vision, no epistaxis, no sore throat Respiratory-no cough, no wheezing, no shortness of breath Cardiac-no palpitations, no chest pain, no syncope GI-nausea, vomiting, diarrhea. No hematemesis, melena, hematochezia -no urinary retention, no urinary incontinence, no dysuria, no hematuria Musculoskeletal-no joint pain, no muscle tenderness Skin-no bruising, no rashes, no pruritus Neuro-generalized weakness and lightheadedness. No syncope Psych-no depression, no anxiety Physical Exam Physical Exam: General-alert and oriented x3, no fevers, no chills HEENT-head atraumatic and normocephalic, TMs intact bilaterally, pupils equal and reactive to light, extraocular muscles intact Neck-no lymphadenopathy or thyromegaly, trachea midline Chest-clear to auscultation percussion. No rales wheezing or rhonchi Cardiac-regular rate and rhythm, normal S1 and S2, no JVD Abdomen-normal bowel sounds, no hepatosplenomegaly. Diffuse mild tenderness. No masses. No rebound or guarding Extremities-no cyanosis, clubbing, or edema Neuro-cranial nerves II through XII intact, motor and sensory function within normal limits, no focal deficits Psych-normal affect, normal mood Results & Data Vital Signs (Past 12 Hours) Vital Signs Temp Pulse Pulse Resp BP BP Pulse Ox 09/04/18 17:22 75 20 107/53 L 97 09/04/18 15:52 36.6 C 77 18 92/56 L 100 PG Care Time/CCT Total # of Minutes Spent Total Time Spent with Patient: Total time spent is greater than 50% in coordination of care (as documented) at patient's floor/unit and/or counseling patient:
[2018-09-04] MEDS ORDERED: ONDANSETRON IV SCH (19:49)
[2018-09-04] MEDS ORDERED: SODIUM CHLORIDE IV SCH (19:49)
[2018-09-04] MEDS ORDERED: ACETAMINOPHEN 325 MG TAB PO PRN (19:49)
[2018-09-04] MEDS ORDERED: ALUMINUM/MAGNESIUM SUSP 30 ML UDC PO PRN (19:49)
[2018-09-04] MEDS: GABAPENTIN 300 MG CAP PO SCH (20:33)
[2018-09-04] MEDS: SODIUM CHLORIDE 0.9% 1000ML 1,000 ML IV SCH (20:33)
[2018-09-04] MEDS: TRAMADOL HCL 50 MG TABLET PO PRN (20:40)
[2018-09-04 21:05] LABS: Hematocrit (blood only) 29.8 % (37-47); Hemoglobin 10.2 g/dL (12.0-16.0); Mean Corpuscular Volume 95.2 fL (80-100); Mean Platelet Volume 9.1 fL (7.4-10.4); Platelet Count 170 K/uL (130-400); RDW Coefficient of Variation 15.7 % (11.5-14.5); RDW Standard Deviation 49.6 fL (36.4-46.3); Red Blood Count 3.13 M/uL (4.2-5.4)
[2018-09-04 21:20] LABS: Mean Corpuscular Hgb Conc 34.2 g/dL (32-36)
[2018-09-04] MEDS: APIXABAN 2.5 MG TAB PO SCH (21:31)
[2018-09-04 21:33] LABS: Albumin Level 2.4 gm/dl (3.4-5.0); Bilirubin Direct 0.2 mg/dl (0-0.2); Creatinine Clr Calc Pharmacy 22.4 ml/min; Est GFR (African American) 26.2; Est GFR (Non-African American) 22.6
[2018-09-04 21:36] LABS: Bilirubin,Total 0.5 mg/dl (0.2-1); Total Protein 4.7 gm/dl (6.4-8.2)
--- NOTE | 2018-09-04 23:09 | Emergency Department Note ---
Entered by Nancy Henson acting as a scribe for Steve Connor DO History of Present Illness General Chief complaint: Diarrhea Stated complaint: DIARRHEA, NAUSEA- CHEMO PT FOR COLON CA Source: patient History of Present Illness Provider complaint: abdominal pain Onset (ago): day(s) 5 Location: abdomen Pain Consistency: + constant Maximum Pain Intensity: 6 Exacerbated By: + eating Associated symptoms: + nausea/vomiting and + other (+diarrhea); no fever/chills The patient is a 72 year old female who presents to the Emergency Room with complaints of persistent abdominal pain. The patient states that she has stage 3 colon cancer and had a mass taken out in the beginning of July. She reports that she had chemotherapy treatment on Saturday and he has been experiencing abdominal cramping since Saturday. She states that she also has nausea, diarrhea, and vomited once last night. She denies any fever or chills. She reports that her last bowel movement was prior to arrival. The patient notes that nausea medication did not alleviate her symptoms. She notes that she has a history of acute kidney injury, hypotension, and transaminitis. Home Medications Home Medications Medication Instructions Recorded Confirmed Type cholecalciferol (vitamin D3) 1,000 unit PO QAM 10/18/17 09/04/18 History [Vitamin D3] hydrochlorothiazide 25 mg PO QAM 10/18/17 09/04/18 History lisinopril 10 mg PO QAM 10/18/17 09/04/18 History multivitamin 1 tab PO QAM 10/18/17 09/04/18 History diphenhydramine HCl [Benadryl] 25 mg PO HS PRN 06/30/18 09/04/18 History ranitidine HCl [Zantac] 150 mg PO HS PRN 06/30/18 09/04/18 History apixaban 2.5 mg tablet 2.5 mg PO BID #180 tab 08/29/18 09/04/18 History febuxostat 80 mg tablet 80 mg PO QAM #90 tab 09/01/18 09/04/18 Rx tramadol 50 mg tablet 100 mg PO QID PRN #720 tab 09/01/18 09/04/18 Rx diphenoxylate-atropine 1 tab PO QID PRN 09/04/18 09/04/18 History gabapentin 300 mg PO TID 09/04/18 09/04/18 History ondansetron in 0.9 % sod chlor 8 mg IV UD 09/04/18 09/04/18 History Allergies Allergy/AdvReac Type Severity Reaction Status Date / Time celecoxib Allergy Severe FACIAL Verified 09/04/18 16:49 SWELLING, SOB, HIVES Past Med/Surg History Medical History Volume depletion (Acute) Acute gastroenteritis (Acute) Acute renal failure (Acute) Chemotherapy adverse reaction (Acute) Hypertension (Chronic) CKD (chronic kidney disease) stage 3, GFR 30-59 ml/min (Chronic) Factor 5 Leiden mutation, heterozygous (Chronic) On Eliquis for h/o DVT --CURRENTLY ON HOLD UNTIL PROCEDURES ARE DONE. Colon obstruction (Acute) At splenic flexure. Biopsy pending, felt likely cancerous. Neuropathy BILATERAL LEGS Adenocarcinoma of colon GERD (gastroesophageal reflux disease) OCCASIONAL. Gout History of DVT (deep vein thrombosis) On Eliquis. Obesity Osteoarthritis Surgical History S/P cholecystectomy H/O tubal ligation History of tooth extraction (Acute) H/O colonoscopy 06/26/18 [facility] History of colon resection 07/01/2018. GETA. MAC 3, grade 1 view. No issues. Family History Sister Family history of diabetes mellitus Mother Family history of diabetes mellitus Stroke syndrome Father Suicide Unknown Arthritis Social History Preferred Language: Luxembourger Communication Ability: Effective Visual Impairment: No Limitations Hearing Ability: Normal Drop Wire Builder Required: No Beliefs That Will Affect Care: Muslim Muslim Beliefs: Roman Catholic, [address] [place] [address] marital status: Current Living Situation: Spouse current occupational status: retired current occupation: Previous seamstress. Feels Safe at Home: Yes Smoking Status: Never smoker Do You Dip or Chew Tobacco: No Second Hand Exposure: No Hx Alcohol Use: No Hx Substance Use: No Review of Systems See HPI for pertinent positives & negatives. and A total of 10 systems reviewed and were otherwise negative Physical Exam Vital Signs Vital Signs - 24 hr 09/04/18 15:52 09/04/18 17:00 09/04/18 17:13 Temperature 36.6 C Temperature Source Oral Sepsis Recent Fever Within 48 Hours No Sepsis New/Unexplained Change in Mental Status No Sepsis Action Taken by Nursing No Action Required Pulse Rate 77 75 75 Pulse Rate [Apical] Pulse Rate from SpO2 Sensor Pulse Rhythm Regular Pulse Strength Normal Respiratory Rate 18 17 20 Respiratory Effort / Characteristics Non-Labored Spontaneous Respiratory Depth Normal Respiratory Pattern Regular Blood Pressure 92/56 L 107/53 L Blood Pressure [Right Arm] Blood Pressure Mean 68 71 Blood Pressure Mean [Right Arm] Blood Pressure Position Sitting Pulse Oximetry 100 Oxygen Delivery Method Room Air 09/04/18 17:15 09/04/18 17:22 09/04/18 17:30 Temperature Temperature Source Sepsis Recent Fever Within 48 Hours Sepsis New/Unexplained Change in Mental Status Sepsis Action Taken by Nursing Pulse Rate 79 78 Pulse Rate [Apical] 75 Pulse Rate from SpO2 Sensor 78 Pulse Rhythm Pulse Strength Respiratory Rate 19 20 22 Respiratory Effort / Characteristics Respiratory Depth Normal Respiratory Pattern Blood Pressure 114/53 L Blood Pressure [Right Arm] 107/53 L Blood Pressure Mean 73 Blood Pressure Mean [Right Arm] 71 Blood Pressure Position Pulse Oximetry 97 Oxygen Delivery Method Room Air 09/04/18 17:31 09/04/18 17:45 09/04/18 18:00 Temperature Temperature Source Sepsis Recent Fever Within 48 Hours Sepsis New/Unexplained Change in Mental Status Sepsis Action Taken by Nursing Pulse Rate 78 85 78 Pulse Rate [Apical] Pulse Rate from SpO2 Sensor Pulse Rhythm Pulse Strength Respiratory Rate 23 19 19 Respiratory Effort / Characteristics Respiratory Depth Respiratory Pattern Blood Pressure 131/62 Blood Pressure [Right Arm] Blood Pressure Mean 85 Blood Pressure Mean [Right Arm] Blood Pressure Position Pulse Oximetry Oxygen Delivery Method 09/04/18 18:01 09/04/18 18:15 Temperature Temperature Source Sepsis Recent Fever Within 48 Hours Sepsis New/Unexplained Change in Mental Status Sepsis Action Taken by Nursing Pulse Rate 79 77 Pulse Rate [Apical] Pulse Rate from SpO2 Sensor 79 Pulse Rhythm Pulse Strength Respiratory Rate 26 H 20 Respiratory Effort / Characteristics Respiratory Depth Respiratory Pattern Blood Pressure Blood Pressure [Right Arm] Blood Pressure Mean Blood Pressure Mean [Right Arm] Blood Pressure Position Pulse Oximetry Oxygen Delivery Method GENERAL: alert, ill-appearing, well nourished, disheveled, non-toxic, siting up in bed EYE EXAM: normal conjunctiva, PERRL and EOM's grossly intact OROPHARYNX: no exudate, no erythema, lips, buccal mucosa, and tongue normal and mucous membranes are dry NECK: supple, no nuchal rigidity, no adenopathy, non-tender LUNGS: Clear to auscultation. Normal chest wall mechanics HEART: no murmurs, S1 normal and S2 normal CHEST: Port located in upper left wall, accessed. ABDOMEN: abdomen soft, non-tender, normo-active bowel sounds, no masses, no rebound or guarding. BACK: Back is symmetrical on inspection and there is no deformity, no midline tenderness, no CVA tenderness. SKIN: no rashes and no bruising UPPER EXTREMITIES: upper extremities are grossly normal. LOWER EXTREMITIES: No pitting edema. NEURO EXAM: Normal sensorium, cranial nerves II-XII grossly intact, normal speec h, no gross weakness of arms, no gross weakness of legs. Course 1600: The patient was evaluated in room A4B, and a complete history and physical examination were performed. 1715: I reviewed the patient's case with Dr. Horan [facility] Hospitalist. He will evaluate the patient for further management. Consultations Consultation #1: Dr. Horan [facility] Hospitalist Time: 17:15 Administered Medications Apixaban (Eliquis) 2.5 mg PO BID SHALONDA Stop: 10/04/18 20:59 Last Admin: 09/04/18 21:31 Dose: 2.5 mg Documented by: [id number] Gabapentin (Neurontin) 300 mg PO TID SHALONDA Stop: 10/04/18 20:59 Last Admin: 09/04/18 20:33 Dose: 300 mg Documented by: [id number] Sodium Chloride (Nss 1000ml) 1,000 mls @ 150 mls/hr IV .Q6H40M SHALONDA Stop: 10/04/18 19:48 Last Admin: 09/04/18 20:33 Dose: 150 mls/hr Documented by: [id number] Tramadol HCl (Ultram) 100 mg PO QID PRN PRN Reason: pain Stop: 10/04/18 19:48 Last Admin: 09/04/18 20:40 Dose: 100 mg Documented by: [id number] Discontinued Medications Sodium Chloride (Nss 1000ml) 1,000 mls @ 999 mls/hr IV .Q1H1M ONE Stop: 09/04/18 17:05 Last Infusion: 09/04/18 17:22 Dose: 0 mls/hr Documented by: [id number] Admin: 09/04/18 16:10 Dose: 999 mls/hr Documented by: [id number] Sodium Chloride (Nss) 500 mls @ 999 mls/hr IV .Q31M ONE Stop: 09/04/18 17:44 Last Infusion: 09/04/18 18:34 Dose: 0 mls/hr Documented by: [id number] Admin: 09/04/18 17:21 Dose: 999 mls/hr Documented by: [id number] Medical Decision Making Differential Diagnosis Differential diagnosis includes but is not limited to gastritis, peptic ulcer disease, GERD, gallbladder disease, pancreatitis, small bowel obstruction, acute coronary syndrome, pericarditis, ischemic bowel, irritable bowel disease, irritable bowel syndrome, appendicitis, diverticulitis, malignancy, hernia, urinary tract infection, torsion, perforation, trauma, infectious. Medical Records Attestation: I reviewed the patient's medical records. Home Medications Current Medication List: was personally reviewed by me Laboratory Data Attestation: I reviewed the patient's lab results. Result diagrams: 09/04/18 20:53 09/04/18 20:53 Imaging Data Radiologist's Impression: Radiology results as stated below per my review and the radiologist's interpretation: CT abd pelvis wo con CT DOSE: 596.07 mGy.cm HISTORY: Pain abd pain sent for CT TECHNIQUE: Multiaxial CT images of the abdomen and pelvis were performed without contrast. A dose lowering technique was utilized adhering to the principles of ALARA. COMPARISON STUDY: 06/24/2018 FINDINGS: The lung bases are clear. Configuration of liver spleen and pancreas are unremarkable. Prior cholecystectomy. Kidneys are considered negative for hydronephrosis. Diffuse fatty replacement of the pancreas. Apparent interval postoperative changes involving the colon at the splenic f lexure consistent with a partial colonic resection. Minimal infiltrative change of the surrounding fat most likely a postoperative basis. Bowel pattern currently is nonobstructive. The colonic distention. The described is no longer seen. Several fluid-filled loops of small bowel suggesting ileus versus enteritis. IMPRESSION: 1. Operative changes consistent with an interval partial colectomy 2. Interval decompression of the previously described colonic distention. 3. Fluid-filled loops of small bowel suggesting nonobstructive ileus versus enteritis. 4. Prior cholecystectomy. The above report was generated using voice recognition software. It may contain grammatical, syntax or spelling errors. Electronically signed by: Adam White M.D. 09/04/2018 4:36 PM Blood Pressure Blood Pressure Findings: Low blood pressure Blood Pressure Disposition: further management by hospitalist TOYA Narrative Patient is a 72-year-old female with past medical history of colon cancer on chemotherapy with her last dose being this past Saturday who presents the ER from cancer clinic for persistent nausea associate with diarrhea and some vomiting. Blood work was reviewed as an outpatient and showed a chronic anemia. Patient did have acute kidney injury with a creatinine of 3 up from baseline about 1.8. CT abdomen pelvis showed no acute pathology. Patient was given IV fluids. She was updated bedside. Attempted to contact hematology oncology but was unsuccessful. Due to the acute kidney injury associate with persistent nausea and 16 mg of Zofran given prior to arrival along with Decadron patient family were updated bedside which was discussed with the hospitalist for observation. Impression & Plan Acute kidney injury, Diarrhea, Chemotherapy adverse reaction Discharge Plan Visit Data *Final* Discharge Date/Time: 09/04/18 19:18 Chief Complaint: Diarrhea Stated Complaint: DIARRHEA, NAUSEA- CHEMO PT FOR COLON CA ED Provider: Steve Connor Discharge Problem: Acute kidney injury, Diarrhea, Chemotherapy adverse reaction Patient Disposition: Admitted As Inpatient Discharge Instructions Interventions: ED Discharge Assessment Last Done: 09/04/18 19:18 Discharge Problem: Diarrhea Qualifiers: Diarrhea type: unspecified type Qualified Code(s): R19.7 - Diarrhea, unspecified The scribe's documentation has been prepared under my direction and personally reviewed by me in its entirety. I confirm that the note above accurately reflects all work, treatment, procedures, and medical decision making performed by me.
[2018-09-05] MEDS: SODIUM CHLORIDE 0.9% 1000ML 1,000 ML IV SCH (03:07)
[2018-09-05] MEDS: ONDANSETRON INJ 2 MG/ML 2 ML VIAL IV PRN ×3 (04:42→19:45)
[2018-09-05] MEDS: TRAMADOL HCL 50 MG TABLET PO PRN ×3 (04:55→21:03)
[2018-09-05] MEDS ORDERED: MoRPHine SULFATE 2 MG/ML CARP IV ONE (06:50)
[2018-09-05 07:24] LABS: BUN Creatinine Ratio 30.4 (10-20); Calcium 7.2 mg/dl (8.5-10.1); Creatinine Clr Calc Pharmacy 27.6 ml/min; Est GFR (African American) 33.8; Est GFR (Non-African American) 29.2; Potassium 2.9 mmol/L (3.5-5.1)
[2018-09-05] MEDS: APIXABAN 2.5 MG TAB PO SCH ×2 (09:37→21:08)
[2018-09-05] MEDS: GABAPENTIN 300 MG CAP PO SCH ×3 (09:38→21:08)
[2018-09-05] MEDS: MULTIVITAMIN TAB PO SCH (09:38)
[2018-09-05] MEDS: CHOLECALCIFEROL 1,000 UNITS TAB PO SCH (09:39)
[2018-09-05] MEDS: POTASSIUM CHLORIDE 40 MEQ in SODIUM CHLORIDE 0.9% 1000ML 1,000 ML IV SCH ×2 (10:18→20:22)
[2018-09-05] MEDS: POTASSIUM CHLORIDE / WTR 10 MEQ/100 ML PLCT IV SCH ×2 (13:30→14:45)
[2018-09-05] MEDS ORDERED: LOPERAMIDE HCL 2 MG CAP PO STA (15:04)
--- NOTE | 2018-09-05 16:03 | Hospitalist Progress Note ---
Date of Service September 05, 2018 Assessment & Plan (1) Acute renal failure: continue IV fluids Cr improved to 1.7 from 3.1 suggesting this is all pre-renal azotemia K is low, will replace Hold lisinopril and hydrochlorothiazide. Maya catheter placed for accurate UO measures, UO is more than adequate, will pull tomorrow, told RN (2) Hypokalemia: low at 2.7, likely from GI losses with diarrhea as well as BRITTANY 20mEq K riders given 40mEq of KCl added to fluids will repeat BMP in the morning (3) Heme positive stool: patient reported stools as almost ashen RN confirmed this, smelled like melena tested stool today, heme positive will consult [facility] GI, they performed colonoscopy this spring Hb was 10.2 which is her baseline will repeat tomorrow (4) Acute gastroenteritis: most likely infections CT showed enteritis, fluid filled small bowel says that she moves bowels almost immediately after eating will start some Imodium to help with diarrhea consult GI continue IV fluids to replace GI losses (5) Volume depletion: Hold diuretics. Administer IV fluids volume status improved today, Cr improving, making more urine (6) Chemotherapy adverse reaction: 5-FU and leucovorin chemotherapy may be causing the gastroenteritis symptoms however, Dr. Smith did not think this was the case at office visit, according to patient and her family (7) Factor 5 Leiden mutation, heterozygous: hold Eliquis with heme positive stool (8) HTN (hypertension): Hold lisinopril and hydrochlorothiazide BP stable off of them Subjective patient still having diarrhea nurses report that it is really foul smelling, appears dark will send for heme occult C diff negative, stool culture still pending reviewed labs, Hb stable, CR improved to 1.7 from 3.1 K is low at 2.7, will replace reviewed CT abd/pelvis, just shows small bowel enteritis updated family at the bedside will try imodium, working diagnosis is viral illness Review of Systems Review of Systems: All systems reviewed & are unremarkable except as noted in HPI & below Constitutional: + fatigue and + weakness; no fever and no sweats Gastrointestinal: + abdominal pain, + nausea and + diarrhea/loose stools; no vomiting, no constipation and no blood in stools Physical Exam Constitutional: WD/WN, vitals as above Eyes: PERRL, conjunctivae normal, anicteric sclerae ENMT: external ear and nose normal, oropharynx normal Neck: trachea midline, no thyromegaly Respiratory: normal respiratory effort, lungs clear to auscultation Cardiovascular: RRR, no murmur, no edema Gastrointestinal (Abdomen): Inspection/Auscultation: abdomen normal to inspection and normal bowel sounds; abdomen not distended Percussion/Palpation: + abdomen tender (minimally in epigastric region) and abdomen soft; no guarding and abdomen not rigid Musculoskeletal: no cyanosis or clubbing, extremities motor strength 5/5 Skin: no rashes, warm and dry Neurologic: patellar DTR's 2+ bilat, sensation intact and PERRL, EOMI, accommodation nl, no face palsy, no dysarthria Psychiatric: A+Ox3, euthymic affect Lymphatic: no cervical or axillary lymphadenopathy Results & Data Vital Signs (Past 12 Hours) Vital Signs Temp Pulse Resp BP Pulse Ox 09/05/18 15:38 36.5 C 77 19 134/64 100 09/05/18 07:37 36.5 C 74 19 134/54 L 99 Laboratory Results Laboratory Results - last 24 hr 09/04/18 09/04/18 09/05/18 20:53 20:53 06:22 WBC 2.90 L RBC 3.13 L Hgb 10.2 L Hct 29.8 L MCV 95.2 MCH 32.6 MCHC 34.2 RDW Std Deviation 49.6 H RDW Coeff of Zee 15.7 H Plt Count 170 MPV 9.1 Sodium 138 Potassium 2.9 L Chloride 111 H Carbon Dioxide 18 L Anion Gap 9.0 BUN 52 H Creatinine 2.11 H D 1.71 H D Est Cr Clr Drug Dosing 22.4 27.6 Est GFR ( Amer) 26.2 33.8 Est GFR (Non-Af Amer) 22.6 29.2 BUN/Creatinine Ratio 30.4 H Glucose 110 H Calcium 7.2 L Total Bilirubin 0.5 Direct Bilirubin 0.2 AST 41 H ALT 131 H Alkaline Phosphatase 75 Total Protein 4.7 L Albumin 2.4 L Ur Random Creatinine Ur Random Sodium 09/05/18 09/05/18 06:35 06:35 WBC RBC Hgb Hct MCV MCH MCHC RDW Std Deviation RDW Coeff of Zee Plt Count MPV Sodium Potassium Chloride Carbon Dioxide Anion Gap BUN Creatinine Est Cr Clr Drug Dosing Est GFR ( Amer) Est GFR (Non-Af Amer) BUN/Creatinine Ratio Glucose Calcium Total Bilirubin Direct Bilirubin AST ALT Alkaline Phosphatase Total Protein Albumin Ur Random Creatinine 77.8 Ur Random Sodium 108 Medications Administered Current Inpatient Medications Acetaminophen (Tylenol) 650 mg PO Q4H PRN PRN Reason: pain/fever Stop: 10/04/18 19:48 Last Admin: 09/05/18 01:35 Dose: 650 mg Documented by: Al Hydrox/Mg Hydrox/Simethicone (Maalox) 30 ml PO Q6H PRN PRN Reason: Dyspepsia Stop: 10/04/18 19:48 Apixaban (Eliquis) 2.5 mg PO BID [facility] Stop: 10/04/18 20:59 Last Admin: 09/05/18 09:37 Dose: 2.5 mg Documented by: Diphenhydramine HCl (Benadryl Capsule) 25 mg PO HS PRN PRN Reason: Sleep Stop: 10/04/18 19:48 Last Admin: 09/05/18 01:35 Dose: 25 mg Documented by: Gabapentin (Neurontin) 300 mg PO TID [facility] Stop: 10/04/18 20:59 Last Admin: 09/05/18 14:46 Dose: 300 mg Documented by: Heparin Sodium (Porcine) (Heparin Sod 100 Unit/Ml Flush) 5 ml FLUSH PRN PRN PRN Reason: Flush Stop: 10/05/18 06:29 Potassium Chloride 40 meq/ (Sodium Chloride) 1,020 mls @ 100 mls/hr IV .[id number] [facility] Stop: 10/05/18 08:59 Last Admin: 09/05/18 10:18 Dose: 100 mls/hr Documented by: Loperamide HCl (Imodium) 2 mg PO Q6 [facility] Stop: 10/05/18 17:59 Multivitamins (Multivitamin Tab) 1 tab PO QAM [facility] Stop: 10/05/18 08:59 Last Admin: 09/05/18 09:38 Dose: 1 tab Documented by: Ondansetron HCl (Zofran) 4 mg IV Q6H PRN PRN Reason: Nausea Stop: 10/04/18 19:48 Last Admin: 09/05/18 13:24 Dose: 4 mg Documented by: Ranitidine HCl (Zantac) 150 mg PO HS PRN PRN Reason: Acid Reflux Stop: 10/04/18 19:48 Tramadol HCl (Ultram) 100 mg PO QID PRN PRN Reason: pain Stop: 10/04/18 19:48 Last Admin: 09/05/18 14:54 Dose: 100 mg Documented by: Vitamin D (Vitamin D3) 1,000 units PO QAM SHALONDA Stop: 10/05/18 08:59 Last Admin: 09/05/18 09:39 Dose: 1,000 units Documented by: PG Care Time/CCT Total # of Minutes Spent Total Time Spent with Patient: Total time spent is greater than 50% in coordination of care (as documented) at patient's floor/unit and/or counseling patient:
[2018-09-05] MEDS: LOPERAMIDE HCL 2 MG CAP PO SCH ×2 (19:01→23:32)
[2018-09-05] MEDS ORDERED: MoRPHine SULFATE 2 MG/ML CARP IV STA (22:44)
[2018-09-06] MEDS: TRAMADOL HCL 50 MG TABLET PO PRN ×3 (03:25→16:07)
[2018-09-06] MEDS: LOPERAMIDE HCL 2 MG CAP PO SCH ×3 (06:20→17:34)
[2018-09-06] MEDS: POTASSIUM CHLORIDE 40 MEQ in SODIUM CHLORIDE 0.9% 1000ML 1,000 ML IV SCH ×2 (06:22→16:08)
[2018-09-06 06:51] LABS: Hematocrit (blood only) 29.7 % (37-47); Hemoglobin 9.9 g/dL (12.0-16.0); Lymphocytes # (auto) 1.18 K/uL (1.2-3.4); Lymphocytes % (auto) 36.3 %; Mean Corpuscular Hgb Conc 33.3 g/dL (32-36); Mean Corpuscular Volume 96.1 fL (80-100); Mean Platelet Volume 9.2 fL (7.4-10.4); Monocytes % (auto) 18.5 %; Neutrophils # (auto) 1.47 K/uL (1.4-6.5); Neutrophils % (auto) 45.2 %; Platelet Count 205 K/uL (130-400); RDW Coefficient of Variation 15.9 % (11.5-14.5); RDW Standard Deviation 50.8 fL (36.4-46.3); Red Blood Count 3.09 M/uL (4.2-5.4); White Blood Count 3.25 K/uL (4.8-10.8)
[2018-09-06 07:28] LABS: BUN Creatinine Ratio 37.3 (10-20); Calcium 7.8 mg/dl (8.5-10.1); Est GFR (Non-African American) 45.7; Potassium 3.4 mmol/L (3.5-5.1)
[2018-09-06] MEDS: GABAPENTIN 300 MG CAP PO SCH ×3 (09:31→20:46)
[2018-09-06] MEDS: CHOLECALCIFEROL 1,000 UNITS TAB PO SCH (09:31)
[2018-09-06] MEDS: MULTIVITAMIN TAB PO SCH (09:31)
--- NOTE | 2018-09-06 16:17 | Gastrointestinal Consultation ---
Date of Consultation September 06, 2018 Assessment & Plan (1) Acute gastroenteritis: Diarhea could be from infection--viral possible, check giardia ag, Cdiff neg, stool cx neg, other etiology is secondary to 5 FU, pancreas insufficiency can be etiology as noted by fatty pancreas so trial pancreas enzymes. continue imodium heme pos stool-hgb stable. no gross bleeding (stools brown)--no urgent need for endoscopy. elevated LFTS--trend could be med effect, viral process. History of Present Illness Reason for Consultation: gastrorenteritis, heme pos stool, CRC Requesting Physician: DR David Levy Attending Physician: Jaret Greenberg History of Present Illness cc abd pain, diarrhea HPI Reviewed chart colo 06/26/18 to splenic flexure mass noted bx adenoca, sigmoid diverticulosis. She had resection of CRC 07/01/18. She has stage III colorectal cancer and has been receiving 5 FU and Leukovorin. She has tolerated several rounds but several days after last round n/v, diarrhea. No melena nor bright red blood per rectum but heme pos stool. Pt is on Elliquis for factor V Leiden. She states stools less frequent on imodium. She has generalized abd cramping. CT a/p this admit fatty replacement of pancrease, post op changes splenic flexure, fluid fille SB. Cdiff neg, stool cx NGSF. Noted LFTs normal 08/29 then elevated 09/01 then better on 09/04. Allergies Allergy/AdvReac Type Severity Reaction Status Date / Time celecoxib Allergy Severe FACIAL Verified 09/04/18 16:49 SWELLING, SOB, HIVES Home Medications Home Medications Medication Instructions Recorded Confirmed Type cholecalciferol (vitamin D3) 1,000 unit PO QAM 10/18/17 09/04/18 History [Vitamin D3] hydrochlorothiazide 25 mg PO QAM 10/18/17 09/04/18 History lisinopril 10 mg PO QAM 10/18/17 09/04/18 History multivitamin 1 tab PO QAM 10/18/17 09/04/18 History diphenhydramine HCl [Benadryl] 25 mg PO HS PRN 06/30/18 09/04/18 History ranitidine HCl [Zantac] 150 mg PO HS PRN 06/30/18 09/04/18 History apixaban 2.5 mg tablet 2.5 mg PO BID #180 tab 08/29/18 09/04/18 History febuxostat 80 mg tablet 80 mg PO QAM #90 tab 09/01/18 09/04/18 Rx tramadol 50 mg tablet 100 mg PO QID PRN #720 tab 09/01/18 09/04/18 Rx diphenoxylate-atropine 1 tab PO QID PRN 09/04/18 09/04/18 History gabapentin 300 mg PO TID 09/04/18 09/04/18 History ondansetron in 0.9 % sod chlor 8 mg IV UD 09/04/18 09/04/18 History Patient History Medical History Volume depletion (Acute) Acute gastroenteritis (Acute) Acute renal failure (Acute) Chemotherapy adverse reaction (Acute) Hypertension (Chronic) CKD (chronic kidney disease) stage 3, GFR 30-59 ml/min (Chronic) Factor 5 Leiden mutation, heterozygous (Chronic) On Eliquis for h/o DVT --CURRENTLY ON HOLD UNTIL PROCEDURES ARE DONE. Colon obstruction (Acute) At splenic flexure. Biopsy pending, felt likely cancerous. Neuropathy BILATERAL LEGS Adenocarcinoma of colon GERD (gastroesophageal reflux disease) OCCASIONAL. Gout History of DVT (deep vein thrombosis) On Eliquis. Obesity Osteoarthritis Surgical History S/P cholecystectomy H/O tubal ligation History of tooth extraction (Acute) H/O colonoscopy 06/26/18 [facility] History of colon resection 07/01/2018. GETA. MAC 3, grade 1 view. No issues. Family History Sister Family history of diabetes mellitus Mother Family history of diabetes mellitus Stroke syndrome Father Suicide Unknown Arthritis Social History Preferred Language: Maori Communication Ability: Effective Visual Impairment: No Limitations Hearing Ability: Normal Science Manager Required: No Beliefs That Will Affect Care: Moravian Moravian Beliefs: Anabaptist, [address] [place] [address] marital status: Current Living Situation: Spouse current occupational status: retired current occupation: Previous seamstress. Feels Safe at Home: Yes Smoking Status: Never smoker Do You Dip or Chew Tobacco: No Second Hand Exposure: No Hx Alcohol Use: No Hx Substance Use: No Review of Systems Review of Systems: All systems reviewed & are unremarkable except as noted in HPI & below Physical Exam Constitutional: WD/WN, vitals as above Eyes: PERRL, conjunctivae normal, anicteric sclerae ENMT: external ear and nose normal, oropharynx normal Neck: normal visual inspection and trachea midline Respiratory: normal respiratory effort, lungs clear to auscultation Cardiovascular: RRR, no murmur, no edema Gastrointestinal (Abdomen): pos bs, soft, no guarding nor rebound Neurologic: PERRL, EOMI, accommodation nl, no face palsy, no dysarthria Psychiatric: A+Ox3, euthymic affect Results & Data Vital Signs (Past 12 Hours) Vital Signs Temp Pulse Resp BP Pulse Ox 09/06/18 15:40 36.5 C 76 19 167/70 H 99 09/06/18 07:34 36.3 C L 82 17 150/76 H 98
[2018-09-06] MEDS: PANCREAZE (LIPASE 10,500U) CAP PO SCH (17:35)
[2018-09-06] MEDS: MoRPHine SULFATE 5 MG/0.25 ML UDP PO PRN ×2 (17:45→21:58)
--- NOTE | 2018-09-06 21:20 | Hospitalist Progress Note ---
Date of Service September 06, 2018 Assessment & Plan (1) Acute renal failure: continue IV fluids Cr improved to normal levels suggesting this ispre-renal azotemia K is low, will replace Hold lisinopril and hydrochlorothiazide. will pull tee today (2) Hypokalemia: potassium remains low, but is closer to normal. will monitor. 40mEq of KCl added to fluids will repeat BMP in the morning (3) Heme positive stool: Stools appears to be melena as per nurse, GI was consulted. They state naik stool was brown, no urgent need to scope. (4) Acute gastroenteritis: most likely infections versus side effect of cancer treatment. CT showed enteritis, fluid filled small bowel says that she moves bowels almost immediately after eating Diarrhea appears to have improved with loperamide. consult GI continue IV fluids to replace GI losses (5) Volume depletion: Hold diuretics. Administer IV fluids volume status improved today, Cr improving, making more urine (6) Chemotherapy adverse reaction: 5-FU and leucovorin chemotherapy may be causing the gastroenteritis symptoms however, Dr. Smith did not think this was the case at office visit, according to patient and her family. Family and Gi requesting to consult hem/onc. (7) Factor 5 Leiden mutation, heterozygous: hold Eliquis with heme positive stool (8) HTN (hypertension): Hold lisinopril and hydrochlorothiazide BP stable Spent 35 minutes in management of patient. Subjective 72 yo female reports having abdominal pain. Patient states she is not having vomiting, nor diarrhea. But her hypogastric pain is moderate in intensity. Review of Systems Review of Systems: Constitutional-no fever or chills. Generalized weakness and lightheadedness ENT-no blurred vision, no double vision, no epistaxis, no sore throat Respiratory-no cough, no wheezing, no shortness of breath Cardiac-no palpitations, no chest pain, no syncope GI-nausea, vomiting, diarrhea. No hematemesis, melena, hematochezia -no urinary retention, no urinary incontinence, no dysuria, no hematuria Musculoskeletal-no joint pain, no muscle tenderness Skin-no bruising, no rashes, no pruritus Neuro-generalized weakness and lightheadedness. No syncope Psych-no depression, no anxiety Physical Exam Physical Exam: Constitutional: WD/WN, vitals as above Eyes: PERRL, conjunctivae normal, anicteric sclerae ENMT: external ear and nose normal, oropharynx normal Neck: trachea midline, no thyromegaly Respiratory: normal respiratory effort, lungs clear to auscultation Cardiovascular: RRR, no murmur, no edema Gastrointestinal (Abdomen): Inspection/Auscultation: abdomen normal to inspection and normal bowel sounds; abdomen not distended Percussion/Palpation: + abdomen tender (minimally in epigastric region) and abdomen soft; no guarding and abdomen not rigid Musculoskeletal: no cyanosis or clubbing, extremities motor strength 5/5 Skin: no rashes, warm and dry Neurologic: patellar DTR's 2+ bilat, sensation intact and PERRL, EOMI, accommodation nl, no face palsy, no dysarthria Psychiatric: A+Ox3, euthymic affect Lymphatic: no cervical or axillary lymphadenopathy Results & Data Vital Signs (Past 12 Hours) Vital Signs Temp Pulse Resp BP Pulse Ox 09/06/18 15:40 36.5 C 76 19 167/70 H 99 PG Care Time/CCT Total # of Minutes Spent Total Time Spent with Patient: Total time spent is greater than 50% in coordination of care (as documented) at patient's floor/unit and/or counseling patient:
[2018-09-06] MEDS: ONDANSETRON INJ 2 MG/ML 2 ML VIAL IV PRN (22:02)
[2018-09-07] MEDS: LOPERAMIDE HCL 2 MG CAP PO SCH ×5 (00:06→23:35)
[2018-09-07] MEDS: TRAMADOL HCL 50 MG TABLET PO PRN ×4 (00:06→22:27)
[2018-09-07] MEDS: MoRPHine SULFATE 5 MG/0.25 ML UDP PO PRN ×5 (02:08→22:24)
[2018-09-07] MEDS: POTASSIUM CHLORIDE 40 MEQ in SODIUM CHLORIDE 0.9% 1000ML 1,000 ML IV SCH (02:09)
[2018-09-07] MEDS ORDERED: HYDROmorphone INJ 0.5 MG/0.5 ML SYR IV STA ×2 (02:34→14:10)
[2018-09-07 06:08] LABS: Hematocrit (blood only) 29.3 % (37-47); Mean Corpuscular Hgb Conc 34.1 g/dL (32-36); Mean Corpuscular Volume 94.5 fL (80-100); Mean Platelet Volume 9.2 fL (7.4-10.4); Platelet Count 188 K/uL (130-400); RDW Coefficient of Variation 16.2 % (11.5-14.5); RDW Standard Deviation 50.7 fL (36.4-46.3); White Blood Count 2.71 K/uL (4.8-10.8)
[2018-09-07 06:26] LABS: INR 1.4 (0.9-1.1); Partial Thromboplastin Ratio 1.1; Partial Thromboplastin Time 28.5 Seconds (21.0-31.0)
[2018-09-07 06:27] LABS: Albumin Level 2.1 gm/dl (3.4-5.0); BUN Creatinine Ratio 35.7 (10-20); Calcium 7.7 mg/dl (8.5-10.1); Creatinine Clr Calc Pharmacy 47.7 ml/min; Est GFR (African American) 65.5; Est GFR (Non-African American) 56.5; Potassium 3.9 mmol/L (3.5-5.1)
[2018-09-07 06:30] LABS: Albumin Globulin Ratio 0.9 (0.9-2); Bilirubin,Total 0.5 mg/dl (0.2-1); Globulin 2.3 gm/dl (2.5-4.0); Total Protein 4.4 gm/dl (6.4-8.2)
[2018-09-07 06:44] LABS: Dohle Bodies 1+; Echinocytes 2+; Immature Granulocytes # (auto) 0.01 K/uL (0.00-0.02); Immature Granulocytes % (auto) 0.4 %; Lymphocytes % (auto) 25.8 %; Monocytes # (auto) 0.77 K/uL (0.11-0.59); Monocytes % (auto) 28.4 %; Neutrophils # (auto) 1.23 K/uL (1.4-6.5); Neutrophils % (auto) 45.4 %; Toxic Granulation 1+
[2018-09-07] MEDS: PANCREAZE (LIPASE 10,500U) CAP PO SCH ×3 (08:30→17:29)
[2018-09-07] MEDS: MULTIVITAMIN TAB PO SCH (08:31)
[2018-09-07] MEDS: GABAPENTIN 300 MG CAP PO SCH ×3 (08:31→19:57)
[2018-09-07] MEDS: CHOLECALCIFEROL 1,000 UNITS TAB PO SCH (08:31)
[2018-09-07 08:47] LABS: Base Excess VBG -7.2 mEq/L; HCO3 VBG 18 mmol/L; PCO2 VBG 35 mmHg (38-50); PO2 VBG 22 mmHg; pH VBG 7.33 (7.36-7.41)
[2018-09-07 09:19] LABS: Oxygen Saturation VBG < 60.0 %
[2018-09-07] MEDS ORDERED: LACTATED RINGER'S 1,000 ML IV SCH (09:30)
[2018-09-07] MEDS ORDERED: LOPERAMIDE HCL 2 MG CAP PO STA (09:37)
[2018-09-07] MEDS ORDERED: fentaNYL 12 MCG/HR TDSY TD SCH (09:45)
[2018-09-07] MEDS ORDERED: OCTREOTIDE ACETATE 100 MCG/ML VIAL SQ SCH (09:55)
--- NOTE | 2018-09-07 09:57 | Oncology Consultation ---
Date of Consultation September 07, 2018 Assessment & Plan (1) Acute gastroenteritis: She appears to be having diarrhea secondary to chemotherapy. It has been ongoing now for 2 weeks and correlates with treatment. She has no infectious symptoms and no sick contacts. Her stool cultures have so far been negative. High-dose 5-FU is a toxic regimen and commonly causes severe nausea and diarrhea. She is not responding to imodium so I would try adding Octreotide SC injections. We can start with 100 mcg q8 and titrate up as needed. We will also need to consider a change in her chemotherapy regimen, but I will discuss this with Dr. Smith. In the meantime, she is starting to become a bit acidotic, also likely related to the diarrhea. We will need to monitor her bicarb closely. Once the diarrhea starts to improve, this should as well. Present on Admission?: Yes History of Present Illness Reason for Consultation: Diarrhea Colon cancer Attending Physician: Jaret Greenberg History of Present Illness Ms. Melo is a 72 year old woman with a history of gout, HTN, CKD, and prior DVT. She was diagnosed with a stage III colon cancer in the spring. She underwent a partial colectomy on 07/02/18 and started adjuvant chemotherapy with high-dose 5-FU/leucovorin in July. Starting with her fourth week of treatment, she began to have severe nausea, vomiting, and profuse watery diarrhea. She has required supplemental IV fluids in our office a few times in that interim. She was sent to the ER on 09/04 with these symptoms and was found to have an BRITTANY with a creatinine of 3.1. She had stool cultures and C. diff testing that has been negative so far. Her BRITTANY has responded well to IV fluids but her diarrhea persists. She is having at least 3-4 watery bowel movements daily and had a very large episode just before I saw her. She has no sick contacts and has not had any fevers or chills. She was nauseous at home as well, though she's been eating less since she's been here and has not had as much vomiting. Allergies Allergy/AdvReac Type Severity Reaction Status Date / Time celecoxib Allergy Severe FACIAL Verified 09/04/18 16:49 SWELLING, SOB, HIVES Home Medications Home Medications Medication Instructions Recorded Confirmed Type cholecalciferol (vitamin D3) 1,000 unit PO QAM 10/18/17 09/04/18 History [Vitamin D3] hydrochlorothiazide 25 mg PO QAM 10/18/17 09/04/18 History lisinopril 10 mg PO QAM 10/18/17 09/04/18 History multivitamin 1 tab PO QAM 10/18/17 09/04/18 History diphenhydramine HCl [Benadryl] 25 mg PO HS PRN 06/30/18 09/04/18 History ranitidine HCl [Zantac] 150 mg PO HS PRN 06/30/18 09/04/18 History apixaban 2.5 mg tablet 2.5 mg PO BID #180 tab 08/29/18 09/04/18 History febuxostat 80 mg tablet 80 mg PO QAM #90 tab 09/01/18 09/04/18 Rx tramadol 50 mg tablet 100 mg PO QID PRN #720 tab 09/01/18 09/04/18 Rx diphenoxylate-atropine 1 tab PO QID PRN 09/04/18 09/04/18 History gabapentin 300 mg PO TID 09/04/18 09/04/18 History ondansetron in 0.9 % sod chlor 8 mg IV UD 09/04/18 09/04/18 History Patient History Medical History Volume depletion (Acute) Acute gastroenteritis (Acute) Acute renal failure (Acute) Chemotherapy adverse reaction (Acute) Hypertension (Chronic) CKD (chronic kidney disease) stage 3, GFR 30-59 ml/min (Chronic) Factor 5 Leiden mutation, heterozygous (Chronic) On Eliquis for h/o DVT --CURRENTLY ON HOLD UNTIL PROCEDURES ARE DONE. Colon obstruction (Acute) At splenic flexure. Biopsy pending, felt likely cancerous. Neuropathy BILATERAL LEGS Adenocarcinoma of colon GERD (gastroesophageal reflux disease) OCCASIONAL. Gout History of DVT (deep vein thrombosis) On Eliquis. Obesity Osteoarthritis Surgical History S/P cholecystectomy H/O tubal ligation History of tooth extraction (Acute) H/O colonoscopy 06/26/18 [facility] History of colon resection 07/01/2018. GETA. MAC 3, grade 1 view. No issues. Family History Sister Family history of diabetes mellitus Mother Family history of diabetes mellitus Stroke syndrome Father Suicide Unknown Arthritis Social History Preferred Language: Frisian Communication Ability: Effective Visual Impairment: No Limitations Hearing Ability: Normal Crane Rigger Required: No Beliefs That Will Affect Care: Taoist Taoist Beliefs: Orthodox, [address] [place] [address] marital status: Current Living Situation: Spouse current occupational status: retired current occupation: Previous seamstress. Feels Safe at Home: Yes Smoking Status: Never smoker Do You Dip or Chew Tobacco: No Second Hand Exposure: No Hx Alcohol Use: No Hx Substance Use: No Review of Systems Constitutional: + fatigue and + weight loss; no fever and no chills Eyes: no worsening vision Respiratory: no cough and no dyspnea Cardiovascular: no chest pain and no palpitations Gastrointestinal: as per Subjective / HPI Genitourinary: no dysuria Musculoskeletal: no back pain and no joint pain Integumentary: no rash Neurologic: + dizziness; no headache(s) Physical Exam Constitutional: + ill appearing; no acute distress Eyes: + anicteric sclerae and EOM intact bilaterally ENMT: external ear and nose normal, oropharynx normal Respiratory: normal respiratory effort, lungs clear to auscultation Cardiovascular: RRR, no murmur, no edema Gastrointestinal (Abdomen): Inspection/Auscultation: normal bowel sounds; abdomen not distended Percussion/Palpation: + abdomen tender (diffusely) and abdomen soft Skin: no rashes, warm and dry Psychiatric: A+Ox3, euthymic affect Results & Data Vital Signs (Past 12 Hours) Vital Signs Temp Pulse Resp BP Pulse Ox 09/07/18 08:55 36.9 C 81 20 132/67 95 09/07/18 04:07 36.3 C L 96 H 18 142/72 H 98 09/06/18 23:47 37.4 C 81 16 127/69 100 Laboratory Results Stool cultures and C diff toxin assay are negative. Laboratory Tests 09/07/18 09/07/18 05:50 05:50 WBC 2.71 L Hgb 10.0 L Plt Count 188 Carbon Dioxide 18 L Creatinine 0.99 Albumin 2.[address] A/P from 09/04: IMPRESSION: 1. Operative changes consistent with an interval partial colectomy 2. Interval decompression of the previously described colonic distention. 3. Fluid-filled loops of small bowel suggesting nonobstructive ileus versus enteritis. 4. Prior cholecystectomy.
--- NOTE | 2018-09-07 10:45 | XRay Report ---
KUB HISTORY: Right upper quadrant abdominal pain. COMPARISON: KUB 10/16/2017. Abdomen and pelvis CT 09/04/2018. FINDINGS: No dilated loops of small bowel identified. Mildly distended gas-filled transverse colon me asuring up to 9 cm in diameter. The stomach is also mildly distended. No renal calculi. No ureteral calculi. No pneumoperitoneum or pneumatosis. IMPRESSION: Mildly distended gas-filled transverse colon and stomach. This represent a mild ileus. No evidence fo r small bowel obstruction. Electronically signed by: Lito Vieira M.D. 09/07/2018 10:43 AM
[2018-09-07] MEDS: OCTREOTIDE ACETATE 100 MCG/ML VIAL SQ SCH ×2 (10:49→17:30)
--- NOTE | 2018-09-07 14:55 | Gastroenterology Progress Note ---
Date of Service September 07, 2018 Assessment & Plan (1) Acute gastroenteritis: Diarhea could be from infection--viral possible, giardia ag pending Cdiff neg, stool cx neg, pancreas insufficiency may be contributing so continue pancreas enzymes for now, oncology thinks most likely from 5 FU and started octreotide, advance to soft diet. abd pain--better but still present-KUB today mildly dilated TC and stomach. heme pos stool-hgb stable. no gross bleeding (stools brown)--no urgent need for endoscopy. elevated LFTS--trend could be med effect, viral process, resolved I am going off service tomorrow 09/08/[address] De La Cruz is assuming GI care then. Subjective cc f/u diarrhea HPI Pt seen by oncology who thinks diarrhea most likely from chemo and started Octreotide. Pts diarrhea seems improved and less abd pain at present. No bloody nor black stools. Review of Systems Respiratory: no dyspnea Cardiovascular: no chest pain Physical Exam Respiratory: normal respiratory effort, lungs clear to auscultation Cardiovascular: RRR, no murmur, no edema Gastrointestinal (Abdomen): pos bs, soft, no gaurding nor rebound. Results & Data Vital Signs (Past 12 Hours) Vital Signs Temp Pulse Resp BP Pulse Ox 09/07/18 08:55 36.9 C 81 20 132/67 95 09/07/18 04:07 36.3 C L 96 H 18 142/72 H 98
[2018-09-07] MEDS ORDERED: CHECK FENTANYL PATCH PLACEMENT SCH (16:00)
[2018-09-07] MEDS: LACTATED RINGER'S 1,000 ML IV SCH (17:30)
[2018-09-07] MEDS: HYDROmorphone INJ 0.5 MG/0.5 ML SYR IV PRN ×2 (19:56→23:35)
--- NOTE | 2018-09-07 22:42 | Hospitalist Progress Note ---
Date of Service September 07, 2018 Assessment & Plan (1) Acute renal failure: continue IV fluids Cr improved to normal levels suggesting this ispre-renal azotemia potassium improved. Hold lisinopril and hydrochlorothiazide. (2) Hypokalemia: potassium improved. Switched fluid to LR will repeat BMP in the morning (3) Heme positive stool: Stools appears to be melena as per nurse, GI was consulted. They state naik stool was brown, no urgent need to scope. (4) Acute gastroenteritis: most likely side effect of cancer treatment. CT showed enteritis, fluid filled small bowel says that she moves bowels almost immediately after eating Diarrhea still present, ordered increase of loperamide and started octreotide. Does not appear to be an overflow syndrome from an obstruction consult GI continue IV fluids to replace GI losses (5) Volume depletion: Hold diuretics. Administer IV fluids Likely from diarrhea induced from chemotherapy, on loperamide. increased to 4 mg PO Q6H and added octreotide 100 mg q8h. volume status improved today, Cr improving, making more urine (6) Chemotherapy adverse reaction: 5-FU and leucovorin chemotherapy may be causing the gastroenteritis symptoms however, Dr. Smith did not think this was the case at office visit, according to patient and her family. Family and Gi requesting to consult hem/onc. Dr. Tomlin feels that this medcine is playing a role in her pain and diarrhea. will monitor, ordered octreotide and increased loperamide on 09/07 No further imaging at this time given [address] SCANS. (7) Factor 5 Leiden mutation, heterozygous: hold Eliquis with heme positive stool (8) HTN (hypertension): Hold lisinopril and hydrochlorothiazide BP stable Spent 65 minutes in management of patient. Spent from 8:00 to 9:05 Subjective Patient seen in product/device technologist. Patient reports worsening of abdominal pain over course of the day. She states pain is generalized and is accompanied by loose stools. She reports she has had 4 BM in past 8 hours. She is asking for more pain medicine. Review of Systems Review of Systems: Constitutional-no fever or chills. Generalized weakness and lightheadedness ENT-no blurred vision, no double vision, no epistaxis, no sore throat Respiratory-no cough, no wheezing, no shortness of breath Cardiac-no palpitations, no chest pain, no syncope GI-nausea, vomiting, diarrhea. No hematemesis, melena, hematochezia -no urinary retention, no urinary incontinence, no dysuria, no hematuria Musculoskeletal-no joint pain, no muscle tenderness Skin-no bruising, no rashes, no pruritus Neuro-generalized weakness and lightheadedness. No syncope Psych-no depression, no anxiety Constitutional: + fatigue and + weakness; no fever and no sweats Gastrointestinal: + abdominal pain, + nausea and + diarrhea/loose stools; no vomiting, no constipation and no blood in stools Physical Exam Physical Exam: Constitutional: WD/WN, vitals as above Eyes: PERRL, conjunctivae normal, anicteric sclerae ENMT: external ear and nose normal, oropharynx normal Neck: trachea midline, no thyromegaly Respiratory: normal respiratory effort, lungs clear to auscultation Cardiovascular: RRR, no murmur, no edema Gastrointestinal (Abdomen): Inspection/Auscultation: abdomen normal to inspection and normal bowel sounds; abdomen not distended Percussion/Palpation: + abdomen tender (minimally in epigastric region) and abdomen soft; no guarding and abdomen not rigid Musculoskeletal: no cyanosis or clubbing, extremities motor strength 5/5 Skin: no rashes, warm and dry Neurologic: patellar DTR's 2+ bilat, sensation intact and PERRL, EOMI, accommodation nl, no face palsy, no dysarthria Psychiatric: A+Ox3, euthymic affect Lymphatic: no cervical or axillary lymphadenopathy Results & Data Vital Signs (Past 12 Hours) Vital Signs Temp Pulse Resp BP Pulse Ox 09/07/18 19:31 36.7 C 79 19 137/76 96 09/07/18 15:30 36.5 C 83 18 126/70 98 PG Care Time/CCT Total # of Minutes Spent Total Time Spent with Patient: Total time spent is greater than 50% in coordination of care (as documented) at patient's floor/unit and/or counseling patient: Prolonged Care Time Prolonged Care Time: Yes Total Prolonged Care Time: 65
[2018-09-08] MEDS: MoRPHine SULFATE 5 MG/0.25 ML UDP PO PRN ×3 (01:55→10:13)
[2018-09-08] MEDS: OCTREOTIDE ACETATE 100 MCG/ML VIAL SQ SCH ×3 (01:58→18:02)
[2018-09-08] MEDS: HYDROmorphone INJ 0.5 MG/0.5 ML SYR IV PRN ×4 (03:39→21:38)
[2018-09-08] MEDS: TRAMADOL HCL 50 MG TABLET PO PRN ×2 (05:02→11:03)
[2018-09-08] MEDS: LACTATED RINGER'S 1,000 ML IV SCH ×2 (05:05→18:02)
[2018-09-08] MEDS: LOPERAMIDE HCL 2 MG CAP PO SCH (06:04)
[2018-09-08 06:20] LABS: Hematocrit (blood only) 27.6 % (37-47); Hemoglobin 9.4 g/dL (12.0-16.0); Mean Corpuscular Hgb Conc 34.1 g/dL (32-36); Mean Corpuscular Volume 94.8 fL (80-100); Mean Platelet Volume 9.3 fL (7.4-10.4); Platelet Count 202 K/uL (130-400); RDW Coefficient of Variation 16.3 % (11.5-14.5); RDW Standard Deviation 51.6 fL (36.4-46.3); Red Blood Count 2.91 M/uL (4.2-5.4); White Blood Count 3.37 K/uL (4.8-10.8)
[2018-09-08 06:53] LABS: Albumin Level 1.9 gm/dl (3.4-5.0); BUN Creatinine Ratio 36.6 (10-20); Creatinine Clr Calc Pharmacy 49.8 ml/min; Est GFR (African American) 65.5; Est GFR (Non-African American) 56.5; Potassium 3.8 mmol/L (3.5-5.1)
[2018-09-08 06:55] LABS: Albumin Globulin Ratio 0.8 (0.9-2); Bilirubin,Total 0.3 mg/dl (0.2-1); Globulin 2.4 gm/dl (2.5-4.0); Total Protein 4.3 gm/dl (6.4-8.2)
[2018-09-08 07:23] LABS: Dohle Bodies 1+; Echinocytes 2+; Eosinophils # (auto) 0.01 K/uL (0-0.5); Eosinophils % (auto) 0.3 %; Immature Granulocytes # (auto) 0.02 K/uL (0.00-0.02); Immature Granulocytes % (auto) 0.6 %; Lymphocytes % (auto) 26.7 %; Monocytes # (auto) 0.87 K/uL (0.11-0.59); Monocytes % (auto) 25.8 %; Neutrophils # (auto) 1.57 K/uL (1.4-6.5); Neutrophils % (auto) 46.6 %; Toxic Granulation 1+
--- NOTE | 2018-09-08 08:20 | Progress Note ---
DATE: 09/08/2018 ONCOLOGY PROGRESS NOTE DIAGNOSES: 1. Intractable abdominal pain. 2. Acute renal failure. 3. Suspected gastroenteritis. 4. Colorectal cancer by history. 5. Status post high-dose 5-FU and leucovorin. SUBJECTIVE: Angela is a pleasant 72-year-old female patient of mine, currently under adjuvant chemotherapy (high-dose 5-FU and leucovorin) in the middle of her initial cycle. She is now on hospital day #4 with intractable abdominal pain. Initially, she had presented to our office with intractable diarrhea and cramping. The patient was given vigorous IV hydration and antiemetics. She was subsequently admitted to hospital for further workup. Radiographic surveillance so far has yielded some nonspecific dilation and air-filled loops of bowel, but no evidence of obstruction. The patient contends her appetite remains poor. Diarrhea has slowed, but she still has a dull ache periumbilical pain. No fever or chills are reported. Nursing reports no overnight difficulties. OBJECTIVE: GENERAL: Jaymie 72-year-old female in no acute distress. VITAL SIGNS: Temperature 37, pulse 82, respiratory rate 20, blood pressure 143/80. SKIN: Warm, dry, noncyanotic. HEENT: Oral mucosa without erythema or ulceration. HEART: Regular rate and rhythm. LUNGS: Clear to auscultation. ABDOMEN: Diffusely tender, but more tender around the umbilicus. Bowel sounds are silent. EXTREMITIES: Trace peripheral edema bilaterally. NEUROLOGIC: Grossly intact. LABORATORY DATA: WBC count 3370, hemoglobin 9.4, platelet count 202,000. Sodium 141, potassium 3.8, chloride 112, carbon dioxide 21, BUN 36, creatinine 0.99. RADIOGRAPHIC DATA: KUB performed yesterday shows mildly distended gas-filled transverse colon and stomach, thought to represent mild ileus. IMPRESSION: 1. Intractable abdominal pain. 2. Possible adynamic ileus. 3. Diarrhea. 4. Colorectal cancer. 5. Gastroenteritis. 6. Acute renal failure. PLAN: Angela is a pleasant 72-year-old female, in the midst of receiving her first course of high-dose 5-FU and leucovorin. At this point, I would expect effects of chemotherapy to wear off as she received her last dose well over a week ago. This regimen is not terribly nauseating or troublesome for that matter. Radiograph done presently suggests she may have an adynamic ileus and thus may want to incorporate a promotility agent, perhaps Reglan may be helpful. There does not appear to be an active obstruction. Obviously, I have to reconvene with Angela before moving forward with any further therapy. Would continue medical management as prescribed. I have nothing further to add and we will continue to monitor her during her stay. Appreciate the assistance in the care provided thus far for Ms. Melo.
[2018-09-08] MEDS: ONDANSETRON INJ 2 MG/ML 2 ML VIAL IV PRN (08:22)
[2018-09-08] MEDS: PANCREAZE (LIPASE 10,500U) CAP PO SCH (08:22)
[2018-09-08] MEDS: CHOLECALCIFEROL 1,000 UNITS TAB PO SCH (08:22)
[2018-09-08] MEDS: GABAPENTIN 300 MG CAP PO SCH ×3 (08:22→21:33)
[2018-09-08] MEDS: MULTIVITAMIN TAB PO SCH (08:22)
--- NOTE | 2018-09-08 11:21 | Hospitalist Progress Note ---
Date of Service September 08, 2018 Assessment & Plan (1) Ileus: At time of admission the patient had copious diarrhea thought 2nd to recent chemotherapy. Multiple agents were started including immodium, octreotide, and pancrease w/ meals. Now she has an ileus clinically & radiographically. Not passing any stool or gas. Would STOP the octreotide and scheduled pancrease/immodium. Keep K and mag wnl. Would cut diet and allow ice chips only. NG tube as last resort. Previous infectious w/u negative. Appreciate GI consult. (2) Diarrhea: Resolved. See "ileus" above. Present on Admission?: Yes (3) Acute kidney injury: Peak Cr 3, now <1. 2nd to volume depletion. BMP in am. Has CKD stage 3 at baseline. Present on Admission?: Yes (4) History of DVT (deep vein thrombosis): with known factor 5 Leiden mutation. has been off eliquis for several days. due to concern of GI bleeding earlier this stay? H/H stable. risks of being off anticoagulation are high. thus, start heparin infusion per protocol. Present on Admission?: Yes (5) Adenocarcinoma of colon: s/p hemicolectomy 2019. now on 5-FU and leucovorin. Appreciate heme/onc consultation. Present on Admission?: Yes (6) HTN (hypertension): Meds on hold due to recent BRITTANY and volume depletion. Cont to hold meds. Present on Admission?: Yes (7) CKD (chronic kidney disease) stage 3, GFR 30-59 ml/min: baseline CrCl <60 BMP in am for stability Present on Admission?: Yes (8) UTI (urinary tract infection): u/a suspicious for such. send culture. start rocephin daily. Present on Admission?: No (9) Gout: pt on uloric at home for prophylaxis. we do not have on formulary. I asked patient to bring from home and will resume. PT, OT evals ordered updated at bedside Subjective patient with minimal flatus passage. c/o abd bloating, pain, nausea. had emesis of clear liquid this am. no appetite. feels poorly overall. c/o urinary symptoms (dysuria). no diarrhea. no stool in days. Review of Systems Constitutional: + fatigue and + anorexia; no fever and no chills Respiratory: no cough and no dyspnea Cardiovascular: no chest pain Gastrointestinal: + abdominal pain, + belching, + bloating, + nausea and + vomiting; no blood in stools Physical Exam Constitutional: + ill appearing and + obese; no acute distress ENMT: external ear and nose normal, oropharynx normal Respiratory: normal respiratory effort, lungs clear to auscultation Cardiovascular: Rate/Rhythm: regular rate and regular rhythm Heart Sounds: normal S1 and normal S2; no murmur Vessels: posterior tibial pulses present and dorsalis pedis pulses present; no JVD Extremities: no edema Gastrointestinal (Abdomen): Inspection/Auscultation: + abdomen distended; + abnormal bowel sounds (decreased) Percussion/Palpation: + abdomen tender (upper abdomen); no guarding and no hepatosplenomegaly Psychiatric: A+Ox3, euthymic affect Results & Data Vital Signs (Past 12 Hours) Vital Signs Temp Pulse Resp BP Pulse Ox 09/08/18 07:23 37.0 C 82 20 143/80 H 96 09/08/18 03:38 36.5 C 100 H 18 150/72 H 99 Laboratory Results abd x-rays -- small and large bowel dilatation c/w ileus lipase wnl u/a - concerning for UTI urine cx dispatched PG Care Time/CCT Total # of Minutes Spent Total Time Spent with Patient: Total time spent is greater than 50% in coordination of care (as documented) at patient's floor/unit and/or counseling patient: (1) Diarrhea Diarrhea type: unspecified type Qualified Code(s): R19.7 - Diarrhea, unspecified (2) HTN (hypertension) Hypertension type: essential hypertension Qualified Code(s): I10 - Essential (primary) hypertension (3) UTI (urinary tract infection) Urinary tract infection type: site unspecified Hematuria presence: without hematuria Qualified Code(s): N39.0 - Urinary tract infection, site not specified (4) Gout Gout site: unspecified site Gout etiology: unspecified cause Chronicity: unspecified Qualified Code(s): M10.9 - Gout, unspecified
[2018-09-08] MEDS ORDERED: Heparin IV Standard *NO* Bolus IV SCH (12:00)
[2018-09-08 12:05] LABS: Bacteria Urine Automated 4+ (Negative); Epithelial Cell Urine Auto 0-5 /lpf (0-5); RBC Urine Automated 0-4 /hpf (0-4)
--- NOTE | 2018-09-08 12:20 | XRay Report ---
XR abdomen 2V w PA chest HISTORY: 72 years-old Female SBO vs ileus T generalized abdominal pain with distention COMPARISON: KUB 09/07/2018, CT abdomen and pelvis 09/04/2018, chest radiograph 07/31/2018. TECHNIQUE: PA view of the chest with erect and supine views of the abdomen FINDINGS: Cardiac mediastinal and hilar silhouettes are unremarkable. Stable positioning of the left subclavian [id number] catheter. No pneumothorax, pleural effusion or overt pulmonary edema. Degenerative ivan nges of the shoulders and spine. Multiple healed remote right-sided rib fractures. Distended transverse colon and stomach are redemonstrated with colonic air-fluid level. Transverse co william measures up to 8.0 cm transversely, slightly improved from comparison. Progressive Central abdomi nal small bowel dilation with air-fluid levels. No pneumatosis or pneumoperitoneum. No urolith. Degen erative changes of the spine, pelvis and hips. IMPRESSION: 1. Distended small and large bowel loops with air-fluid levels suggest ileus. Follow-up recommended. 2. No pneumatosis or pneumoperitoneum. The above report was generated using voice recognition software. It may contain grammatical, syntax o r spelling errors. Electronically signed by: Yehuda Day M.D. 09/08/2018 12:19 PM
--- NOTE | 2018-09-08 13:10 | Progress Note ---
DATE: 09/08/2018 SUBJECTIVE: The patient has stopped having diarrhea, probably from the Imodium that she has been taking. Her stool for C. diff and bacterial pathogens was negative. OBJECTIVE: She remains afebrile. Vital signs are normal. Electrolytes are normal. Her albumin, however, has dropped to 1.9, on ice chips. Abdomen shows midline abdominal incision which is pretty well healed from her surgery 2 months ago. There is some pain in the lower abdomen on palpation, however. IMPRESSION: The patient has abdominal pain, nausea, diarrhea from probably most likely her chemotherapy for colon cancer. At this point, I believe it is most likely reaction to the chemo and hopefully will resolve in a week or two. Consideration may be given to adjusting her dosing to reduce the effects during her next round. She is currently on ice chips and hopefully by tomorrow, we can advance her to clear-liquid diet. Once she is able to take a little bit more, we can give her a nutritional supplement to help boost her proteins.
[2018-09-08] MEDS: HEPARIN SODIUM/DEXTROSE 25,000 UNITS/500 ML BAG IV SCH ×2 (13:25→21:29)
[2018-09-08 14:05] LABS: Partial Thromboplastin Ratio 1.3; Partial Thromboplastin Time 36.5 Seconds (21.0-31.0)
[2018-09-08 14:53] LABS: Color Urine Yellow
[2018-09-08 14:54] LABS: Appearance Urine Slightly Cloudy (Clear); Glucose Urine UA Negative (Negative); Ketones Urine 1+ (Negative); Protein Urine 1+ (Negative); Specific Gravity Urine 1.025 (1.000-1.030); pH Urine 5.5 (4.5-7.5)
[2018-09-08 14:55] LABS: Bilirubin Urine Negative (Negative); Blood Urine Negative (Negative); Leukocyte Esterase Urine Trace (Negative); Nitrite Urine Positive (Negative); Urobilinogen Urine Negative (Negative)
[2018-09-08] MEDS ORDERED: cefTRIAXone SODIUM 2,000 MG in DEXTROSE 5% 50 ML IV SCH (16:00)
[2018-09-08] MEDS: cefTRIAXone SODIUM 2,000 MG in DEXTROSE 5% 50 ML IV SCH (18:11)
[2018-09-08 19:44] LABS: Partial Thromboplastin Ratio 3.8
[2018-09-08 20:04] LABS: Partial Thromboplastin Time 102.7 Seconds (21.0-31.0)
[2018-09-09 02:05] LABS: Hemoglobin 9.8 g/dL (12.0-16.0); Mean Corpuscular Hgb Conc 33.8 g/dL (32-36); Mean Platelet Volume 9.1 fL (7.4-10.4); Platelet Count 207 K/uL (130-400); RDW Coefficient of Variation 16.6 % (11.5-14.5); RDW Standard Deviation 51.8 fL (36.4-46.3); Red Blood Count 3.02 M/uL (4.2-5.4)
[2018-09-09 02:23] LABS: Albumin Level 1.8 gm/dl (3.4-5.0); BUN Creatinine Ratio 35.1 (10-20); Calcium 7.7 mg/dl (8.5-10.1); Creatinine Clr Calc Pharmacy 51.9 ml/min; Est GFR (African American) 68.9; Est GFR (Non-African American) 59.4; Potassium 3.6 mmol/L (3.5-5.1)
[2018-09-09 02:26] LABS: Albumin Globulin Ratio 0.6 (0.9-2); Bilirubin,Total 0.3 mg/dl (0.2-1); Globulin 2.8 gm/dl (2.5-4.0); Total Protein 4.6 gm/dl (6.4-8.2)
[2018-09-09 02:27] LABS: Partial Thromboplastin Ratio 4.4
[2018-09-09 02:31] LABS: Basophils # (auto) 0.01 K/uL (0-0.2); Basophils % (auto) 0.3 %; Dohle Bodies 1+; Echinocytes 1+; Eosinophils # (auto) 0.03 K/uL (0-0.5); Eosinophils % (auto) 0.9 %; Immature Granulocytes # (auto) 0.01 K/uL (0.00-0.02); Immature Granulocytes % (auto) 0.3 %; Lymphocytes % (auto) 30.3 %; Monocytes # (auto) 0.71 K/uL (0.11-0.59); Monocytes % (auto) 21.5 %; Neutrophils # (auto) 1.54 K/uL (1.4-6.5); Neutrophils % (auto) 46.7 %; Toxic Granulation 1+
[2018-09-09 02:33] LABS: Partial Thromboplastin Time 119.6 Seconds (21.0-31.0)
[2018-09-09] MEDS: LACTATED RINGER'S 1,000 ML IV SCH ×2 (06:15→19:44)
[2018-09-09] MEDS: CHOLECALCIFEROL 1,000 UNITS TAB PO SCH (08:41)
[2018-09-09] MEDS: GABAPENTIN 300 MG CAP PO SCH ×3 (08:41→20:34)
[2018-09-09] MEDS: MULTIVITAMIN TAB PO SCH (08:42)
[2018-09-09] MEDS: MoRPHine SULFATE 5 MG/0.25 ML UDP PO PRN ×2 (08:45→14:57)
--- NOTE | 2018-09-09 09:00 | Progress Note ---
DATE: 09/09/2018 ONCOLOGY PROGRESS NOTE DIAGNOSES: 1. Intractable abdominal pain. 2. Acute renal failure. 3. Suspected gastroenteritis. 4. Colorectal cancer. 5. Status post high dose 5-FU and leucovorin. 6. History of DVT, currently on anticoagulation. SUBJECTIVE: Angela was seen and examined at bedside. Abdominal pain has improved a little bit. Appetite is minimal and GI is recommending ice chips moving forward. Again, her abdominal symptomatology is somewhat mystery. Radiographs thus far revealed no evidence of obstruction. Perhaps, she is suffering from GI virus. She is far enough removed from chemotherapy at this point and I doubt there is a significant impact. Her renal function is slowly improving with IV hydration. She reports not moving her bowels over the past 24 hours. Nursing otherwise reports no overnight difficulties. OBJECTIVE: GENERAL: A very pleasant 72-year-old female, in no acute distress. VITAL SIGNS: Temperature 36.8, pulse 82, respiratory rate 20, blood pressure 119/70. SKIN: Without rash or lesion. HEENT: Oral mucosa without buccal lesions or ulcerations. HEART: Regular rate and rhythm. LUNGS: Clear to auscultation bilaterally. ABDOMEN: Much less tender today. Bowel sounds remain hypoactive. EXTREMITIES: No clubbing, cyanosis or edema. NEUROLOGIC: Grossly intact. LABORATORY DATA: WBC count 3300, hemoglobin 9.8, platelet count 207,000. PTT is 119.6 seconds, heparin presently on hold. Sodium 138, potassium 3.6, chloride 106, carbon dioxide 22, creatinine 0.95, BUN 33. Albumin 1.8. Urinalysis performed yesterday reveals 4+ bacteria, 10-30 WBCs and positive for leukocyte esterase. IMPRESSION: 1. Intractable abdominal pain. 2. Possible urinary tract infection. 3. Acute renal injury. 4. Intractable abdominal pain. 5. Hypoalbuminemia. 6. Colorectal cancer. 7. History of deep venous thrombosis, factor V Leiden mutation. PLAN: She was seen and examined this morning. Reviewed both the hospitalist and gum remover notes. I think her abdominal pain is slowly resolving. Her UA done yesterday suggests an underlying urinary tract infection. From an oncologic standpoint, she will remain off chemotherapy until medically stable. I will plan to reconvene with her within a week or so post-discharge. I have nothing to add and agree with current medical management otherwise. She needs to work on her nutritional status ____ protein intake to improve her albumin.
[2018-09-09 09:55] LABS: Partial Thromboplastin Ratio 3.8
[2018-09-09 09:57] LABS: Partial Thromboplastin Time 103.1 Seconds (21.0-31.0)
[2018-09-09] MEDS: HYDROmorphone INJ 0.5 MG/0.5 ML SYR IV PRN (12:02)
--- NOTE | 2018-09-09 13:54 | XRay Report ---
ABDOMEN 2 VIEWS HISTORY: ileus, interval change COMPARISON: Abdominal series 09/08/2018. FINDINGS: Multiple dilated gas-filled loops of large and small bowel are seen throughout the abdomen. There are associated small fluid levels. This is similar to the prior study. No pneumoperitoneum. No pneumatosis. Small amount of gas is seen within the rectum. Partially visualized left-sided Port-A-C ath terminates at the SVC. There is a surgical clip within the right upper quadrant. The transverse c olon measures up to 8 cm. IMPRESSION: No significant change in the distended gas and fluid-filled loops of large and small bowel seen throu ghout the abdomen. This may represent an ileus versus a distal partial small bowel obstruction. Electronically signed by: Lito Vieira M.D. 09/09/2018 1:53 PM
[2018-09-09] MEDS ORDERED: Nursing to Pharmacy Communication ONE (14:37)
[2018-09-09] MEDS: HEPARIN SODIUM/DEXTROSE 25,000 UNITS/500 ML BAG IV SCH (14:55)
[2018-09-09] MEDS: cefTRIAXone SODIUM 2,000 MG in DEXTROSE 5% 50 ML IV SCH (18:01)
[2018-09-09 18:12] LABS: Partial Thromboplastin Ratio 2.5
[2018-09-09 18:22] LABS: Partial Thromboplastin Time 68.4 Seconds (21.0-31.0)
--- NOTE | 2018-09-09 20:14 | Hospitalist Progress Note ---
Date of Service September 09, 2018 Assessment & Plan (1) Ileus: At time of admission the patient had copious diarrhea thought 2nd to recent chemotherapy. Multiple agents were started including immodium, octreotide, and pancrease w/ meals for the severe diarrhea. Now she has an ileus clinically & radiographically. Not passing any stool or gas. STOPPED octreotide and scheduled pancrease/immodium. Keep K and mag wnl. Cont NPO status; allow ice chips only. NG tube as last resort. Previous infectious w/u negative. Repeat x-rays today unchanged -- copious bowel dilatation in small/large bowel. Spoke with Dr De La Cruz from GI --- still believes that current clinical picture is function of her most recent chemotherapy. Cont supportive care. Low threshold for repeat CT abd/pelvis. (2) Diarrhea: Resolved. See "ileus" above. (3) Acute kidney injury: Peak Cr 3, now <1. 2nd to volume depletion. BMP in am for stability. Has CKD stage 3 at baseline. (4) History of DVT (deep vein thrombosis): with known factor 5 Leiden mutation. has been off eliquis for several days. due to concern of GI bleeding earlier this stay? DVT was several years ago. risks of being off anticoagulation are high given Factor 5 Leiden mutation. cont heparin infusion per protocol. resume eliquis once taking PO again. (5) Adenocarcinoma of colon: s/p hemicolectomy 2019. now on 5-FU and leucovorin. Appreciate heme/onc consultation and recommendations. (6) HTN (hypertension): Meds on hold due to recent BRITTANY and volume depletion. Cont to hold meds. BPs acceptable. (7) CKD (chronic kidney disease) stage 3, GFR 30-59 ml/min: baseline CrCl <60 BMP in am for stability (8) UTI (urinary tract infection): u/a suspicious for such. but culture never sent unfortunately. cont rocephin x 3 days then stop. (9) Gout: pt on uloric at home for prophylaxis. we do not have on formulary. I asked patient to bring from home and will resume. PT, OT evals appreciated. updated at bedside again today. Subjective no flatus no stool no nausea no emesis bloating/discomfort continues eating ice chips -- tolerating walked with PT today no new complaints -- just weakness at bedside Review of Systems Constitutional: no fever Respiratory: no dyspnea Cardiovascular: no chest pain Gastrointestinal: + abdominal pain and + bloating; no blood in stools Physical Exam Constitutional: + obese; no acute distress looks better today ENMT: external ear and nose normal, oropharynx normal Respiratory: normal respiratory effort, lungs clear to auscultation Cardiovascular: Rate/Rhythm: regular rate and regular rhythm Heart Sounds: normal S1 and normal S2; no murmur Vessels: posterior tibial pulses present and dorsalis pedis pulses present; no JVD Extremities: no edema Gastrointestinal (Abdomen): Inspection/Auscultation: + abdomen distended; + abnormal bowel sounds (decreased) Percussion/Palpation: abdomen nontender, no guarding and no hepatosplenomegaly rectal exam - performed with nurse safety patrol officer present -- liquid stool, no gross blood; no impaction; no masses. minimal amount of mucous mixed w/ stool. Psychiatric: A+Ox3, euthymic affect Results & Data Vital Signs (Past 12 Hours) Vital Signs Temp Pulse Resp BP BP Pulse Ox 09/09/18 19:00 36.6 C 81 19 127/64 96 09/09/18 15:36 36.6 C 83 18 125/72 95 09/09/18 11:02 36.4 C L 94 H 18 118/68 94 Laboratory Results BMP wnl abd x-rays today --- no change PG Care Time/CCT Total # of Minutes Spent Total Time Spent with Patient: Total time spent is greater than 50% in coordination of care (as documented) at patient's floor/unit and/or counseling patient: (1) UTI (urinary tract infection) Hematuria presence: without hematuria Urinary tract infection type: site unspecified Qualified Code(s): N39.0 - Urinary tract infection, site not specified (2) Gout Chronicity: unspecified Gout etiology: unspecified cause Gout site: unspecified site Qualified Code(s): M10.9 - Gout, unspecified (3) Diarrhea Diarrhea type: unspecified type Qualified Code(s): R19.7 - Diarrhea, unspecified (4) HTN (hypertension) Hypertension type: essential hypertension Qualified Code(s): I10 - Essential (primary) hypertension
[2018-09-09] MEDS: TRAMADOL HCL 50 MG TABLET PO PRN (20:30)
[2018-09-10] MEDS: MoRPHine SULFATE 5 MG/0.25 ML UDP PO PRN (00:58)
[2018-09-10] MEDS: ONDANSETRON INJ 2 MG/ML 2 ML VIAL IV PRN ×2 (01:02→05:52)
[2018-09-10 01:04] LABS: Partial Thromboplastin Ratio 2.8
--- NOTE | 2018-09-10 02:04 | Progress Note ---
DATE: 09/09/2018 SUBJECTIVE: The patient reports that she is not moving her bowels or passing gas today. Her Imodium and octreotide were stopped by Dr. Mccormick. She has been up and ambulated twice today. Her abdomen is little bit more distended on x-ray today. Despite this, she reports no abdominal pain. PHYSICAL EXAMINATION: VITAL SIGNS: Normal. ABDOMEN: Somewhat distended and tympanitic, but there is no localized tenderness. IMPRESSION: The patient continues to have what appears to be mucositis and a little bit of an ileus now, probably as a result of her chemotherapy for colon cancer. At this point, I agree with stopping her antidiarrheals and continue her on ice chips until she starts passing some gas. When she does admit, we can advance her to a clear liquid diet. I will continue to follow her.
[2018-09-10 06:20] LABS: Hematocrit (blood only) 24.5 % (37-47); Hemoglobin 8.5 g/dL (12.0-16.0); Mean Corpuscular Hgb Conc 34.7 g/dL (32-36); Mean Corpuscular Volume 94.6 fL (80-100); Mean Platelet Volume 9.3 fL (7.4-10.4); Platelet Count 219 K/uL (130-400); RDW Coefficient of Variation 17.1 % (11.5-14.5); RDW Standard Deviation 54.3 fL (36.4-46.3); Red Blood Count 2.59 M/uL (4.2-5.4); White Blood Count 5.34 K/uL (4.8-10.8)
[2018-09-10 06:57] LABS: Albumin Level 1.5 gm/dl (3.4-5.0); BUN Creatinine Ratio 33.8 (10-20); Calcium 7.3 mg/dl (8.5-10.1); Creatinine Clr Calc Pharmacy 68.2 ml/min; Est GFR (African American) 91.7; Est GFR (Non-African American) 79.1; Potassium 3.2 mmol/L (3.5-5.1)
[2018-09-10 06:59] LABS: Albumin Globulin Ratio 0.6 (0.9-2); Bilirubin,Total 0.2 mg/dl (0.2-1); Globulin 2.4 gm/dl (2.5-4.0); Total Protein 3.9 gm/dl (6.4-8.2)
[2018-09-10 07:18] LABS: Anisocytosis Present; Basophils # (auto) 0.01 K/uL (0-0.2); Basophils % (auto) 0.2 %; Dohle Bodies 1+; Eosinophils # (auto) 0.07 K/uL (0-0.5); Eosinophils % (auto) 1.3 %; Immature Granulocytes # (auto) 0.05 K/uL (0.00-0.02); Immature Granulocytes % (auto) 0.9 %; Lymphocytes # (auto) 1.57 K/uL (1.2-3.4); Lymphocytes % (auto) 29.4 %; Monocytes # (auto) 1.08 K/uL (0.11-0.59); Monocytes % (auto) 20.2 %; Neutrophils # (auto) 2.56 K/uL (1.4-6.5); Toxic Granulation 3+
[2018-09-10] MEDS: CHOLECALCIFEROL 1,000 UNITS TAB PO SCH (07:37)
[2018-09-10] MEDS: GABAPENTIN 300 MG CAP PO SCH ×3 (07:37→21:30)
[2018-09-10] MEDS: LACTATED RINGER'S 1,000 ML IV SCH (07:37)
[2018-09-10] MEDS: MULTIVITAMIN TAB PO SCH (07:37)
[2018-09-10 08:44] LABS: Partial Thromboplastin Ratio 2.2
[2018-09-10] MEDS ORDERED: SOD PHOSPHATE/SOD BIPHOSPHATE ENEMA 132 ML BTL PR STA (08:51)
[2018-09-10] MEDS ORDERED: METOCLOPRAMIDE HCL INJ 5 MG/ML 2 ML VIAL IV ONE (08:51)
[2018-09-10] MEDS ORDERED: D5NSS + 20MEQ KCL 20 MEQ/1,000 ML BAG IV SCH (09:00)
[2018-09-10] MEDS: POTASSIUM CHLORIDE / WTR 10 MEQ/100 ML PLCT IV SCH ×4 (09:10→21:01)
[2018-09-10 09:36] LABS: Partial Thromboplastin Time 59.8 Seconds (21.0-31.0)
[2018-09-10] MEDS: ALBUMIN 25% 50 ML IV SCH (11:36)
--- NOTE | 2018-09-10 14:14 | Progress Note ---
DATE: 09/10/2018 ONCOLOGY PROGRESS NOTE DIAGNOSES: 1. Intractable abdominal pain/ileus. 2. Acute renal injury. 3. Suspected gastroenteritis. 4. Colorectal cancer. 5. Status post high dose 5-FU and leucovorin. 6. History of deep venous thrombosis, currently on anticoagulation. SUBJECTIVE: Angela was seen and examined at bedside. She does not seem to be making further progress at this point. Informally, spoke with the managing hospitalist and he admitted her activity level has not been up to par. She is complaining of lower extremity swelling and told me she gained 10 pounds overnight. She continues to have minimal p.o. intake and is not passing flatus presently. Radiographic studies have been done throughout her stay, all negative for obstructive symptomatology. GI service argues chemotherapy; however, 5-FU and leucovorin generally does not make people sick to this extent. However, in DPD deficient individuals, severe toxicity can ensue. Perhaps enzyme analysis is in order, considering she is far removed from her last dose. Nursing reports no overnight difficulties otherwise. OBJECTIVE: GENERAL: The patient is awake, alert and appropriate, in no acute distress. VITAL SIGNS: Temperature 36.5, pulse 75, respiratory rate 16, blood pressure 143/78. SKIN: Without rash or lesion. HEENT: Oral mucosa without erythema or ulceration. HEART: Regular rate and rhythm. LUNGS: Clear to auscultation bilaterally. ABDOMEN: Obese, soft, nontender. Bowel sounds are hypoactive. EXTREMITIES: Lower extremity swelling, left greater than right. NEUROLOGIC: Grossly intact. LABORATORY DATA: WBC count 5340, hemoglobin 8.5, platelet count 219,000. Sodium 135, potassium 3.2, chloride 102, carbon dioxide 26, creatinine 0.75, BUN 25, albumin 1.5. IMPRESSION: 1. Severe hypoalbuminemia. 2. Intractable abdominal pain/ileus. 3. Acute renal injury (resolved). 4. Colorectal cancer. 5. History of deep vein thromboses factor V Leiden mutation. PLAN: I visited with Angela again at bedside. I am not impressed with her progress moving forward. Hospitalist service states the patient has not been terribly active and need to encourage ambulation with assistance. Took note of her albumin level again today and will replace with 25% humanized albumin. Perhaps, promotility agent may be in order as there is no evidence for obstruction. From an oncologic perspective, we will plan to reconvene with Angela and family members before returning to treatment. Additionally, I spoke to Dr. Mccormick about underlying DPD deficiency, which can result in severe toxicity in individuals receiving 5-fluorouracil. We will continue to follow Angela during her stay. Appreciate the hospitalist and consultants efforts with Angela.
--- NOTE | 2018-09-10 15:02 | Progress Note ---
DATE: 09/10/2018 SUBJECTIVE: The patient has not passed any stool or flatus despite Fleets enema and the dose of IV Reglan. PHYSICAL EXAMINATION: VITAL SIGNS: Her vital signs are normal. ABDOMEN: Her abdomen remains somewhat distended and a little bit tympanitic. There is some mild tenderness throughout the abdomen without any localizing signs. IMPRESSION: The patient has what appears to be an ileus. At this point, if she does not have any bowel movements overnight, I would recommend placing a nasogastric tube tomorrow to help decompress her intestinal tract.
[2018-09-10] MEDS: cefTRIAXone SODIUM 2,000 MG in DEXTROSE 5% 50 ML IV SCH (18:08)
[2018-09-10 18:17] LABS: Hematocrit (blood only) 26.6 % (37-47); Hemoglobin 8.9 g/dL (12.0-16.0)
[2018-09-10 18:27] LABS: Potassium 3.3 mmol/L (3.5-5.1)
[2018-09-10 18:29] LABS: Magnesium 1.6 mg/dl (1.8-2.4)
[2018-09-10] MEDS: MAGNESIUM SULFATE / D5W 1 GM/100 ML BAG IV SCH ×2 (19:56→21:00)
--- NOTE | 2018-09-10 20:02 | Hospitalist Progress Note ---
Date of Service September 10, 2018 Assessment & Plan (1) Ileus: ONGOING. NO IMPROVEMENT. NO response to enema today or 1 dose of IV reglan. At time of admission the patient had copious diarrhea thought 2nd to recent chemotherapy. Multiple agents were started including immodium, octreotide, and pancrease w/ meals for the severe diarrhea. STOPPED octreotide and scheduled pancrease/immodium. Keep K and mag wnl. Cont NPO status; allow ice chips only. NG tube tomorrow if no improvement. Will repeat x-rays in am; repeat CT to ensure not developing true SBO?? etiology of ileus?? Previous infectious w/u negative. appreciate Dr De La Cruz's consultation and recommendations. (2) Diarrhea: Resolved. See "ileus" above. (3) Acute kidney injury: Peak Cr 3, now <1. 2nd to volume depletion. BMP in am for stability. Has CKD stage 3 at baseline. (4) History of DVT (deep vein thrombosis): with known factor 5 Leiden mutation. had been off eliquis for several days. DVT was several years ago. risks of being off anticoagulation are high given Factor 5 Leiden mutation. cont heparin infusion per protocol. resume eliquis once taking PO again. (5) Adenocarcinoma of colon: s/p hemicolectomy 2019. now on 5-FU and leucovorin. Appreciate heme/onc consultation and recommendations. Dr Smith recommends checking DPD gene mutation. If DPD is abnormal she would be vulnerable to ill effects of 5FU treatment. No evidence of recurrence or progression on recent CT abd/pelvis. (6) HTN (hypertension): Meds on hold due to recent BRITTANY and volume depletion. Cont to hold meds. BPs acceptable. (7) CKD (chronic kidney disease) stage 3, GFR 30-59 ml/min: baseline CrCl <60 BMP in am for stability (8) UTI (urinary tract infection): u/a suspicious for such. culture neg however. received rocephin x 3. will stop after today's dose. (9) Gout: pt on uloric at home for prophylaxis. we do not have on formulary. I asked patient to bring from home and will resume today. (10) Hypokalemia: due to lack of oral intake. replace IV, repeat level in AM. will make ileus worse. (11) Hypomagnesemia: due to lack of oral intake. replace IV. repeat level in am. will make ileus worse. (12) Hypoalbuminemia: severe. due to lack of nutrition pre-hospitalization and during this stay. albumin IV ordered by Dr Smith. if unable to take nutrition by mouth next 24-36 hours then consider parenteral nutrition. updated daughter, Skylar, by phone today answered all questions PT/OT (13) Weight gain: marked weight gain this admission due to copious IV fluids and 3rd spacing from low albumin stop fluids tonight will ultimately need some diuresis Subjective patient was sitting on commode when I came to see her today. she said "I don't feel well." she reported poor sleep last night. still no passage of flatus. no vomiting however and still tolerating ice chips. updated daughter by phone tonight (Skylar). updated today briefly at bedside. Review of Systems Constitutional: + fatigue and + weakness; no fever and no chills Respiratory: no dyspnea Cardiovascular: no chest pain Gastrointestinal: + abdominal pain, + bloating and + nausea; no vomiting and no excessive flatulence Genitourinary: no dysuria Physical Exam Constitutional: + obese; no acute distress looks tired ENMT: external ear and nose normal, oropharynx normal Respiratory: normal respiratory effort, lungs clear to auscultation Auscultation: + diminished lung sounds (bases) Cardiovascular: Rate/Rhythm: regular rate and regular rhythm Heart Sounds: normal S1 and normal S2; no murmur Vessels: posterior tibial pulses present and dorsalis pedis pulses present; no JVD Extremities: + edema (1+ b/l) Gastrointestinal (Abdomen): Inspection/Auscultation: + abdomen distended; + abnormal bowel sounds (decreased still but modestly improved today relative to yesterday's exam) Percussion/Palpation: abdomen nontender, no guarding and no hepatosplenomegaly Psychiatric: Orientation: alert, oriented to person and oriented to place; + not oriented to time Affect: + constricted affect Results & Data Vital Signs (Past 12 Hours) Vital Signs Temp Pulse Resp BP Pulse Ox 09/10/18 18:50 36.6 C 77 18 127/72 97 09/10/18 14:45 36.6 C 75 18 131/73 97 09/10/18 11:30 36.6 C 73 16 145/76 H 96 Laboratory Results Laboratory Results - last 24 hr 09/10/18 09/10/18 09/10/18 00:31 05:23 05:23 WBC 5.34 RBC 2.59 L Hgb 8.5 L Hct 24.5 L MCV 94.6 MCH 32.8 MCHC 34.7 RDW Std Deviation 54.3 H RDW Coeff of Zee 17.1 H Plt Count 219 MPV 9.3 Immature Gran % (Auto) 0.9 Neut % (Auto) 48.0 Lymph % (Auto) 29.4 [place] % (Auto) 20.2 Eos % (Auto) 1.3 Baso % (Auto) 0.2 Immature Gran # (Auto) 0.05 H Neut # (Auto) 2.56 Lymph # (Auto) 1.57 [place] # (Auto) 1.08 H Eos # (Auto) 0.07 Baso # (Auto) 0.01 Toxic Granulation 3+ Dohle Bodies 1+ Anisocytosis Present APTT 77.0 H* PTT Ratio 2.8 Sodium 135 L Potassium 3.2 L Chloride 102 Carbon Dioxide 26 Anion Gap 7.0 BUN 25 H Creatinine 0.75 Est Cr Clr Drug Dosing 68.2 Est GFR ( Amer) 91.7 Est GFR (Non-Af Amer) 79.1 BUN/Creatinine Ratio 33.8 H Glucose 87 Calcium 7.3 L Magnesium Total Bilirubin 0.2 AST 15 ALT 25 Alkaline Phosphatase 52 Total Protein 3.9 L Albumin 1.5 L Globulin 2.4 L Albumin/Globulin Ratio 0.6 L Miscellaneous Test 09/10/18 09/10/18 09/10/18 08:05 10:59 17:58 WBC RBC Hgb 8.9 L Hct 26.6 L MCV MCH MCHC RDW Std Deviation RDW Coeff of Zee Plt Count MPV Immature Gran % (Auto) Neut % (Auto) Lymph % (Auto) [place] % (Auto) Eos % (Auto) Baso % (Auto) Immature Gran # (Auto) Neut # (Auto) Lymph # (Auto) [place] # (Auto) Eos # (Auto) Baso # (Auto) Toxic Granulation Dohle Bodies Anisocytosis APTT 59.8 H* PTT Ratio 2.2 Sodium Potassium Chloride Carbon Dioxide Anion Gap BUN Creatinine Est Cr Clr Drug Dosing Est GFR ( Amer) Est GFR (Non-Af Amer) BUN/Creatinine Ratio Glucose Calcium Magnesium Total Bilirubin AST ALT Alkaline Phosphatase Total Protein Albumin Globulin Albumin/Globulin Ratio Miscellaneous Test Pending 09/10/18 17:58 WBC RBC Hgb Hct MCV MCH MCHC RDW Std Deviation RDW Coeff of Zee Plt Count MPV Immature Gran % (Auto) Neut % (Auto) Lymph % (Auto) [place] % (Auto) Eos % (Auto) Baso % (Auto) Immature Gran # (Auto) Neut # (Auto) Lymph # (Auto) [place] # (Auto) Eos # (Auto) Baso # (Auto) Toxic Granulation Dohle Bodies Anisocytosis APTT PTT Ratio Sodium Potassium 3.3 L Chloride Carbon Dioxide Anion Gap BUN Creatinine Est Cr Clr Drug Dosing Est GFR ( Amer) Est GFR (Non-Af Amer) BUN/Creatinine Ratio Glucose Calcium Magnesium 1.6 L Total Bilirubin AST ALT Alkaline Phosphatase Total Protein Albumin Globulin Albumin/Globulin Ratio Miscellaneous Test PG Care Time/CCT Total # of Minutes Spent Total Time Spent with Patient: Total time spent is greater than 50% in coordination of care (as documented) at patient's floor/unit and/or counseling patient: (1) UTI (urinary tract infection) Hematuria presence: without hematuria Urinary tract infection type: site unspecified Qualified Code(s): N39.0 - Urinary tract infection, site not specified (2) Gout Chronicity: unspecified Gout etiology: unspecified cause Gout site: unspecified site Qualified Code(s): M10.9 - Gout, unspecified (3) Diarrhea Diarrhea type: unspecified type Qualified Code(s): R19.7 - Diarrhea, unspecified (4) HTN (hypertension) Hypertension type: essential hypertension Qualified Code(s): I10 - Essential (primary) hypertension
[2018-09-11] MEDS: HEPARIN SODIUM/DEXTROSE 25,000 UNITS/500 ML BAG IV SCH ×2 (00:16→05:37)
[2018-09-11 05:56] LABS: Hematocrit (blood only) 25.5 % (37-47); Hemoglobin 8.7 g/dL (12.0-16.0); Mean Corpuscular Hgb Conc 34.1 g/dL (32-36); Mean Corpuscular Volume 95.1 fL (80-100); Platelet Count 225 K/uL (130-400); RDW Coefficient of Variation 17.4 % (11.5-14.5); RDW Standard Deviation 56.9 fL (36.4-46.3); Red Blood Count 2.68 M/uL (4.2-5.4); White Blood Count 6.59 K/uL (4.8-10.8)
[2018-09-11 06:25] LABS: ALC (manual) 1.03 K/uL (1.2-3.4); Dohle Bodies 2+; Eosinophils # (manual) 0.06 K/uL (0-0.5); Eosinophils % (manual) 0.9 %; Lymphocytes # (manual) 1.03 K/uL (1.2-3.4); Lymphocytes % (manual) 15.7 %; Monocytes # (manual) 0.46 K/uL (0.11-0.59); Neutrophils % (manual) 76.4 %; Toxic Granulation 3+
[2018-09-11 06:29] LABS: Albumin Level 1.7 gm/dl (3.4-5.0); BUN Creatinine Ratio 24.9 (10-20); Calcium 7.4 mg/dl (8.5-10.1); Creatinine Clr Calc Pharmacy 68.4 ml/min; Est GFR (African American) 91.7; Est GFR (Non-African American) 79.1; Magnesium 1.8 mg/dl (1.8-2.4); Potassium 3.3 mmol/L (3.5-5.1)
[2018-09-11 06:32] LABS: Albumin Globulin Ratio 0.7 (0.9-2); Bilirubin,Total 0.4 mg/dl (0.2-1); Globulin 2.3 gm/dl (2.5-4.0)
--- NOTE | 2018-09-11 08:11 | XRay Report ---
XR abdomen min 2V CLINICAL HISTORY: ileus, interval change COMPARISON STUDY: 12/10/2018 FINDINGS: There are persistent dilated small bowel loops. There is gas present within the right and t ransverse colon. There is a possibility of left colonic gas. No free air is visualized. IMPRESSION: 1. No free air 2. Abnormal bowel gas pattern with gaseous distention of small bowel and colonic loops to the level o f the mid transverse colon. There is a paucity of left colonic gas. A partial obstruction at the leve l of the mid transverse colon cannot be excluded Electronically signed by: Nick Wyman M.D. 09/11/2018 8:10 AM
[2018-09-11] MEDS: CHOLECALCIFEROL 1,000 UNITS TAB PO SCH (08:48)
[2018-09-11] MEDS: ALBUMIN 25% 50 ML IV SCH (08:49)
[2018-09-11] MEDS: MULTIVITAMIN TAB PO SCH (08:49)
[2018-09-11] MEDS: GABAPENTIN 300 MG CAP PO SCH ×3 (08:49→20:36)
--- NOTE | 2018-09-11 09:46 | Progress Note ---
DATE: 09/11/2018 DIAGNOSES: 1. Intractable abdominal pain/ileus. 2. Acute renal injury. 3. Suspected gastroenteritis. 4. Colorectal cancer. 5. Status post high dose 5-FU and leucovorin. 6. History of deep vein thrombosis, currently on anticoagulation. SUBJECTIVE: Angela was visited again at bedside. Now complaining of both left and right upper quadrant pain, she describes as a "squeezing" sensation. I had recommended supplemental albumin yesterday which was given. Albumin level improved to 1.7 this morning. She continues to be devoid of a bowel movement or flatus. Reviewed hospitalist's note and agree decompression with NG tube may be indicated. Nursing reports no overnight difficulties. The patient denies fever or chills overnight. PHYSICAL EXAMINATION: GENERAL: Morbidly obese 72-year-old female in no acute distress. VITAL SIGNS: Temperature 36.6, pulse 75, respiratory rate 20, blood pressure 148/76. SKIN: Without rash or lesion. HEENT: Oral mucosa without erythema or ulceration. HEART: Regular rate and rhythm. LUNGS: Clear to auscultation bilaterally. ABDOMEN: Soft, nontender, nondistended. EXTREMITIES: 2+ peripheral edema bilaterally. NEUROLOGIC: Grossly intact. LABORATORY DATA: WBC count 6590, hemoglobin 8.7, platelet count 225,000. PTT 59.8 seconds, currently on heparin drip. Sodium 135, potassium 3.3, chloride 101, carbon dioxide 25, creatinine 0.75, BUN 19, albumin 1.7. IMPRESSION: 1. Intractable abdominal pain/ileus. 2. Severe hypoalbuminemia. 3. Acute renal injury. 4. Colorectal cancer. 5. History of deep vein thrombosis, factor V Leiden mutation. PLAN: Angela is making minimal progress if at all. Unfortunately, we have failed to unlocked mystery regarding her persistent abdominal pain. She is far removed from her chemotherapy dosing that I do not believe this is impacting her condition overall. I asked Dr. Mccormick to check Angela for DPD enzyme levels. Obviously, she is in no condition to resume any form of chemotherapy until she stabilizes medically. Agree with possible decompression by NG tube to get her bowels moving. Radiographs thus far have shown no indication that she suffers from obstruction. Promotility agents were attempted to no effect. She will continue to receive daily albumin until nutritional status is improved. We will continue to follow the patient periodically throughout her stay.
[2018-09-11] MEDS: MAGNESIUM SULFATE / D5W 1 GM/100 ML BAG IV SCH ×2 (09:50→10:49)
[2018-09-11] MEDS: POTASSIUM CHLORIDE / WTR 10 MEQ/100 ML PLCT IV SCH ×2 (12:29→14:50)
--- NOTE | 2018-09-11 13:21 | XRay Report ---
SINGLE VIEW CHEST CLINICAL HISTORY: Enteric tube placement. FINDINGS: 2 AP, portable, upright chest radiographs are compared to study dated 09/08/2018 and correla elza with chest CT dated 09/16/2016. The examination is degraded by portable technique and patient rotat ion. An enteric tube has been placed. The tip projects below the diaphragm over the proximal stomach. A left subclavian central venous infusion port is unchanged in position. Heart is enlarged and there is atherosclerotic calcification of the thoracic aorta. The pulmonary vasculature is noncongested. S carring/atelectasis is noted at the lung bases. No large pleural effusion or pneumothorax is seen. Th e skeletal structures are osteopenic. There are healed right-sided rib fractures. Degenerative change is noted in the shoulders and thoracic spine. Cholecystectomy clips are seen in the right upper quad rant. IMPRESSION: 1. An enteric tube has been placed as above. 2. Cardiac enlargement with no active disease in the chest. Electronically signed by: Francis Hodges M.D. 09/11/2018 1:05 PM
[2018-09-11 14:06] LABS: Partial Thromboplastin Ratio 1.7
--- NOTE | 2018-09-11 14:50 | Gastroenterology Progress Note ---
Date of Service September 11, 2018 Assessment & Plan (1) Acute gastroenteritis: Diarhea initially now ileus Ileus vs partial obstruction---supportive care, NG suction, appreciate surgical consult, unclear etiology. Was on Imodium and octreotide which can slow gut down. Duplex mesenteric and portal/hepatic vein studies ordered to look for clots and ischemia. WBC and CO2 normal this am so doubt acute ischemia. abd pain--ongoing heme pos stool-hgb stable. no gross bleeding (stools brown)--no urgent need for endoscopy. elevated LFTS--trend could be med effect, viral process, resolved Subjective cc f/u abd pain HPI On admit diarrhea and currently ileus pattern. Do not see note yet but per patient, Dr Ridley saw patient and not need for surgical intervention. NG places at 1100 and per nursing about 800 mg output. Initial improvement in abd pain but currently increased (periumbilical). KUB today report distension SB and colo to level of TC. Review of Systems Respiratory: no dyspnea Cardiovascular: no chest pain Physical Exam Constitutional: WD/WN, vitals as above Respiratory: normal respiratory effort, lungs clear to auscultation Cardiovascular: RRR, no murmur, no edema Gastrointestinal (Abdomen): pos, mildly distended an tympanitic, no guarding nor rebound Psychiatric: A+Ox3, euthymic affect Results & Data Vital Signs (Past 12 Hours) Vital Signs Temp Pulse Resp BP Pulse Ox 09/11/18 08:50 78 20 131/78 96 09/11/18 07:14 36.6 C 75 20 148/76 H 96 09/11/18 03:10 36.6 C 78 20 127/73 95
[2018-09-11] MEDS ORDERED: Nursing to Pharmacy Communication ONE (15:13)
[2018-09-11] MEDS ORDERED: HEPARIN IV BOLUS 2,000 UNITS in SYRINGE 0 ML IV ONE (15:30)
--- NOTE | 2018-09-11 15:36 | Surgery Consultation ---
Date of Consultation September 11, 2018 Assessment & Plan (1) Hypoalbuminemia: Ileus, multifactorial. Had chemo before symptoms began, then treated with Imodium. Albumin 1.7, K+ 3.3. Would consider contrast study (BE vs CT) if not improving after NG, and K+ replacement. Given history of Factor V Leiden and significant edema, will check abdomen for venous obstruction. Would also consider hyperal. Seen with Dr. Ridley, will continue to follow. History of Present Illness Attending Physician: Juanpablo Mccormick History of Present Illness 72 y/o female approx 2 months s/p resection of splenic flexure cancer. Had N/V, diarrhea following her 5th chemo treatment. Was admitted 7 days ago for possible enteritis, has not been doing well other than diarrhea has resolved. Has not had BM or flatus for days, XR now suggesting ileus. Has been more bloated, not tolerating diet. Has leg swelling and weight gain. NG tube was ordered but not yet placed when we saw her. Allergies Allergy/AdvReac Type Severity Reaction Status Date / Time celecoxib Allergy Severe FACIAL Verified 09/04/18 16:49 SWELLING, SOB, HIVES Home Medications Home Medications Medication Instructions Recorded Confirmed Type cholecalciferol (vitamin D3) 1,000 unit PO QAM 10/18/17 09/04/18 History [Vitamin D3] hydrochlorothiazide 25 mg PO QAM 10/18/17 09/04/18 History lisinopril 10 mg PO QAM 10/18/17 09/04/18 History multivitamin 1 tab PO QAM 10/18/17 09/04/18 History diphenhydramine HCl [Benadryl] 25 mg PO HS PRN 06/30/18 09/04/18 History ranitidine HCl [Zantac] 150 mg PO HS PRN 06/30/18 09/04/18 History apixaban 2.5 mg tablet 2.5 mg PO BID #180 tab 08/29/18 09/04/18 History febuxostat 80 mg tablet 80 mg PO QAM #90 tab 09/01/18 09/04/18 Rx tramadol 50 mg tablet 100 mg PO QID PRN #720 tab 09/01/18 09/04/18 Rx diphenoxylate-atropine 1 tab PO QID PRN 09/04/18 09/04/18 History gabapentin 300 mg PO TID 09/04/18 09/04/18 History ondansetron in 0.9 % sod chlor 8 mg IV UD 09/04/18 09/04/18 History Patient History Medical History Volume depletion (Acute) Acute gastroenteritis (Acute) Acute renal failure (Acute) Chemotherapy adverse reaction (Acute) Hypertension (Chronic) CKD (chronic kidney disease) stage 3, GFR 30-59 ml/min (Chronic) Factor 5 Leiden mutation, heterozygous (Chronic) On Eliquis for h/o DVT --CURRENTLY ON HOLD UNTIL PROCEDURES ARE DONE. Colon obstruction (Acute) At splenic flexure. Biopsy pending, felt likely cancerous. Neuropathy BILATERAL LEGS Adenocarcinoma of colon GERD (gastroesophageal reflux disease) OCCASIONAL. Gout History of DVT (deep vein thrombosis) On Eliquis. Obesity Osteoarthritis Surgical History S/P cholecystectomy H/O tubal ligation History of tooth extraction (Acute) H/O colonoscopy 06/26/18 [facility] History of colon resection 07/01/2018. GETA. MAC 3, grade 1 view. No issues. Family History Sister Family history of diabetes mellitus Mother Family history of diabetes mellitus Stroke syndrome Father Suicide Unknown Arthritis Social History Preferred Language: Yoruba Communication Ability: Effective Visual Impairment: No Limitations Hearing Ability: Normal Hamper Maker Machine Required: No Beliefs That Will Affect Care: Gnosticism Gnosticism Beliefs: Orthodox, [address] [place] [address] marital status: Current Living Situation: Spouse current occupational status: retired current occupation: Previous seamstress. Feels Safe at Home: Yes Smoking Status: Never smoker Do You Dip or Chew Tobacco: No Second Hand Exposure: No Hx Alcohol Use: No Hx Substance Use: No Review of Systems Constitutional: + weight gain Gastrointestinal: + bloating and + nausea Physical Exam Cardiovascular: Extremities: + edema (bilat LE) Gastrointestinal (Abdomen): Inspection/Auscultation: + abdomen distended Percussion/Palpation: + abdomen tender (minimal) and abdomen soft; no guarding Results & Data Vital Signs (Past 12 Hours) Vital Signs Temp Pulse Resp BP Pulse Ox 09/11/18 08:50 78 20 131/78 96 09/11/18 07:14 36.6 C 75 20 148/76 H 96 PG Care Time/CCT Total # of Minutes Spent Total Time Spent with Patient: Total time spent is greater than 50% in coordination of care (as documented) at patient's floor/unit and/or counseling patient:
[2018-09-11] MEDS: HYDROmorphone INJ 0.5 MG/0.5 ML SYR IV PRN ×2 (15:59→20:36)
[2018-09-11] MEDS: HEPARIN 100 UNIT/ML 5ML FLUSH FLUSH PRN ×2 (16:59→22:22)
--- NOTE | 2018-09-11 17:25 | Ultrasound Report ---
DOPPLER ULTRASOUND OF THE HEPATIC AND PORTAL VASCULATURE CLINICAL HISTORY: Lower extremity edema. Factor V Leiden deficiency. COMPARISON STUDY: Abdominal CT dated 09/04/2018. FINDINGS: Real-time, grayscale, and color Doppler sonography of the hepatic and portal vasculature is performed. The main portal vein as well as intrahepatic portal veins are patent with normal directio n of flow. The hepatic artery is patent and demonstrates normal arterial waveforms. The right and mid dle hepatic veins are patent with normal direction of flow. The left hepatic vein was not visualized. Inferior vena cava is patent. IMPRESSION: The hepatic veins and portal veins are patent with normal direction of flow. Electronically signed by: Francis Hodges M.D. 09/11/2018 5:24 PM
--- NOTE | 2018-09-11 17:26 | Ultrasound Report ---
US duplex mesenteric HISTORY: 72 years-old Female LE edema, factor V acute lower extremity edema COMPARISON: CT abdomen and pelvis 09/04/2018 TECHNIQUE: Multiple real time sonographic images of the mesenteric arteries were attempted assessing grayscale appearance, color and spectral flow FINDINGS: Study is limited secondary to obscuring bowel gas with nonvisualization of the mesenteric arteries. N ormal plug flow noted within the visualized abdominal aorta. No gross abnormality identified. IMPRESSION: Limited study secondary to obscuring bowel gas with nonvisualization of the mesenteric ar teries. The above report was generated using voice recognition software. It may contain grammatical, syntax o r spelling errors. Electronically signed by: Yehuda Day M.D. 09/11/2018 5:25 PM
[2018-09-11] MEDS: ONDANSETRON INJ 2 MG/ML 2 ML VIAL IV PRN (20:37)
--- NOTE | 2018-09-11 21:10 | Hospitalist Progress Note ---
Date of Service September 11, 2018 Assessment & Plan (1) Ileus: ONGOING. NO IMPROVEMENT. NO response to enemas, promotility agent, or time. NG tube placed today; x-ray confirmed proper placement. Intermittent low-wall suction. At time of admission the patient had copious diarrhea thought 2nd to recent chemotherapy. Multiple agents were started including immodium, octreotide, and pancrease w/ meals for the severe diarrhea. STOPPED octreotide and scheduled pancrease/immodium Saturday of this week. Keep K and mag wnl. Dr Ridley consulted; he does not feel this is an evolving bowel obstruction; believes it is indeed an ileus -- perhaps related to recent chemotherapy. Previous infectious w/u negative. appreciate Dr De La Cruz's consultation and Dr Cuadra's consultation. (2) Diarrhea: Resolved. See "ileus" above. (3) Acute kidney injury: Peak Cr 3, now <1. Resolved. (4) History of DVT (deep vein thrombosis): with known factor 5 Leiden mutation. had been off eliquis for several days. DVT was several years ago. risks of being off anticoagulation are high given Factor 5 Leiden mutation. thus continuing heparin infusion per protocol. resume eliquis once taking PO again. (5) Adenocarcinoma of colon: s/p hemicolectomy 2019. now on 5-FU and leucovorin. Appreciate heme/onc consultation and recommendations. Dr Smith recommends checking DPD gene mutation. If DPD is abnormal she would be vulnerable to ill effects of 5FU treatment. DPD pending. No evidence of recurrence or progression on recent CT abd/pelvis. Appreciate Dr Smith's consultation. (6) HTN (hypertension): Meds on hold due to recent BRITTANY and volume depletion. Cont to hold meds. BPs acceptable. (7) CKD (chronic kidney disease) stage 3, GFR 30-59 ml/min: baseline CrCl <60 BMP in am for stability once again (8) UTI (urinary tract infection): u/a suspicious for such. culture neg however. received rocephin x 3. stopped after 3 days of Rx (9) Gout: pt on uloric at home for prophylaxis. using home stock for such. (10) Hypokalemia: due to lack of oral intake. replace IV. repeat K in am. (11) Hypomagnesemia: due to lack of oral intake. replace IV. repeat level in am. will make ileus worse. (12) Hypoalbuminemia: severe. due to lack of nutrition pre-hospitalization and during this stay. albumin IV ordered by Dr Smith. if still NPO tomorrow then start parenteral nutrition. (13) Weight gain: marked weight gain this admission due to copious IV fluids and 3rd spacing from low albumin fluids have been stopped start diuretic tomorrow am briefly updated today Skylar, daughter , updated again by phone Subjective patient with no flatus, no stool, ongoing abd distension. had dry heaves this am. still feels very poorly. agreeable to NG tube placement. spoke with both GI and general surgery, Dr Ridley - both of whom will see patient today. updated daughter Skylar by phone this evening. Review of Systems Constitutional: + fatigue; no fever and no chills Respiratory: no cough and no dyspnea Cardiovascular: + edema; no chest pain, no orthopnea and no paroxysmal nocturnal dyspnea Gastrointestinal: + abdominal pain, + bloating, + nausea and + vomiting Physical Exam Constitutional: + ill appearing and + obese; no acute distress ENMT: external ear and nose normal, oropharynx normal Respiratory: normal respiratory effort, lungs clear to auscultation Auscultation: + diminished lung sounds (bases) Cardiovascular: Rate/Rhythm: regular rate and regular rhythm Heart Sounds: normal S1 and normal S2; no murmur Vessels: posterior tibial pulses present and dorsalis pedis pulses present; no JVD Extremities: + edema (2+ b/l) Gastrointestinal (Abdomen): Inspection/Auscultation: + abdomen distended (no change from prior exam); + abnormal bowel sounds (decreased ) Percussion/Palpation: + abdomen tender (upper abdomen ); no guarding and no hepatosplenomegaly Psychiatric: Orientation: alert, oriented to person and oriented to place Affect: + constricted affect Results & Data Vital Signs (Past 12 Hours) Vital Signs Temp Pulse Resp BP BP Pulse Ox 09/11/18 19:00 36.3 C L 83 20 147/76 H 96 09/11/18 15:00 36.3 C L 77 20 129/71 97 Laboratory Results Laboratory Results - last 24 hr 09/11/18 09/11/18 09/11/18 05:29 05:29 13:45 WBC 6.59 RBC 2.68 L Hgb 8.7 L Hct 25.5 L MCV 95.1 MCH 32.5 MCHC 34.1 RDW Std Deviation 56.9 H RDW Coeff of Zee 17.4 H Plt Count 225 MPV 9.0 Neutrophils % (Manual) 76.4 Lymphocytes % (Manual) 15.7 Monocytes % (Manual) 7.0 Eosinophils % (Manual) 0.9 Neutrophils # (Manual) 5.03 Total Absolute Neuts 5.03 Lymphocytes # (Manual) 1.03 L Total Abs Lymphocytes 1.03 L Monocytes # (Manual) 0.46 Eosinophils # (Manual) 0.06 Toxic Granulation 3+ Dohle Bodies 2+ APTT 45.0 H PTT Ratio 1.7 Sodium 135 L Potassium 3.3 L Chloride 101 Carbon Dioxide 25 Anion Gap 9.0 BUN 19 H Creatinine 0.75 Est Cr Clr Drug Dosing 68.4 Est GFR ( Amer) 91.7 Est GFR (Non-Af Amer) 79.1 BUN/Creatinine Ratio 24.9 H Glucose 111 H Calcium 7.4 L Magnesium 1.8 Total Bilirubin 0.4 AST 14 L ALT 21 Alkaline Phosphatase 48 Total Protein 4.0 L Albumin 1.7 L Globulin 2.3 L Albumin/Globulin Ratio 0.7 L PG Care Time/CCT Total # of Minutes Spent Total Time Spent with Patient: Total time spent is greater than 50% in coordina tion of care (as documented) at patient's floor/unit and/or counseling patient: (1) UTI (urinary tract infection) Hematuria presence: without hematuria Urinary tract infection type: site unspecified Qualified Code(s): N39.0 - Urinary tract infection, site not specified (2) Gout Chronicity: unspecified Gout etiology: unspecified cause Gout site: unspecified site Qualified Code(s): M10.9 - Gout, unspecified (3) Diarrhea Diarrhea type: unspecified type Qualified Code(s): R19.7 - Diarrhea, unspecified (4) HTN (hypertension) Hypertension type: essential hypertension Qualified Code(s): I10 - Essential (primary) hypertension
[2018-09-11 22:56] LABS: Partial Thromboplastin Ratio 4.6
[2018-09-11 23:05] LABS: Partial Thromboplastin Time 125.9 Seconds (21.0-31.0)
[2018-09-11 23:58] LABS: Partial Thromboplastin Ratio 3.2
[2018-09-12 00:01] LABS: Partial Thromboplastin Time 86.2 Seconds (21.0-31.0)
[2018-09-12] MEDS: HYDROmorphone INJ 0.5 MG/0.5 ML SYR IV PRN ×2 (01:32→20:39)
[2018-09-12] MEDS: HEPARIN 100 UNIT/ML 5ML FLUSH FLUSH PRN (01:32)
[2018-09-12 07:10] LABS: INR 1.4 (0.9-1.1); Partial Thromboplastin Ratio 1.8; Prothrombin Time 14.2 Seconds (9.0-12.0)
[2018-09-12 07:15] LABS: Partial Thromboplastin Time 47.6 Seconds (21.0-31.0)
[2018-09-12 07:33] LABS: BUN Creatinine Ratio 22.6 (10-20); Calcium 7.5 mg/dl (8.5-10.1); Creatinine Clr Calc Pharmacy 65.7 ml/min; Est GFR (African American) 87.4; Est GFR (Non-African American) 75.4; Phosphorus 2.7 mg/dl (2.5-4.9); Potassium 3.8 mmol/L (3.5-5.1)
--- NOTE | 2018-09-12 08:19 | Surgery Progress Note ---
Date of Service September 12, 2018 Assessment & Plan (1) Ileus: Will check KUB to evaluate for resolving ileus. Possibly remove NGT later today and start clear liquids. Add lipase on to morning labs Potassium repleted Patient seen and examined with Dr. Ridley Present on Admission?: Yes Subjective Patient feeling better after NGT placement. Had a couple BM's yesterday/overnight. Physical Exam Gastrointestinal (Abdomen): Inspection/Auscultation: + abdomen distended (less distended than yesterday) Percussion/Palpation: abdomen soft; abdomen nontender NGT with 800cc bilious output Results & Data Vital Signs (Past 12 Hours) Vital Signs Temp Pulse Resp BP Pulse Ox 09/12/18 08:05 36.8 C 73 18 147/73 H 97 09/12/18 05:24 36.8 C 77 20 132/69 94 09/11/18 23:50 36.9 C 78 20 121/69 95 PG Care Time/CCT Total # of Minutes Spent Total Time Spent with Patient: Total time spent is greater than 50% in coordination of care (as documented) at patient's floor/unit and/or counseling patient:
[2018-09-12] MEDS: MULTIVITAMIN TAB PO SCH (08:49)
[2018-09-12] MEDS: CHOLECALCIFEROL 1,000 UNITS TAB PO SCH (08:49)
[2018-09-12] MEDS: ALBUMIN 25% 50 ML IV SCH (09:16)
[2018-09-12] MEDS: GABAPENTIN 300 MG CAP PO SCH ×3 (09:26→20:40)
--- NOTE | 2018-09-12 09:29 | XRay Report ---
XR KUB/Abdomen 1 view CLINICAL HISTORY: ileus obstruction COMPARISON STUDY: 09/11/2018 FINDINGS: Mildly progressive proximal to mid small bowel distention. Air-filled nondistended colon. N asogastric tube within the gastric fundus. IMPRESSION: Unchanging to slightly progressive mid to distal small bowel obstructive change. Nasogas tric tube within the gastric fundus. The above report was generated using voice recognition software. It may contain grammatical, syntax or spelling errors. Electronically signed by: Adam White M.D. 09/12/2018 9:28 AM
[2018-09-12] MEDS ORDERED: TPN/PPN CONSULT PHARMACY PRN (11:07)
[2018-09-12] MEDS ORDERED: FUROSEMIDE 20 MG in SYRINGE 0 ML IV ONE ×2 (11:30→18:00)
[2018-09-12] MEDS ORDERED: DEXTROSE 10% 1,000 ML IV SCH ×2 (11:45→12:15)
[2018-09-12] MEDS ORDERED: DEXTROSE 10% 1,000 ML IV PRN (12:03)
--- NOTE | 2018-09-12 12:19 | Pharmacy Report ---
Pharmacy PN Initial Consult - Date of Service September 12, 2018 - Scope Pharmacy has been consulted to manage parenteral nutrition orders and order appropriate labs. As part of the Nutrition Support Team guidelines, pharmacy will work in conjunction with dietary when determining the patients caloric needs. - Subjective The patient is a 72 year old F admitted on 09/04/18 18:34 for GASTROENTERITIS,VOLUME DEPLETION,ACUTE KIDNEY FAIL. Patient is to receive parenteral nutrition for Ileus- not improving and prolonged NPO. Pertinent PMH: Colon Cancer s/p chemo - Objective Height: 5 ft 1 in Weight: 90.2 kg Diet: NPO Intake & Output (Last 24Hrs): Intake & Output 09/10/18 09/11/18 09/12/18 09/13/18 06:59 06:59 06:59 06:59 Intake Total 2022.267 / 2022.267 3838.883 / 3838.883 975.417 / 975.417 131 / 131 Output Total 750 / 750 700 / 700 1101 / 1101 401 / 401 Balance 1272.267 / 9502.860 5136.883 / 3138.883 -125.583 / -125.583 -270 / -270 Weight 89.9 kg 90.9 kg 90.2 kg Laboratory Data (Last 24 Hrs):: 09/12/18 06:38 Sodium 134 L Potassium 3.8 D Chloride 101 Carbon Dioxide 28 BUN 18 Creatinine 0.78 Glucose 88 Calcium 7.5 L Phosphorus 2.7 Magnesium 2.0 Nutrition Assessment:: Please refer to the Notes section of the EMR for the most recent air hose coupler note. - Plan For day 1 of PN administration, the following will be ordered. Will continue to titrate macros up to goal and adjust electrolytes in PN per daily labs. Macronutrients Amino acids 35 grams/day Dextrose 95 grams/day Lipids 20 grams/day Micronutrients Combined electrolytes 20 mL - contains 35 mEq Na, 20 meq K, 4.5 mEq Ca, 5 mEq Mg, 35 mEq Cl, 29.5 mEq acetate per 20 mL Sodium phosphate 10 MMol Potassium phosphate 10 mMol Multivitamins 10 mL Trace Elements 10 mL Total volume 623.4 mL to be infused over 24 hrs will provide 663 kcal/day Final osmolarity exceeds that for peripheral administration - must be given centrally via A-port Labs to be ordered per PN order protocol Pharmacy will follow and adjust parenteral nutrition orders on a daily basis. Thank you.
[2018-09-12] MEDS: HEPARIN SODIUM/DEXTROSE 25,000 UNITS/500 ML BAG IV SCH (14:36)
--- NOTE | 2018-09-12 15:14 | Surgery Progress Note ---
Date of Service September 12, 2018 Assessment & Plan (1) Ileus: moderate NG output during the day, not much more flatus, XR appear similar will leave NG for today edema improving to start TPN today Results & Data Vital Signs (Past 12 Hours) Vital Signs Temp Pulse Resp BP Pulse Ox 09/12/18 11:26 36.5 C 81 18 126/81 96 09/12/18 08:05 36.8 C 73 18 147/73 H 97 09/12/18 05:24 36.8 C 77 20 132/69 94
--- NOTE | 2018-09-12 15:50 | Gastroenterology Progress Note ---
Date of Service September 12, 2018 Assessment & Plan (1) Ileus: Ileus vs partial obstruction---supportive care, NG suction, appreciate surgical consult, unclear etiology. Was on Imodium and octreotide which can slow gut down. Duplex mesenteric could not visualize arteries, and portal/hepatic ve in studies neg. Moving bowels so clinically seems improved abd pain--improved heme pos stool-hgb stable. no gross bleeding (stools brown)--no urgent need for endoscopy. elevated LFTS--trend could be med effect, viral process, resolved on earlier lab but follow Subjective cc f/u abd pain HPI KUB this am report ongoing SB dilatation. States minimal abd pain just once in awhile. Did have loose stools overnight and this am. NG output about 400 ml today per nursing but eating ice chips also. Review of Systems Respiratory: no dyspnea Cardiovascular: no chest pain Gastrointestinal: abdomen pos bs, moderately distended and tympanitic but no guarding nor rebound. Results & Data Vital Signs (Past 12 Hours) Vital Signs Temp Pulse Resp BP Pulse Ox 09/12/18 15:39 36.7 C 79 17 120/75 95 09/12/18 11:26 36.5 C 81 18 126/81 96 09/12/18 08:05 36.8 C 73 18 147/73 H 97 09/12/18 05:24 36.8 C 77 20 132/69 94
[2018-09-12] MEDS ORDERED: CUSTOM CENTRAL PN IV SCH (16:00)
--- NOTE | 2018-09-12 21:48 | Hospitalist Progress Note ---
Date of Service September 12, 2018 Assessment & Plan (1) Ileus: finally improving s/p NG tube decompression, correction of electrolyte abnormalities, and time. appreciate GI and gen surg consults/recs. ileus felt 2nd to chemotherapy although clinical course has been very odd (started with copious diarrhea, then developed severe ileus). cont NG tube today - probably d/c tomorrow. start TPN today due to lack of nutrition for 7+ days. (2) Diarrhea: Resolved. See "ileus" above. Never found infections. Likely chemo-related. (3) Acute kidney injury: Peak Cr 3, now <1. Resolved. (4) History of DVT (deep vein thrombosis): with known factor 5 Leiden mutation. had been off eliquis for several days. DVT was several years ago. risks of being off anticoagulation are high given Factor 5 Leiden mutation. thus continuing heparin infusion per protocol. resume eliquis once taking PO again. (5) Adenocarcinoma of colon: s/p hemicolectomy 2019. now on 5-FU and leucovorin. Appreciate heme/onc consultation and recommendations. Dr Smith recommends checking DPD gene mutation. If DPD is abnormal she would be vulnerable to ill effects of 5FU treatment. DPD still pending. No evidence of recurrence or progression on recent CT abd/pelvis. Appreciate Dr Smith's consultation. (6) HTN (hypertension): Meds on hold due to recent BRITTANY and volume depletion. Cont to hold meds. BPs acceptable. Lasix for volume overload. (7) CKD (chronic kidney disease) stage 3, GFR 30-59 ml/min: baseline CrCl <60 BMP in am for stability once again (8) UTI (urinary tract infection): u/a suspicious for such. culture neg however. received rocephin x 3. stopped after 3 days of Rx (9) Gout: pt on uloric at home for prophylaxis. use home stock for such. (10) Hypokalemia: improved. repeat BMP am. (11) Hypomagnesemia: improved. repeat level am. (12) Hypoalbuminemia: severe. due to lack of nutrition pre-hospitalization and during this stay. albumin IV ordered by Dr Smith. start TPN today. (13) Weight gain: marked weight gain this admission due to copious IV fluids and 3rd spacing from low albumin fluids have been stopped no evidence of CHF. lasix 20mg IV x 2 doses today updated at bedside today pleased w/ her progress Subjective patient has had 2 stools with flatus today. feels better. "I don't feel so dopey today" she states. abd discomfort and bloating improved. no dyspnea. at bedtime. Review of Systems Constitutional: no fever Respiratory: no cough and no dyspnea Cardiovascular: no chest pain Gastrointestinal: no vomiting Physical Exam Constitutional: + obese; no acute distress and not ill appearing looks better today ENMT: external ear and nose normal, oropharynx normal Respiratory: normal respiratory effort, lungs clear to auscultation Auscultation: + diminished lung sounds (bases) Cardiovascular: Rate/Rhythm: regular rate and regular rhythm Heart Sounds: normal S1 and normal S2; no murmur Vessels: posterior tibial pulses present and dorsalis pedis pulses present; no JVD Extremities: + edema (2-3+ b/l) Gastrointestinal (Abdomen): Inspection/Auscultation: + abdomen distended (improved today); + abnormal bowel sounds (improved today) Percussion/Palpation: abdomen nontender, no guarding and no hepatosplenomegaly Psychiatric: Orientation: alert, oriented to person and oriented to place Affect: + constricted affect Results & Data Vital Signs (Past 12 Hours) Vital Signs Temp Pulse Resp BP Pulse Ox 09/12/18 19:47 36.6 C 84 20 122/68 94 09/12/18 15:39 36.7 C 79 17 120/75 95 09/12/18 11:26 36.5 C 81 18 126/81 96 Laboratory Results Laboratory Results - last 24 hr 09/11/18 09/11/18 09/12/18 22:20 23:21 06:38 PT 14.2 H INR 1.4 H APTT 125.9 H* 86.2 H* 47.6 H* PTT Ratio 4.6 3.2 1.8 Sodium Potassium Chloride Carbon Dioxide Anion Gap BUN Creatinine Est Cr Clr Drug Dosing Est GFR ( Amer) Est GFR (Non-Af Amer) BUN/Creatinine Ratio Glucose Calcium Phosphorus Magnesium Lipase 09/12/18 09/12/18 06:38 06:38 PT INR APTT PTT Ratio Sodium 134 L Potassium 3.8 D Chloride 101 Carbon Dioxide 28 Anion Gap 5.0 BUN 18 Creatinine 0.78 Est Cr Clr Drug Dosing 65.7 Est GFR ( Amer) 87.4 Est GFR (Non-Af Amer) 75.4 BUN/Creatinine Ratio 22.6 H Glucose 88 Calcium 7.5 L Phosphorus 2.7 Magnesium 2.0 Lipase 336 PG Care Time/CCT Total # of Minutes Spent Total Time Spent with Patient: Total time spent is greater than 50% in coordination of care (as documented) at patient's floor/unit and/or counseling patient: (1) UTI (urinary tract infection) Hematuria presence: without hematuria Urinary tract infection type: site unspecified Qualified Code(s): N39.0 - Urinary tract infection, site not specified (2) Gout Chronicity: unspecified Gout etiology: unspecified cause Gout site: unspecified site Qualified Code(s): M10.9 - Gout, unspecified (3) Diarrhea Diarrhea type: unspecified type Qualified Code(s): R19.7 - Diarrhea, unspecified (4) HTN (hypertension) Hypertension type: essential hypertension Qualified Code(s): I10 - Essential (primary) hypertension
[2018-09-13 06:07] LABS: Hematocrit (blood only) 26.1 % (37-47); Hemoglobin 8.7 g/dL (12.0-16.0); Mean Corpuscular Hgb Conc 33.3 g/dL (32-36); Mean Corpuscular Volume 94.9 fL (80-100); Mean Platelet Volume 9.1 fL (7.4-10.4); Platelet Count 226 K/uL (130-400); RDW Coefficient of Variation 17.7 % (11.5-14.5); RDW Standard Deviation 58.5 fL (36.4-46.3); Red Blood Count 2.75 M/uL (4.2-5.4); White Blood Count 5.25 K/uL (4.8-10.8)
[2018-09-13 06:30] LABS: Basophils # (auto) 0.01 K/uL (0-0.2); Basophils % (auto) 0.2 %; Eosinophils # (auto) 0.02 K/uL (0-0.5); Eosinophils % (auto) 0.4 %; Immature Granulocytes # (auto) 0.03 K/uL (0.00-0.02); Immature Granulocytes % (auto) 0.6 %; Lymphocytes # (auto) 1.38 K/uL (1.2-3.4); Lymphocytes % (auto) 26.3 %; Monocytes # (auto) 0.57 K/uL (0.11-0.59); Monocytes % (auto) 10.9 %; Neutrophils # (auto) 3.24 K/uL (1.4-6.5); Neutrophils % (auto) 61.6 %; Polychromasia 1+
[2018-09-13 06:39] LABS: Albumin Globulin Ratio 0.8 (0.9-2); BUN Creatinine Ratio 19.5 (10-20); Bilirubin,Total 0.4 mg/dl (0.2-1); Calcium 8.1 mg/dl (8.5-10.1); Creatinine Clr Calc Pharmacy 61.7 ml/min; Est GFR (African American) 81.1; Globulin 2.5 gm/dl (2.5-4.0); Phosphorus 3.6 mg/dl (2.5-4.9); Potassium 2.8 mmol/L (3.5-5.1); Total Protein 4.5 gm/dl (6.4-8.2)
[2018-09-13 07:17] LABS: INR 1.2 (0.9-1.1); Prothrombin Time 12.5 Seconds (9.0-12.0)
[2018-09-13 07:39] LABS: Magnesium 1.7 mg/dl (1.8-2.4)
[2018-09-13 07:57] LABS: Partial Thromboplastin Ratio 1.3; Partial Thromboplastin Time 34.5 Seconds (21.0-31.0)
[2018-09-13] MEDS: MAGNESIUM SULFATE / D5W 1 GM/100 ML BAG IV SCH ×2 (08:09→09:06)
[2018-09-13] MEDS: POTASSIUM CHLORIDE / WTR 10 MEQ/100 ML PLCT IV SCH ×4 (08:09→17:33)
[2018-09-13] MEDS: CHOLECALCIFEROL 1,000 UNITS TAB PO SCH (08:09)
[2018-09-13] MEDS: MULTIVITAMIN TAB PO SCH (08:09)
[2018-09-13] MEDS: GABAPENTIN 300 MG CAP PO SCH ×3 (08:09→20:41)
[2018-09-13] MEDS ORDERED: HEPARIN IV BOLUS 5,000 UNITS in SYRINGE 0 ML IV ONE (09:00)
--- NOTE | 2018-09-13 09:45 | Surgery Progress Note ---
Date of Service September 13, 2018 Assessment & Plan (1) Ileus: some improvement, now passing flatus although K+ back below 3 NG output around 800 per shift, will consider clamping when decreasing ? tomorrow consider contrast study if not making more progress in the next 24-48 hours replace K+ per medicine/pharmacy seen with Dr. Agudelo Supervising Physician Co-Signing Physician Notes pnt Seen and examined, agree with above. Likely resolving ileus, less likely obstruction. +flatus, abd soft and less distended, NG appears to be decreasing output but was not in stomach for a portion of the evening. Will clamp trial later today or tomorrow if low output. Subjective some flatus this morning, no recent BM, NG repositioned last night Physical Exam Gastrointestinal (Abdomen): Inspection/Auscultation: + abdomen distended (less) Percussion/Palpation: abdomen soft; abdomen nontender Results & Data Vital Signs (Past 12 Hours) Vital Signs Temp Pulse Resp BP Pulse Ox 09/13/18 07:23 36.8 C 77 16 130/72 97 09/12/18 23:28 36.7 C 78 20 139/71 96 PG Care Time/CCT Total # of Minutes Spent Total Time Spent with Patient: Total time spent is greater than 50% in coordination of care (as documented) at patient's floor/unit and/or counseling patient:
[2018-09-13] MEDS: HYDROmorphone INJ 0.5 MG/0.5 ML SYR IV PRN ×2 (11:20→21:10)
[2018-09-13] MEDS: HEPARIN SODIUM/DEXTROSE 25,000 UNITS/500 ML BAG IV SCH (14:40)
--- NOTE | 2018-09-13 15:08 | Gastroenterology Progress Note ---
Date of Service September 13, 2018 Assessment & Plan (1) Ileus: Ileus vs partial obstruction---supportive care, NG suction, appreciate surgical consult, unclear etiology. Was on Imodium and octreotide which can slow gut down. Duplex mesenteric could not visualize arteries, and portal/hepatic ve in studies neg. Clinically better. NG management and decision on imaging per surgery. abd pain--improved heme pos stool-hgb stable. no gross bleeding (stools brown)--no urgent need for endoscopy. elevated LFTS--trend could be med effect, viral process, resolved Subjective cc f/u ileus vs partial SBO HPI Daughter with patient for H and P. Per nursing had loose bm earlier today. She is passing gas and minimal abd pain. NG output up to 800/shift but taking in quite a bit of ice chips so difficult to tell how she would handle stomach secretions. Review of Systems Respiratory: no dyspnea Cardiovascular: no chest pain Physical Exam Respiratory: normal respiratory effort, lungs clear to auscultation Cardiovascular: RRR, no murmur, no edema Gastrointestinal (Abdomen): pos bs, mildly distended and tympanitic, no guarding nor rebound Psychiatric: A+Ox3, euthymic affect Results & Data Vital Signs (Past 12 Hours) Vital Signs Temp Pulse Resp BP Pulse Ox 09/13/18 07:23 36.8 C 77 16 130/72 97
[2018-09-13 15:57] LABS: Partial Thromboplastin Ratio 4.1
[2018-09-13] MEDS ORDERED: CUSTOM CENTRAL PN IV SCH (16:00)
[2018-09-13 16:02] LABS: Partial Thromboplastin Time 109.9 Seconds (21.0-31.0)
--- NOTE | 2018-09-13 20:17 | Hospitalist Progress Note ---
Date of Service September 13, 2018 Assessment & Plan (1) Ileus: improving clinically -- passing flatus and stools. abdominal distension improved. still with considerable bilious output however. surgery and GI to leave NG tube 1 more day. appreciate their assistance. clinical course -- copious diarrhea at admission followed by stopping of such then development of ileus. had been on octreotide and immodium -- possible that these agents contributed to motility issues early on. either way these agents were stopped early this week. all GI issues 2nd to 5-FU therapy ?? (had chemo several days prior to GI symptoms starting) Present on Admission?: No (2) Diarrhea: Resolved. See "ileus" above. Never found infections. Likely chemo-related. (3) Hypoalbuminemia: severe. due to lack of nutrition pre-hospitalization and during this stay. s/p albumin this week with modest improvement in albumin level. started TPN on Saturday. continue such until she is eating consistently. appreciate pharmacy assistance with TPN. (4) Acute kidney injury: Peak Cr 3, now <1. Resolved. (5) History of DVT (deep vein thrombosis): with known factor 5 Leiden mutation. had been off eliquis for several days earlier this stay. DVT was several years ago. risks of being off anticoagulation are high given Factor 5 Leiden mutation. thus continuing heparin infusion per protocol. resume eliquis once taking PO again. (6) Adenocarcinoma of colon: s/p hemicolectomy 2019. now on 5-FU and leucovorin. Appreciate Dr Smith's consultation and recommendations. Dr Smith recommends checking DPD gene mutation. If DPD is abnormal she would be vulnerable to ill effects of 5FU treatment. DPD still pending. No evidence of recurrence or progression on recent CT abd/pelvis. (7) HTN (hypertension): Meds on hold due to recent BRITTANY and volume depletion. Cont to hold meds. BPs acceptable. Lasix for volume overload PRN. (8) CKD (chronic kidney disease) stage 3, GFR 30-59 ml/min: baseline CrCl <60 BMPs have been stable (9) UTI (urinary tract infection): received rocephin x 3 days then stopped. no symptoms of UTI at this time. (10) Gout: pt on uloric at home for prophylaxis. use home stock for such when able to take PO. no flares at this time. (11) Hypokalemia: ongoing. due to lasix use and poor oral intake. replace mag. replace K. repeat levels AM. (12) Hypomagnesemia: ongoing. 2nd to lasix use and poor oral intake. replace again today. repeat level AM. (13) Weight gain: marked weight gain this admission due to copious IV fluids and 3rd spacing from low albumin fluids have been stopped no evidence of CHF. has lost 10 pounds last few days with diuresis. no lasix today, however, due to significantly low K and mildly low mag. if these levels are improved tomorrow then resume lasix. daughter updated at bedside today cont PT/OT encouraged patient to walk at least qshift Subjective continues to feel better each day. has had 2 stools since awakening this am (1 just prior to my arrival). had abd discomfort earlier today in the RLQ but resolved with narcotics. NG tube with ongoing copious bilious output. passing flatus. trying to walk at least once daily. daughter from [place] at bedside today. pt asks "what are we going to do next." Review of Systems Constitutional: no fever Respiratory: no dyspnea Cardiovascular: + edema (but reports it is improved today); no chest pain, no orthopnea and no paroxysmal nocturnal dyspnea Gastrointestinal: + abdominal pain; no nausea, no vomiting and no blood in stools Physical Exam Constitutional: + obese; no acute distress and not ill appearing NG tube in place draining bilious contents; patient overall looks better today ENMT: external ear and nose normal, oropharynx normal Respiratory: normal respiratory effort, lungs clear to auscultation Auscultation: + diminished lung sounds (left base); no crackles, no wheezes and no bronchovesicular breath sounds Cardiovascular: Rate/Rhythm: regular rate and regular rhythm Heart Sounds: normal S1 and normal S2; no murmur Vessels: posterior tibial pulses present and dorsalis pedis pulses present; no JVD Extremities: + edema (1-2+ b/l (improved)) Gastrointestinal (Abdomen): Inspection/Auscultation: + abdomen distended (again improved today) and normal bowel sounds Percussion/Palpation: abdomen soft; abdomen nontender, no guarding and no hepatosplenomegaly Psychiatric: A+Ox3, euthymic affect Results & Data Vital Signs (Past 12 Hours) Vital Signs Temp Pulse Resp BP BP Pulse Ox 09/13/18 19:30 36.6 C 72 20 132/71 95 09/13/18 15:30 36.7 C 74 20 128/74 96 Laboratory Results Laboratory Results - last 24 hr 09/13/18 09/13/18 09/13/18 05:25 05:25 05:25 WBC 5.25 RBC 2.75 L Hgb 8.7 L Hct 26.1 L MCV 94.9 MCH 31.6 MCHC 33.3 RDW Std Deviation 58.5 H RDW Coeff of Eze 17.7 H Plt Count 226 MPV 9.1 Immature Gran % (Auto) 0.6 Neut % (Auto) 61.6 Lymph % (Auto) 26.3 [place] % (Auto) 10.9 Eos % (Auto) 0.4 Baso % (Auto) 0.2 Immature Gran # (Auto) 0.03 H Neut # (Auto) 3.24 Lymph # (Auto) 1.38 [place] # (Auto) 0.57 Eos # (Auto) 0.02 Baso # (Auto) 0.01 Polychromasia 1+ PT 12.5 H INR 1.2 H APTT PTT Ratio Sodium 137 Potassium 2.8 L D Chloride 97 L Carbon Dioxide 35 H Anion Gap 5.0 BUN 16 Creatinine 0.83 Est Cr Clr Drug Dosing 61.7 Est GFR ( Amer) 81.1 Est GFR (Non-Af Amer) 70.0 BUN/Creatinine Ratio 19.5 Glucose 115 H Calcium 8.1 L Phosphorus 3.6 Magnesium 1.7 L Total Bilirubin 0.4 AST 27 ALT 29 Alkaline Phosphatase 51 Total Protein 4.5 L Albumin 2.0 L Globulin 2.5 Albumin/Globulin Ratio 0.8 L Triglycerides 132 09/13/18 09/13/18 05:25 15:20 WBC RBC Hgb Hct MCV MCH MCHC RDW Std Deviation RDW Coeff of Zee Plt Count MPV Immature Gran % (Auto) Neut % (Auto) Lymph % (Auto) [place] % (Auto) Eos % (Auto) Baso % (Auto) Immature Gran # (Auto) Neut # (Auto) Lymph # (Auto) [place] # (Auto) Eos # (Auto) Baso # (Auto) Polychromasia PT INR APTT 34.5 H 109.9 H* PTT Ratio 1.3 4.1 Sodium Potassium Chloride Carbon Dioxide Anion Gap BUN Creatinine Est Cr Clr Drug Dosing Est GFR ( Amer) Est GFR (Non-Af Amer) BUN/Creatinine Ratio Glucose Calcium Phosphorus Magnesium Total Bilirubin AST ALT Alkaline Phosphatase Total Protein Albumin Globulin Albumin/Globulin Ratio Triglycerides PG Care Time/CCT Total # of Minutes Spent Total Time Spent with Patient: Total time spent is greater than 50% in coordination of care (as documented) at patient's floor/unit and/or counseling patient: (1) UTI (urinary tract infection) Hematuria presence: without hematuria Urinary tract infection type: site unspecified Qualified Code(s): N39.0 - Urinary tract infection, site not specified (2) Gout Chronicity: unspecified Gout etiology: unspecified cause Gout site: unspecified site Qualified Code(s): M10.9 - Gout, unspecified (3) Diarrhea Diarrhea type: unspecified type Qualified Code(s): R19.7 - Diarrhea, unspecified (4) HTN (hypertension) Hypertension type: essential hypertension Qualified Code(s): I10 - Essential (primary) hypertension
[2018-09-14 00:27] LABS: Partial Thromboplastin Ratio 1.9
[2018-09-14 00:33] LABS: Partial Thromboplastin Time 50.4 Seconds (21.0-31.0)
[2018-09-14] MEDS: ONDANSETRON INJ 2 MG/ML 2 ML VIAL IV PRN ×2 (02:09→20:54)
[2018-09-14] MEDS: HYDROmorphone INJ 0.5 MG/0.5 ML SYR IV PRN ×3 (02:09→23:22)
[2018-09-14 06:15] LABS: Basophils # (auto) 0.01 K/uL (0-0.2); Basophils % (auto) 0.2 %; Eosinophils # (auto) 0.05 K/uL (0-0.5); Eosinophils % (auto) 0.8 %; Hematocrit (blood only) 24.1 % (37-47); Hemoglobin 8.2 g/dL (12.0-16.0); Immature Granulocytes # (auto) 0.06 K/uL (0.00-0.02); Immature Granulocytes % (auto) 0.9 %; Lymphocytes # (auto) 1.81 K/uL (1.2-3.4); Lymphocytes % (auto) 28.3 %; Mean Corpuscular Volume 98.4 fL (80-100); Mean Platelet Volume 8.9 fL (7.4-10.4); Monocytes # (auto) 0.54 K/uL (0.11-0.59); Monocytes % (auto) 8.5 %; Neutrophils # (auto) 3.92 K/uL (1.4-6.5); Neutrophils % (auto) 61.3 %; Platelet Count 224 K/uL (130-400); RDW Coefficient of Variation 17.8 % (11.5-14.5); RDW Standard Deviation 61.8 fL (36.4-46.3); Red Blood Count 2.45 M/uL (4.2-5.4); White Blood Count 6.39 K/uL (4.8-10.8)
[2018-09-14 06:35] LABS: INR 1.1 (0.9-1.1); Prothrombin Time 11.4 Seconds (9.0-12.0)
[2018-09-14 06:49] LABS: Albumin Globulin Ratio 0.7 (0.9-2); Albumin Level 1.8 gm/dl (3.4-5.0); BUN Creatinine Ratio 23.3 (10-20); Bilirubin,Total 0.4 mg/dl (0.2-1); Calcium 7.4 mg/dl (8.5-10.1); Creatinine Clr Calc Pharmacy 60.9 ml/min; Est GFR (African American) 83.5; Est GFR (Non-African American) 72.1; Globulin 2.4 gm/dl (2.5-4.0); Phosphorus 2.9 mg/dl (2.5-4.9); Potassium 3.3 mmol/L (3.5-5.1); Total Protein 4.2 gm/dl (6.4-8.2)
[2018-09-14] MEDS ORDERED: POTASSIUM CHLORIDE / WTR 10 MEQ/100 ML PLCT IV STA (08:10)
[2018-09-14] MEDS: MULTIVITAMIN TAB PO SCH (09:00)
[2018-09-14] MEDS: CHOLECALCIFEROL 1,000 UNITS TAB PO SCH (09:01)
[2018-09-14] MEDS: GABAPENTIN 300 MG CAP PO SCH ×3 (09:01→21:32)
--- NOTE | 2018-09-14 09:28 | Pharmacy Report ---
PHA: Parenteral Nutrition Con - Date of Service September 14, 2018 - Scope Pharmacy was consulted on 09/12/18 to manage parenteral nutrition orders for this patient. - Subjective The patient is currently on day 3 of central parenteral nutrition for ileus - NPO x 4 days. - Objective Height: 5 ft 1 in Weight: 84.1 kg Diet: NPO Intake & Output (24hrs):: Intake & Output 09/12/18 09/13/18 09/14/18 09/15/18 06:59 06:59 06:59 06:59 Intake Total 975.417 / 975.417 524.8 / 524.8 1441.333 / 1441.333 Output Total 1101 / 1101 2104 / 2104 2975 / 2975 Balance -125.583 / -125.583 -1579.2 / -1579.2 -1533.667 / -1533.667 Weight 86.5 kg 84.1 kg Laboratory Data (Last 24 Hr):: 09/14/18 05:27 Sodium 137 Potassium 3.3 L D Chloride 94 L Carbon Dioxide 38 H BUN 19 H Creatinine 0.81 Glucose 115 H Calcium 7.4 L Phosphorus 2.9 Magnesium 2.0 Total Bilirubin 0.4 AST 18 ALT 24 Alkaline Phosphatase 46 Albumin 1.8 L Triglycerides 101 Nutrition Assessment:: Please refer to the Notes section of the EMR for the most recent inspector semiconductor wafer note. - Assessment * Patient's amino acid and fat were advanced to goals recommended by Dietary yesterday * Dextrose was cautiously increased by ~30% yesterday from 95g to 125g * Patient continues to have significant GI losses. K+ improved, but still with slight hypokalemia. Discussed with Dr. Mccormick and KCl 10mEq rider x 1 was given this AM. Cl- continues to be low. Increase KCl in TPN. Mg2+ WNL, but will incr' amount in TPN as patient received Mg2+ 2g yesterday. * Phosphorus decr' by ~20%... still WNL, but went from 3.6 mg/dL to 2.9 mg/dL today. Concerned for refeeding syndrome. Therefore, will not advance dextrose today and maintain at 125g. Incr' KPhos and NaPhos in TPN today to prevent further decr'. Will monitor closely. * Ranitidine 150mg added to TPN starting today per Dr. Mccormick's request (she was previously getting ranitidine 50mg IV q8 separately) - Plan For day #3 of PN administration, the following will be ordered: Macronutrients Amino acids 100 grams/day Dextrose 125 grams/day Lipids 50 grams/day Micronutrients Sodium phosphate 12 MMol Sodium chloride 35 mEq Sodium acetate mEq Potassium phosphate 18 mMol Potassium chloride 80 mEq Potassium acetate mEq Magnesium sulfate 16.24 mEq Calcium gluconate 4.6 mEq Multivitamins 10 mL Trace Elements 1 mL Additional additives: Ranitidine 150mg (previously on ranitidine 50mg IV q8; Dr. Mccormick requests that ranitidine be added to TPN starting today) Total volume 1523 mL to be infused over 24 hrs will provide 1325 kcal/day Labs, as indicated, will be ordered per protocol Pharmacy will continue to follow and adjust parenteral nutrition orders on a daily basis. Thank you for allowing us to participate in the care of this patient.
--- NOTE | 2018-09-14 10:32 | XRay Report ---
KUB HISTORY: Small bowel obstruction follow up bowel obstruction COMPARISON: KUB 09/12/2018 FINDINGS: Enteric tube is noted, distal tip projecting over the abdominal left upper quadrant within the expect ed location of the mid stomach. Gas-filled loops of small and large bowel are noted with small bowel loops measuring up to 4.8 cm transversely, previously measuring up to approximately 6 cm. No pneumato sis or pneumoperitoneum. Surgical clips project over the abdominal right upper quadrant. Degenerative changes of the spine, pelvis and hips. No urolith. IMPRESSION: 1. Enteric tube distal tip noted within the expected location of the mid stomach. 2. Mildly decreased gaseous distention of the large and small bowel suggests ileus or partial obstruc tion. Continued follow-up recommended. 3. No pneumatosis or pneumoperitoneum. Electronically signed by: Yehuda Day M.D. 09/14/2018 10:31 AM
--- NOTE | 2018-09-14 10:45 | Surgery Progress Note ---
Date of Service September 14, 2018 Assessment & Plan (1) Ileus: Appears to have resolving ileus. NG tube output may be artificially elevated due to intake of ice chips and liquids. KUB improving, having bm's and flatus. cont ng tube strict I/O's record input consider clamping ng tomorrow vs. contrasted study surgery will follow Present on Admission?: Yes Subjective 72 y/o female with h/o colectomy for colon ca, now with likely ileus. Passing flatus, + liquid bm's. Still high NG tube output (800cc per shift) but taking ice chips and clears. Spirits are down, frustrated with length of time in hospital. Physical Exam Constitutional: WD/WN, vitals as above Gastrointestinal (Abdomen): Inspection/Auscultation: abdomen not distended Percussion/Palpation: abdomen soft and normal to percussion; abdomen nontender, no guarding and no hepatosplenomegaly Results & Data Vital Signs (Past 12 Hours) Vital Signs Temp Pulse Resp BP BP Pulse Ox 09/14/18 07:38 36.7 C 68 18 127/71 95 09/14/18 03:20 36.3 C L 71 20 132/66 90 09/13/18 23:39 36.5 C 71 20 120/69 94 Laboratory Results Laboratory Results - last 24 hr 09/13/18 09/13/18 09/14/18 15:20 23:32 05:27 WBC RBC Hgb Hct MCV MCH MCHC RDW Std Deviation RDW Coeff of Zee Plt Count MPV Immature Gran % (Auto) Neut % (Auto) Lymph % (Auto) [place] % (Auto) Eos % (Auto) Baso % (Auto) Immature Gran # (Auto) Neut # (Auto) Lymph # (Auto) [place] # (Auto) Eos # (Auto) Baso # (Auto) PT 11.4 INR 1.1 APTT 109.9 H* 50.4 H* 53.0 H* PTT Ratio 4.1 1.9 2.0 Sodium Potassium Chloride Carbon Dioxide Anion Gap BUN Creatinine Est Cr Clr Drug Dosing Est GFR ( Amer) Est GFR (Non-Af Amer) BUN/Creatinine Ratio Glucose Calcium Phosphorus Magnesium Total Bilirubin AST ALT Alkaline Phosphatase Total Protein Albumin Globulin Albumin/Globulin Ratio Triglycerides 09/14/18 09/14/18 05:27 05:27 WBC 6.39 RBC 2.45 L Hgb 8.2 L Hct 24.1 L MCV 98.4 MCH 33.5 MCHC 34.0 RDW Std Deviation 61.8 H RDW Coeff of Zee 17.8 H Plt Count 224 MPV 8.9 Immature Gran % (Auto) 0.9 Neut % (Auto) 61.3 Lymph % (Auto) 28.3 [place] % (Auto) 8.5 Eos % (Auto) 0.8 Baso % (Auto) 0.2 Immature Gran # (Auto) 0.06 H Neut # (Auto) 3.92 Lymph # (Auto) 1.81 [place] # (Auto) 0.54 Eos # (Auto) 0.05 Baso # (Auto) 0.01 PT INR APTT PTT Ratio Sodium 137 Potassium 3.3 L D Chloride 94 L Carbon Dioxide 38 H Anion Gap 5.0 BUN 19 H Creatinine 0.81 Est Cr Clr Drug Dosing 60.9 Est GFR ( Amer) 83.5 Est GFR (Non-Af Amer) 72.1 BUN/Creatinine Ratio 23.3 H Glucose 115 H Calcium 7.4 L Phosphorus 2.9 Magnesium 2.0 Total Bilirubin 0.4 AST 18 ALT 24 Alkaline Phosphatase 46 Total Protein 4.2 L Albumin 1.8 L Globulin 2.4 L Albumin/Globulin Ratio 0.7 L Triglycerides 101 Diagnostic Findings KUB HISTORY: Small bowel obstruction follow up bowel obstruction COMPARISON: KUB 09/12/2018 FINDINGS: Enteric tube is noted, distal tip projecting over the abdominal left upper quadrant within the expected location of the mid stomach. Gas-filled loops of small and large bowel are noted with small bowel loops measuring up to 4.8 cm transversely, previously measuring up to approximately 6 cm. No pneumatosis or pneumoperitoneum. Surgical clips project over the abdominal right upper quadrant. Degenerative changes of the spine, pelvis and hips. No urolith. IMPRESSION: 1. Enteric tube distal tip noted within the expected location of the mid stomach. 2. Mildly decreased gaseous distention of the large and small bowel suggests ileus or partial obstruction. Continued follow-up recommended. 3. No pneumatosis or pneumoperitoneum. PG Care Time/CCT Total # of Minutes Spent Total Time Spent with Patient: Total time spent is greater than 50% in coordination of care (as documented) at patient's floor/unit and/or counseling patient:
[2018-09-14] MEDS: HEPARIN SODIUM/DEXTROSE 25,000 UNITS/500 ML BAG IV SCH (14:24)
--- NOTE | 2018-09-14 14:56 | Gastroenterology Progress Note ---
Date of Service September 14, 2018 Assessment & Plan (1) Ileus: Ileus vs partial obstruction---supportive care, NG suction, appreciate surgical consult, unclear etiology. Was on Imodium and octreotide which can slow gut down. Duplex mesenteric could not visualize arteries, and portal/hepatic ve in studies neg. Passing gas now. . NG management and decision on imaging per surgery. abd pain--improved heme pos stool-hgb stable. no gross bleeding (stools brown)--no urgent need for endoscopy. elevated LFTS--trend could be med effect, viral process, resolved Subjective cc f/u abd pain, ileus HPI with patient for H and P. Pt states passing gas. Had 212 out of NG day shift today. Some abd pain and got pain meds now denies abd pain. Review of Systems Respiratory: + cough; no dyspnea Cardiovascular: no chest pain Physical Exam Respiratory: normal respiratory effort, lungs clear to auscultation Cardiovascular: RRR, no murmur, no edema Gastrointestinal (Abdomen): pos bs, mildly distended and tympanitic, no guarding nor rebound. Psychiatric: A+Ox3, euthymic affect Results & Data Vital Signs (Past 12 Hours) Vital Signs Temp Pulse Resp BP BP Pulse Ox 09/14/18 11:17 36.9 C 81 18 134/77 96 09/14/18 07:38 36.7 C 68 18 127/71 95 09/14/18 03:20 36.3 C L 71 20 132/66 90
[2018-09-14] MEDS ORDERED: POTASSIUM CHLORIDE / WTR 10 MEQ/100 ML PLCT IV ONE (15:30)
[2018-09-14] MEDS ORDERED: MAGNESIUM SULFATE / D5W 1 GM/100 ML BAG IV ONE (15:30)
[2018-09-14] MEDS ORDERED: FUROSEMIDE 20 MG in SYRINGE 0 ML IV ONE (15:30)
[2018-09-14] MEDS ORDERED: CUSTOM CENTRAL PN IV SCH (16:00)
--- NOTE | 2018-09-14 21:13 | Hospitalist Progress Note ---
Date of Service September 14, 2018 Assessment & Plan (1) Ileus: improving clinically and radiographically -- passing flatus and stools, less distension on x-rays. still with considerable bilious output - we now suspect much of that output is from her ingestion of copious ice chips. Dr Agudelo asked staff to quantify the ice chips amount. surgery and GI to leave NG tube 1 more day -- then hopefully d/c in am on Saturday. appreciate their assistance. clinical course -- copious diarrhea at admission followed by stopping of such then development of ileus. had been on octreotide and immodium -- possible that these agents contributed to motility issues early on. either way these agents were stopped early this week. all GI issues 2nd to 5-FU therapy ?? (had chemo several days prior to GI symptoms starting) low K and low Mag made this issue worse as well (2) Diarrhea: Resolved. See "ileus" above. Never found infections (c diff, giardia, stool cx -- all negative) Likely chemo-related. (3) Hypoalbuminemia: severe. due to lack of nutrition pre-hospitalization and during this stay. s/p IV albumin this week with modest improvement in albumin level. started TPN on Saturday. continue such until she is eating consistently. appreciate pharmacy assistance with TPN. (4) Acute kidney injury: Peak Cr 3, now <1. Resolved. (5) History of DVT (deep vein thrombosis): with known factor 5 Leiden mutation. had been off eliquis for several days earlier this stay. DVT was several years ago. risks of being off anticoagulation are high given Factor 5 Leiden mutation. thus continuing heparin infusion per protocol. resume eliquis once taking PO again. (6) Adenocarcinoma of colon: s/p hemicolectomy [address] Ridley. now on 5-FU and leucovorin. Appreciate Dr Smith's consultation and recommendations. Dr Smith recommended checking DPD gene mutation. If DPD is abnormal she would be vulnerable to ill effects of 5FU treatment. DPD still pending. No evidence of recurrence or progression on recent CT abd/pelvis. (7) HTN (hypertension): Meds on hold due to recent BRITTANY and volume depletion. Cont to hold meds. BPs acceptable. Lasix for volume overload PRN. (8) CKD (chronic kidney disease) stage 3, GFR 30-59 ml/min: baseline CrCl <60 BMPs have been stable (9) UTI (urinary tract infection): received rocephin x 3 days then stopped. no symptoms of UTI at this time. (10) Gout: pt on uloric at home for prophylaxis. use home stock for such when able to take PO. no flares at this time. (11) Hypokalemia: ongoing. due to lasix use and poor oral intake. replace mag. replace K. repeat levels AM. also to receive extra K in TPN. (12) Hypomagnesemia: ongoing. 2nd to lasix use and poor oral intake. replace again today. repeat level AM. (13) Weight gain: marked weight gain this admission due to copious IV fluids early on and 3rd spacing from low albumin no evidence of CHF however. will give lasix 20mg IV x 1 again today. will give a K-rider and Mag-rider with it. good diuresis last few days. (14) DVT prophylaxis: heparin infusion updated at bedside today. I expressed my concerns of her going home rather than rehab at discharge. she has been moving very little - only spent 30 min out of bed today. she has had a 10+ day hospitalization and probably has several more days ahead. encouraged her to walk in hallway once/shift. encouraged to watch a PT session tomorrow to see if indeed he can care for her with how weak she is. ultimately the rehab decision is hers however. Subjective patient feeling good today. I did not know this but she has been taking copious ice chips which might account for NG tube output that has been high. passing plenty of flatus. abd distention/bloating improved. had stools yesterday. pt and her "want to go home" [rather than rehab] when she is ready for discharge. despite that goal she has only spent about 30 min out of bed today per staff. no new complaints. Review of Systems Constitutional: no fever, no chills and no fatigue Respiratory: no cough and no dyspnea Cardiovascular: + edema; no chest pain, no orthopnea and no paroxysmal noctur nal dyspnea Gastrointestinal: + bloating; no abdominal pain, no nausea and no vomiting Physical Exam Constitutional: + obese; no acute distress and not ill appearing ENMT: external ear and nose normal, oropharynx normal NG tube in place draining mildly bilious material Respiratory: normal respiratory effort, lungs clear to auscultation Auscultation: no crackles and no wheezes Cardiovascular: Rate/Rhythm: regular rate and regular rhythm Heart Sounds: normal S1 and normal S2; no murmur Vessels: posterior tibial pulses present and dorsalis pedis pulses present; no JVD Extremities: + edema (1+ on right; 1-2+ on left -- overall improved. ) Gastrointestinal (Abdomen): Inspection/Auscultation: + abdomen distended (again improved today) and normal bowel sounds Percussion/Palpation: abdomen soft; abdomen nontender, no guarding and no hepatosplenomegaly Psychiatric: A+Ox3, euthymic affect Results & Data Vital Signs (Past 12 Hours) Vital Signs Temp Pulse Resp BP Pulse Ox 09/14/18 19:27 36.6 C 81 18 139/73 100 09/14/18 16:18 36.8 C 68 18 132/73 97 09/14/18 11:17 36.9 C 81 18 134/77 96 Laboratory Results Laboratory Results - last 24 hr 09/13/18 09/14/18 09/14/18 23:32 05:27 05:27 WBC RBC Hgb Hct MCV MCH MCHC RDW Std Deviation RDW Coeff of Zee Plt Count MPV Immature Gran % (Auto) Neut % (Auto) Lymph % (Auto) [place] % (Auto) Eos % (Auto) Baso % (Auto) Immature Gran # (Auto) Neut # (Auto) Lymph # (Auto) [place] # (Auto) Eos # (Auto) Baso # (Auto) PT 11.4 INR 1.1 APTT 50.4 H* 53.0 H* PTT Ratio 1.9 2.0 Sodium 137 Potassium 3.3 L D Chloride 94 L Carbon Dioxide 38 H Anion Gap 5.0 BUN 19 H Creatinine 0.81 Est Cr Clr Drug Dosing 60.9 Est GFR ( Amer) 83.5 Est GFR (Non-Af Amer) 72.1 BUN/Creatinine Ratio 23.3 H Glucose 115 H Calcium 7.4 L Phosphorus 2.9 Magnesium 2.0 Total Bilirubin 0.4 AST 18 ALT 24 Alkaline Phosphatase 46 Total Protein 4.2 L Albumin 1.8 L Globulin 2.4 L Albumin/Globulin Ratio 0.7 L Triglycerides 101 09/14/18 05:27 WBC 6.39 RBC 2.45 L Hgb 8.2 L Hct 24.1 L MCV 98.4 MCH 33.5 MCHC 34.0 RDW Std Deviation 61.8 H RDW Coeff of Zee 17.8 H Plt Count 224 MPV 8.9 Immature Gran % (Auto) 0.9 Neut % (Auto) 61.3 Lymph % (Auto) 28.3 [place] % (Auto) 8.5 Eos % (Auto) 0.8 Baso % (Auto) 0.2 Immature Gran # (Auto) 0.06 H Neut # (Auto) 3.92 Lymph # (Auto) 1.81 [place] # (Auto) 0.54 Eos # (Auto) 0.05 Baso # (Auto) 0.01 PT INR APTT PTT Ratio Sodium Potassium Chloride Carbon Dioxide Anion Gap BUN Creatinine Est Cr Clr Drug Dosing Est GFR ( Amer) Est GFR (Non-Af Amer) BUN/Creatinine Ratio Glucose Calcium Phosphorus Magnesium Total Bilirubin AST ALT Alkaline Phosphatase Total Protein Albumin Globulin Albumin/Globulin Ratio Triglycerides Diagnostic Findings KUB x-rays with improved ileus and less distension PG Care Time/CCT Total # of Minutes Spent Total Time Spent with Patient: Total time spent is greater than 50% in coor dination of care (as documented) at patient's floor/unit and/or counseling patient: (1) UTI (urinary tract infection) Hematuria presence: without hematuria Urinary tract infection type: site unspecified Qualified Code(s): N39.0 - Urinary tract infection, site not specified (2) Gout Chronicity: unspecified Gout etiology: unspecified cause Gout site: unspecified site Qualified Code(s): M10.9 - Gout, unspecified (3) Diarrhea Diarrhea type: unspecified type Qualified Code(s): R19.7 - Diarrhea, unspecified (4) HTN (hypertension) Hypertension type: essential hypertension Qualified Code(s): I10 - Essential (primary) hypertension
[2018-09-15 06:35] LABS: Basophils # (auto) 0.02 K/uL (0-0.2); Basophils % (auto) 0.3 %; Eosinophils # (auto) 0.06 K/uL (0-0.5); Eosinophils % (auto) 0.8 %; Hematocrit (blood only) 26.7 % (37-47); Hemoglobin 8.8 g/dL (12.0-16.0); Immature Granulocytes # (auto) 0.09 K/uL (0.00-0.02); Immature Granulocytes % (auto) 1.3 %; Lymphocytes # (auto) 1.71 K/uL (1.2-3.4); Lymphocytes % (auto) 23.8 %; Mean Corpuscular Volume 97.8 fL (80-100); Mean Platelet Volume 9.2 fL (7.4-10.4); Monocytes # (auto) 0.63 K/uL (0.11-0.59); Monocytes % (auto) 8.8 %; Neutrophils # (auto) 4.68 K/uL (1.4-6.5); Platelet Count 234 K/uL (130-400); RDW Coefficient of Variation 18.3 % (11.5-14.5); RDW Standard Deviation 63.9 fL (36.4-46.3); Red Blood Count 2.73 M/uL (4.2-5.4); White Blood Count 7.19 K/uL (4.8-10.8)
--- NOTE | 2018-09-15 06:50 | Surgery Progress Note ---
Date of Service September 15, 2018 Assessment & Plan (1) Ileus: 09/15/18 will check kub yesterday improved will check venous doppler lower ext leave ng tube in for now hopefully will be able to remove later today but if Kub still shows significant SB distention will get Gi series Appears to have resolving ileus. NG tube output may be artificially elevated due to intake of ice chips and liquids. KUB improving, having bm's and flatus. cont ng tube strict I/O's record input consider clamping ng tomorrow vs. contrasted study surgery will follow Subjective wants to go home tired being here Review of Systems Review of Systems: passing flatus and loose bm multiple(not all recorded on I and O) no belly pain occ twinge soreness left leg calf area Physical Exam Physical Exam: alert coherent sitting up in chair Ng drainage dec since midnight per nurse and contents appear distal small bowel abd soft edema lower ext significantly dec no difference caliber of calf Leslie's neg paco Results & Data Vital Signs (Past 12 Hours) Vital Signs Temp Pulse Resp BP BP Pulse Ox 09/15/18 04:45 36.6 C 73 18 136/70 96 09/14/18 22:39 36.6 C 80 20 147/85 H 92 09/14/18 19:27 36.6 C 81 18 139/73 100 PG Care Time/CCT Total # of Minutes Spent Total Time Spent with Patient: Total time spent is greater than 50% in coordination of care (as documented) at patient's floor/unit and/or counseling patient:
[2018-09-15 06:59] LABS: INR 1.1 (0.9-1.1); Partial Thromboplastin Ratio 1.7; Prothrombin Time 10.8 Seconds (9.0-12.0)
[2018-09-15 07:00] LABS: Partial Thromboplastin Time 47.3 Seconds (21.0-31.0)
[2018-09-15 07:07] LABS: BUN Creatinine Ratio 28.7 (10-20); Calcium 7.8 mg/dl (8.5-10.1); Creatinine Clr Calc Pharmacy 57.8 ml/min; Est GFR (African American) 77.7; Magnesium 2.3 mg/dl (1.8-2.4)
[2018-09-15 07:08] LABS: Albumin Globulin Ratio 0.7 (0.9-2); Bilirubin,Total 0.4 mg/dl (0.2-1); Globulin 2.7 gm/dl (2.5-4.0); Phosphorus 3.4 mg/dl (2.5-4.9); Total Protein 4.7 gm/dl (6.4-8.2)
--- NOTE | 2018-09-15 08:38 | Progress Note ---
DATE: 09/15/2018 MEDICAL ONCOLOGY PROGRESS NOTE DIAGNOSES: 1. Intractable abdominal pain/ileus. 2. Acute renal injury. 3. Colorectal cancer. 4. Status post high-dose 5-FU and leucovorin. 4. History of deep vein thrombosis, currently on anticoagulation. SUBJECTIVE: Angela was seen and examined at bedside. Reviewed the clinical notes drafted over the weekend. It would appear Angela is finally turning the corner. Enteral feeding was started. She reports passing flatus and has had a couple of small bowel movements in the last 24 hours. Oral intake remains marginal. She is pleading to go home and I advised her that she really needs to be optimally well as her risk of re-admission is significant. She has now had no chemotherapy in several weeks. I still doubt high-dose 5-FU and leucovorin as the underlying cause of her ileus; however, there is no other available explanation. Nursing reports no overnight difficulties and Angela has no complaints at present. OBJECTIVE: GENERAL: Very pleasant 72-year-old female sitting in chair in no acute distress. VITAL SIGNS: Temperature 36.2, pulse 76, respiratory rate 18, blood pressure 117/70. SKIN: Without rash or lesion. HEENT: NG tube in place. Oral mucosa is clear. HEART: Regular rate and rhythm. LUNGS: Clear to auscultation bilaterally. ABDOMEN: Soft. Bowel sounds hypoactive. EXTREMITIES: No clubbing, cyanosis or edema. NEUROLOGIC: Grossly intact. LABORATORY DATA: WBC count 7190, hemoglobin 8.8, platelet count 234,000. Sodium 135, potassium 4.0, chloride 94, carbon dioxide 37, BUN 25, creatinine 0.86. Her albumin is a little better at 2.0. IMPRESSION: 1. Adynamic ileus. 2. Diarrhea. 3. Hypoalbuminemia. 4. Acute renal injury. 5. Colorectal cancer. PLAN: I visited Angela again at bedside, had a nice discussion with her regarding plans moving forward. Again, I remain unconvinced her ileus was directly caused from chemotherapeutic effect, but no other explanation is available at present. Generally, this regimen is for the most part only mild to moderately toxic in most patients. Nonetheless, I plan to reconvene with Angela once she is discharged and I am leaning towards aborting adjuvant therapy altogether in her case. As of right now, I believe Angela is of the same mindset. Nonetheless, we will formally reconvene once she is discharged to engage in general discussion regarding therapeutics moving forward. I am very pleased, she is making some progress. She is begging to go home and again I told her that she really needs to be optimally well as to avoid re-admission. We will continue to follow her periodically during her stay. Thank you very much for allowing me to participate in Angela's care.
--- NOTE | 2018-09-15 09:16 | Ultrasound Report ---
US venous doppler LE CLINICAL HISTORY: 72 years-old Female presenting with history of left lower extremity DVT, r/o DVT. TECHNIQUE: Real-time grayscale and color and spectral Doppler ultrasound imaging of the veins of the bilateral lower extremities was performed. Compression and augmentation were also utilized. COMPARISON: 09/07/2014.. FINDINGS: RIGHT: Common femoral vein: Patent. Greater saphenous vein (superficial): Patent. Deep femoral vein: Patent. Femoral vein: Patent. Popliteal vein: Patent. Calf veins: Patent. LEFT: Common femoral vein: Patent. Greater saphenous vein (superficial): Patent. Deep femoral vein: Patent. Femoral vein: Patent. Popliteal vein: Patent. Calf veins: Patent. Other: Mild subcutaneous edema in the left lower extremity. IMPRESSION: 1. No evidence of deep venous thrombosis. 2. Mild subcutaneous edema in the left lower extremity. Electronically signed by: Amrit Ritter M.D. 09/15/2018 9:15 AM
[2018-09-15] MEDS: MULTIVITAMIN TAB PO SCH (09:19)
[2018-09-15] MEDS: GABAPENTIN 300 MG CAP PO SCH ×3 (09:19→20:47)
[2018-09-15] MEDS: CHOLECALCIFEROL 1,000 UNITS TAB PO SCH (09:20)
--- NOTE | 2018-09-15 09:39 | XRay Report ---
PA CHEST RADIOGRAPH AND UPRIGHT AND SUPINE AP RADIOGRAPHS OF THE ABDOMEN CLINICAL HISTORY: Follow up bowel obstruction. COMPARISON STUDY: KUB September 14, 2018. CT of the abdomen and pelvis September 04, 2018. FINDINGS: Left subclavian [id number] is in place. Tip of nasogastric tube is within the gastric f undus. Old right rib fractures are noted. There is no evidence for pulmonary edema or pneumonia. Ther e is no pneumothorax or pleural effusion. Cardiomediastinal silhouette is unremarkable. There is no f ree air. Cholecystectomy clips are noted. Small bowel distention is slightly improved. A few loops of gas-filled colon are again noted. IMPRESSION: 1. Persistent but improved small bowel dilatation. 2. No free air. Electronically signed by: Trey Perry M.D. 09/15/2018 9:38 AM
[2018-09-15] MEDS: HEPARIN SODIUM/DEXTROSE 25,000 UNITS/500 ML BAG IV SCH (14:53)
--- NOTE | 2018-09-15 15:59 | Hospitalist Progress Note ---
Date of Service September 15, 2018 Assessment & Plan (1) Ileus: Improving clinically and radiographically -- passing flatus and stools, less distension on x-rays. - NT tube pulled on 09/15. - Advanced to clear liquid diet. (2) Diarrhea: Still having intermittent diarrhea episodes. Never found infections (c diff, giardia, stool cx -- all negative). - Possibly chemo-related. - Will trial Imodium PRN, though this is likely what caused ileus. (3) Hypoalbuminemia: Severe. Due to lack of nutrition pre-hospitalization and during this stay. - Started TPN on 09/11 - Continue such until she is eating consistently. - Appreciate pharmacy assistance with TPN. (4) Acute kidney injury: Peak Cr 3, now <1. Resolved. (5) History of DVT (deep vein thrombosis): With known factor 5 Leiden mutation. Had been off eliquis for several days earlier this stay. Risks of being off anticoagulation are high given Factor 5 Leiden mutation. - Continue heparin infusion per protocol. - Resume eliquis once taking PO again. (6) Adenocarcinoma of colon: S/p hemicolectomy [address] Ridley. - Now on 5-FU and leucovorin. - Appreciate Dr Smith's consultation and recommendations. (7) HTN (hypertension): Meds on hold due to recent BRITTANY and volume depletion. - Cont to hold meds. - Lasix for volume overload PRN (8) CKD (chronic kidney disease) stage 3, GFR 30-59 ml/min: Baseline CrCl <60. - BMPs have been stable (9) Gout: Pt on uloric at home for prophylaxis. - Use home stock for such when able to take PO. - No flares at this time. (10) DVT prophylaxis: Heparin infusion Subjective Dispirited today as she wants to go home. Otherwise, no abdominal pain. Passing some flatus. Review of Systems Review of Systems: All systems reviewed & are unremarkable except as noted in HPI & below Physical Exam Constitutional: WD/WN, vitals as above Eyes: EOM intact bilaterally; no conjunctival abnormality ENMT: external ear and nose normal, oropharynx normal NT tube in place Neck: trachea midline, no thyromegaly normal visual inspection Respiratory: normal respiratory effort, lungs clear to auscultation no respiratory distress Cardiovascular: RRR, no murmur, no edema Gastrointestinal (Abdomen): Inspection/Auscultation: abdomen normal to inspection; abdomen not distended Musculoskeletal: no cyanosis or clubbing, extremities motor strength 5/5 Skin: no rashes, warm and dry Neurologic: moves all extremities and awake Psychiatric: Orientation: alert, oriented to person and cooperative Results & Data Vital Signs (Past 12 Hours) Vital Signs Temp Pulse Resp BP BP Pulse Ox 09/15/18 15:25 97 09/15/18 15:10 36.6 C 76 16 135/78 93 09/15/18 06:56 36.2 C L 76 18 117/70 97 09/15/18 04:45 36.6 C 73 18 136/70 96 PG Care Time/CCT Total # of Minutes Spent Total Time Spent with Patient: Total time spent is greater than 50% in coordination of care (as documented) at patient's floor/unit and/or counseling patient: (1) Diarrhea Diarrhea type: unspecified type Qualified Code(s): R19.7 - Diarrhea, unspecified (2) HTN (hypertension) Hypertension type: essential hypertension Qualified Code(s): I10 - Essential (primary) hypertension (3) Gout Gout site: unspecified site Gout etiology: unspecified cause Chronicity: unspecified Qualified Code(s): M10.9 - Gout, unspecified
[2018-09-15] MEDS ORDERED: CUSTOM CENTRAL PN IV SCH (16:00)
[2018-09-15] MEDS: TRAMADOL HCL 50 MG TABLET PO PRN (19:23)
--- NOTE | 2018-09-15 20:39 | Progress Note ---
DATE: 09/15/2018 The patient is passing gas and liquid stools today. She had a nasogastric tube removed and is tolerating clear liquids. She reports no abdominal pain or distention. PHYSICAL EXAMINATION: VITAL SIGNS: Normal. ABDOMEN: Shows some postsurgical scars which are healing well. IMPRESSION: The patient's ileus appears to be improving. She had her nasogastric tube out today and hopefully will be able to advance her diet tomorrow.
[2018-09-15] MEDS: HYDROmorphone INJ 0.5 MG/0.5 ML SYR IV PRN (20:51)
[2018-09-16] MEDS: HYDROmorphone INJ 0.5 MG/0.5 ML SYR IV PRN (00:55)
[2018-09-16 06:22] LABS: Hematocrit (blood only) 25.9 % (37-47); Hemoglobin 8.6 g/dL (12.0-16.0); Mean Corpuscular Hgb Conc 33.2 g/dL (32-36); Mean Corpuscular Volume 98.1 fL (80-100); Mean Platelet Volume 8.9 fL (7.4-10.4); Platelet Count 214 K/uL (130-400); RDW Coefficient of Variation 18.5 % (11.5-14.5); RDW Standard Deviation 64.2 fL (36.4-46.3); Red Blood Count 2.64 M/uL (4.2-5.4); White Blood Count 7.06 K/uL (4.8-10.8)
[2018-09-16 06:49] LABS: INR 1.1 (0.9-1.1); Partial Thromboplastin Ratio 1.8; Prothrombin Time 10.9 Seconds (9.0-12.0)
--- NOTE | 2018-09-16 06:49 | Surgery Progress Note ---
Date of Service September 16, 2018 Assessment & Plan (1) Ileus: 09/16/18 results of xray and neg ext doppler for dvt discussed with pt will advance diet 09/15/18 will check kub yesterday improved will check venous doppler lower ext leave ng tube in for now hopefully will be able to remove later today but if Kub still shows significant SB distention will get Gi series Appears to have resolving ileus. NG tube output may be artificially elevated due to intake of ice chips and liquids. KUB improving, having bm's and flatus. cont ng tube strict I/O's record input consider clamping ng tomorrow vs. contrasted study surgery will follow Subjective feels great tolerated liquids bowels moved with gas and some solids Physical Exam Physical Exam: alert abd completely benign incision intact and expected healing ridge Results & Data Vital Signs (Past 12 Hours) Vital Signs Temp Pulse Resp BP BP Pulse Ox 09/16/18 03:17 36.4 C L 76 20 160/77 H 95 09/15/18 23:55 36.5 C 71 20 133/70 97 09/15/18 18:55 36.6 C 76 20 150/72 H 98 PG Care Time/CCT Total # of Minutes Spent Total Time Spent with Patient: Total time spent is greater than 50% in coordination of care (as documented) at patient's floor/unit and/or counseling patient:
[2018-09-16 06:51] LABS: Partial Thromboplastin Time 49.6 Seconds (21.0-31.0)
[2018-09-16 06:57] LABS: Basophils # (auto) 0.01 K/uL (0-0.2); Basophils % (auto) 0.1 %; Eosinophils # (auto) 0.06 K/uL (0-0.5); Eosinophils % (auto) 0.8 %; Immature Granulocytes # (auto) 0.09 K/uL (0.00-0.02); Immature Granulocytes % (auto) 1.3 %; Lymphocytes # (auto) 2.01 K/uL (1.2-3.4); Lymphocytes % (auto) 28.5 %; Monocytes # (auto) 0.54 K/uL (0.11-0.59); Monocytes % (auto) 7.6 %; Neutrophils # (auto) 4.35 K/uL (1.4-6.5); Neutrophils % (auto) 61.7 %; RBC Morphology Unremarkable
[2018-09-16 06:58] LABS: Albumin Level 1.9 gm/dl (3.4-5.0); BUN Creatinine Ratio 30.7 (10-20); Creatinine Clr Calc Pharmacy 56.5 ml/min; Est GFR (African American) 76.6; Est GFR (Non-African American) 66.1; Magnesium 2.3 mg/dl (1.8-2.4); Potassium 4.1 mmol/L (3.5-5.1)
[2018-09-16 07:09] LABS: Albumin Globulin Ratio 0.7 (0.9-2); Bilirubin,Total 0.2 mg/dl (0.2-1); Globulin 2.7 gm/dl (2.5-4.0); Phosphorus 4.3 mg/dl (2.5-4.9); Total Protein 4.6 gm/dl (6.4-8.2)
[2018-09-16] MEDS: MULTIVITAMIN TAB PO SCH (08:12)
[2018-09-16] MEDS: GABAPENTIN 300 MG CAP PO SCH (08:12)
[2018-09-16] MEDS: CHOLECALCIFEROL 1,000 UNITS TAB PO SCH (08:12)
[2018-09-16] MEDS: HEPARIN 100 UNIT/ML 5ML FLUSH FLUSH PRN (11:56)
--- NOTE | 2018-09-16 14:12 | Discharge Summary ---
Date of Service September 16, 2018 Admission HPI Per Admitting Provider 72-year-old female undergoing chemotherapy for stage III colon cancer. For the past week she has had nausea vomiting and diarrhea which has resulted in volume depletion and generalized weakness. She is now in acute renal failure with creatinine 3.1. A recent creatinine was 1.0. Potassium was slightly low. She is receiving 5-FU and leucovorin treatment. Hydrochlorothiazide and lisinopril will be placed on hold. Uloric will also be placed on hold due to frequent side effects from that particular medication on the GI tract. She is admitted for further evaluation and treatment. She denies hematemesis, melena, hematochezia. He was reported to me that a C. difficile toxin assay was drawn at the cancer center. Stool culture will be requested. Maya catheter has been placed to monitor urine output and serial lab studies are ordered. Principal Diagnosis Diarrhea, then ileus Discharge Exam Constitutional WD/WN, vitals as above Eyes EOM intact bilaterally; no conjunctival abnormality ENMT external ear and nose normal, oropharynx normal Neck trachea midline, no thyromegaly normal visual inspection Respiratory normal respiratory effort, lungs clear to auscultation no respiratory distress Cardiovascular RRR, no murmur, no edema Gastrointestinal (Abdomen) Inspection/Auscultation: abdomen normal to inspection; abdomen not distended Musculoskeletal no cyanosis or clubbing, extremities motor strength 5/5 Skin no rashes, warm and dry Neurologic moves all extremities and awake Psychiatric Orientation: alert, oriented to person and cooperative Discharge Data Allergies Allergy/AdvReac Type Severity Reaction Status Date / Time celecoxib Allergy Severe FACIAL Verified 09/04/18 16:49 SWELLING, SOB, HIVES Consultations 09/04/18 17:14 ED Decision to Admit Stat 09/04/18 19:27 ED Decision to Admit Stat 09/05/18 10:36 Consult Patient Rep / Service Excellence [Consult Patient Services] Routine 09/05/18 21:52 Consult Gastroenterology Routine 09/06/18 16:21 Consult Oncology Routine 09/11/18 09:18 Consult General Surgery Routine Ordered Studies 09/04/18 16:05 CT abd pelvis wo con Stat 09/11/18 14:42 US duplex mesenteric Routine US duplex portal hepatic veins Routine 09/15/18 06:51 US venous doppler LE SOPHIA Routine Hospital Course (1) Ileus: Resolved by 09/16 -- passing flatus and stools, less distension on x-rays. Patient ate normal breakfast without nausea or emesis. - Follow up with oncology - It felt a bit early to discharge the patient, but Ms. Melo begged me to discharge her. Given she is capable of making her own decisions, I agreed to discharge. I discussed her discharge with her daughter, also discussing the mild risk posed with discharging so soon after advancing diet, but all parties agreed she would be much happier at home. She will follow up with oncology for possible palliative care referral as she seems to be leaning away from further treatment and wants to stay home as much as able. (2) Diarrhea: Still having intermittent diarrhea episodes. Never found infections (c diff, giardia, stool cx -- all negative). - Possibly chemo-related. - Told to trial Imodium gently. (3) Hypoalbuminemia: Severe. Due to lack of nutrition pre-hospitalization and during this stay. - Started TPN on 09/11 -> Finished her course on 09/16. No further need now that she's doing better. (4) Acute kidney injury: Peak Cr 3, now <1. Resolved. (5) History of DVT (deep vein thrombosis): With known factor 5 Leiden mutation. Had been off Eliquis for several days earlier this stay. Risks of being off anticoagulation are high given Factor 5 Leiden mutation. - Resumed Eliquis on discharge. (6) Adenocarcinoma of colon: S/p hemicolectomy [address] Ridley. - Now on 5-FU and leucovorin. - Appreciate Dr Smith's consultation and recommendations -> Possibly stopping treatment at this point. (7) HTN (hypertension): Meds on hold due to recent BRITTANY and volume depletion. - Held HCTZ on discharge. - Restart lisinopril on discharge. (8) CKD (chronic kidney disease) stage 3, GFR 30-59 ml/min: Baseline CrCl <60. - BMPs have been stable (9) Gout: Pt on uloric at home for prophylaxis. - Use home stock for such when able to take PO. - No flares at this time. (10) DVT prophylaxis: Eliquis Total Time Total Time Spent Total Time Spent (In Minutes): 35 Total Time Includes: Examination of the Patient and Communication With Other Providers Discharge Plan Discharge Items Patient Disposition: Home - Home Health Services Reason For Visit: GASTROENTERITIS,VOLUME DEPLETION,ACUTE KIDNEY FAIL Discharge Diagnosis: Acute kidney failure, diarrhea, then ileus Discharge Goals: Decrease discomfort, Improve disease control and Improve function Activity: Resume your previous activity Non-emergency contact: Primary Care Provider and Oncologist Call non-emergency contact if: your symptoms worsen and your pain is not controlled Follow-up/Referrals: Eliel Sykes III, MD [Primary Care Provider] - 09/23/18 3:00 pm (Please, follow up at Dr. Sykes's office with Rosa Medina PA-C on SaturdaySeptember 23 at 3:00 pm. *If you need to change this appointment, call the office at [phone].) John Smith DO [Physician] - 09/19/18 3:30 pm (Please, follow up at [facility] with Dr. Smith on SaturdaySeptember 19 at 3:30 pm. *If you need to change this appointment, call the office at [phone].) Diet: Regular Addtl Provider Instructions: Ms. Melo, Jon were admitted to the hospital with diarrhea that then turned into a bowel obstruction. This resolved over several weeks. You are eating and drinking well at this point. Your diarrhea is improving, though seems to not be entirely gone. Please follow bland, soft diet for the next few days, and gradually increase what you are eating. Please see Dr. Smith this week to follow up on any further treatment. Please try the Creon (pancreatic enzyme) pills to help prevent the diarrhea from returning. If they do not help, you do not have to take them. You can gradually try to take less (for instance, take only 3 tablets with each meal instead of 4) if you do not see any side effects of lowering the dosage. Prescriptions: New Creon 36,000-114,000- 180,000 unit Capsule,Delayed Release(Dr/Ec) 4 cap PO AC Qty: 120 RF: 0 Continued multivitamin Tablet 1 tab PO QAM RF: 0 lisinopril 10 mg Tablet 10 mg PO QAM RF: 0 cholecalciferol (vitamin D3) [Vitamin D3] 1,000 unit Tablet 1,000 unit PO QAM RF: 0 apixaban 2.5 mg tablet 2.5 mg PO BID Qty: 180 RF: 0 tramadol 50 mg tablet 100 mg PO QID PRN (Reason: pain) Qty: 720 RF: 1 febuxostat 80 mg tablet 80 mg PO QAM Qty: 90 RF: 3 diphenhydramine HCl [Benadryl] 25 mg Capsule 25 mg PO HS PRN (Reason: Sleep) RF: 0 ranitidine HCl [Zantac] 150 mg Tablet 150 mg PO HS PRN (Reason: Acid Reflux) RF: 0 diphenoxylate-atropine 2.5-0.025 mg tablet 1 tab PO QID PRN (Reason: Diarrhea) RF: 0 gabapentin 300 mg capsule 300 mg PO TID RF: 0 Discontinued hydrochlorothiazide 25 mg Tablet 25 mg PO QAM RF: 0 ondansetron in 0.9 % sod chlor 8 mg/50 mL Piggyback 8 mg IV UD RF: 0 Stand-Alone Forms: [facility]charge Orders: Discharge Order (Routine); Ordered 09/16/18 Ordered By: Chandler Melo Admission Data Admit Date/Time: 09/04/18 18:34 Attending Provider: Chandler Melo Admit Provider: Edgardo Shah Primary Care Provider: Eliel Sykes III Other Providers: Edgardo Shah ; Baldev Kim ; Stewart De La Cruz ; Eren Wayne ; Kirill Ridley Service: Medical Other Interventions: Discharge Summary Assessment (RN) Last Done: 09/16/18 12:03 DC Date/Time DO NOT enter until pt leaves facility: 09/16/18 13:04
== END 2018-09-16 13:04 | disposition home health service (06) | DRG 394 ==
LOC: ED 15:43 → 4W 18:34 → SUATTDRO 18:34 → 4W 19:18

== ENCOUNTER 2021-09-07 07:34 | Observation (INO) ==
--- NOTE | 2021-08-31 12:26 | Anesthesiology Consultation ---
Date of Service August 31, 2021 Assessment & Plan (1) Encounter for pre-operative examination: Chart Review Chart Review: Acceptable Risk for Surgery (pending preop Covid testing results ) and Patient NOT seen in Pre Admission Testing - Per 08/29/21 surgeon note- Eliquis being held 3 days prior to surgery Per nursing assessment 08/31/2021, patient denies any recent travel. No known COVID infection in the past 90 days. Patient is fully vaccinated for COVID. No known Covid positive exposures or Covid related symptoms. Preop Covid testing scheduled 09/05/21= will await results Patient seen by PCP 08/30/2021 = seen for 6-month follow-up. Incisional hernia - patient scheduled for hernia repair. She is medically stable as she can be for upcoming surgery. CKDcontinue to follow labs. Hypertensionstable. Impaired fasting glucosewe will continue to follow labs. On chronic Eliquis for recurrent venous thromboembolism and factor V Leiden mutation. CKDstable. History of adenocarcinoma of the colonMay 2018. Status post colon resection. A port removed May 2021 A port removal 05/18/21= Done under MAC History Surgery Operation Date: 09/07/21 08:20 Proposed Procedures p Open Incisional Hernia with Mesh - Kirill iRdley MD, FACS Height/Weight Height: 5 ft 1 in Weight: 87.997 kg Allergies Allergy/AdvReac Type Severity Reaction Status Date / Time celecoxib Allergy Severe FACIAL Verified 08/31/21 11:19 SWELLING, SOB, HIVES Medications Home Medications Medication Instructions Recorded Confirmed Last Taken cholecalciferol (vitamin D3) 25 1,000 unit PO QAM 09/17/18 08/31/21 05/17/21 07:30 mcg (1,000 unit) tablet (Vitamin D3) diphenhydramine HCl 25 mg capsule 25 mg PO HS PRN Sleep 09/17/18 08/31/21 05/17/21 20:00 (Benadryl) multivitamin 1 tab PO QAM 09/17/18 08/31/21 05/17/21 08:00 allopurinol 300 mg tablet 300 mg PO QAM 05/15/21 08/31/21 05/17/21 07:30 glucosamine-chondroitin 250 mg-200 1 tab PO QAM 05/15/21 08/31/2122 08:00 mg tablet (Osteo Bi-Flex) hydrochlorothiazide 25 mg tablet 25 mg PO QAM 05/15/21 08/31/21 05/17/21 08:00 triamcinolone acetonide 0.1 % 1 applic topical BID PRN Skin 05/15/21 08/31/21 Unknown topical cream Irritation lisinopril 10 mg tablet 10 mg PO QAM #90 tabs 05/25/21 08/31/21 Unknown eflornithine 13.9 % topical cream 1 applic topical BID #135 grams 08/30/21 08/31/21 Unknown (Vaniqa) apixaban 2.5 mg tablet (Eliquis) 2.5 mg PO BID 08/31/21 08/31/21 Unknown gabapentin 300 mg capsule 300 mg PO UD 08/31/21 08/31/21 Unknown metronidazole 500 mg tablet 500 mg PO UD 08/31/21 08/31/21 Unknown neomycin 500 mg tablet 1 g PO UD 08/31/21 08/31/21 Unknown tramadol 50 mg tablet 100 mg PO Q6H 08/31/21 08/31/21 Unknown Past Medical History Medical History (Updated 08/31/21 @ 12:24 by Jaja Ma PA-C) Adenocarcinoma of colon Dx 2019- s/p colon resection and chemo. CKD (chronic kidney disease) stage 3, GFR 30-59 ml/min Colon obstruction At splenic flexure in 2019- felt secondary to colon cancer Factor 5 Leiden mutation, heterozygous On Eliquis GERD (gastroesophageal reflux disease) Occasional, diet controlled Gout History of DVT (deep vein thrombosis) ~2015- on Eliquis; LT. leg x3 History of foot ulcer Rt.; Currently being treated for Pre-ulcerative callus per 05/2021 podiatry note- treated in office- follow up in 65 days Hypertension Impaired fasting glucose PCP monitoring Hgb A1C 5.8 in 10/2020 Neuropathy BILATERAL LEGS Obesity On anticoagulant therapy Past Family History Family History Sister Family history of diabetes mellitus Mother Family history of diabetes mellitus Stroke syndrome Congestive heart failure (CHF) Father Suicide Unknown Arthritis Brother Myocardial infarction Denies family history of Ovarian cancer Prostate cancer Breast cancer Colorectal cancer Past Surgical History Surgical History H/O colonoscopy (~06/26/18) 06/26/18 [facility] H/O umbilical hernia repair History of bilateral tubal ligation History of colon resection 07/01/2018. GETA. MAC 3, grade 1 view. No issues. History of colonoscopy (08/18/19) Dr De La Cruz, sigmoid tics, end to side colo-colonic anastomosis with normal mucosa, recheck in 3 years History of removal of Port-a-Cath (05/18/21) Infusaport Removal Left Subclavian(Left) Dr. Ridley History of tooth extraction S/P cholecystectomy Social History Smoking Status: Never smoker Do You Dip or Chew Tobacco: No Hx Alcohol Use: No Hx Substance Use: No substance use type: does not use Lab Results Anesthesia Preop Results Results Anesthesia Widget: WBC 6.10 K/ul (4.8-10.8) 08/29/21 Hgb 12.1 g/dl (12.0-16.0) 08/29/21 Hct 37.3 % (34.1-44.9) 08/29/21 Plt 218 K/uL (130-400) 08/29/21 Na 136 mmol/L (136-145) 08/29/21 K 4.3 mmol/L (3.5-5.1) 08/29/21 Cl 102 mmol/L (98-107) 08/29/21 CO2 28 mmol/L (21-32) 08/29/21 BUN 37 mg/dl (6-23) H 08/29/21 Creat 1.58 mg/dl (0.6-1.2) H 08/29/21 Glucose Level 117 mg/dl (70-99(Fasting)) H 08/29/21 Testing Laboratory Results Elevated creatinine chronic and stable from previous Electrocardiogram Date: 04/26/21 Findings: + NSR @ (88bpm ) Left axis deviation. When compared to EKG from August 12, 2019- no significant change was found per cardio. Chest X-Ray Date: 08/29/21 Findings: + NAD Stress Test Date: 11/26/17 Type: DSE Normal dobutamine echo without evidence of inducible ischemia. Stage I DD. 90% MPHR. No significant valvular disease. Other Testing Abdomen and Pelvis CT 10/19/20= No significant change compared the prior study. No evidence for metastatic disease within the abdomen or pelvis. No significant change in the fat-containing nodules with minimal surrounding inflammatory change within the omentum and left side of the mesentery. The long-term stability and appearance favors fat necrosis and could be due to old postoperative change rather than peritoneal carcinomatosis. Midline bowel containing ventral hernias, unchanged. No bowel wall thickening or obstruction.
[~2021-09-07 07:34] MED LIST changes: +SUGAMMADEX SODIUM 200 MG/2 ML VIAL IV ONE
[2021-09-07] MEDS ORDERED: ONDANSETRON INJ 2 MG/ML 2 ML VIAL ONE (08:36)
[2021-09-07] MEDS ORDERED: fentaNYL citrate 100 MCG/2 ML VIAL ONE ×2 (08:36→11:19)
[2021-09-07] MEDS ORDERED: ROCURONIUM BROMIDE 10 MG/ML 5 ML VIAL IV ONE ×3 (08:36→11:32)
[2021-09-07] MEDS ORDERED: DEXAMETHASONE SOD INJ 4 MG/ML VIAL ONE (08:36)
[2021-09-07] MEDS ORDERED: PROPOFOL IV EMULSION 10 MG/ML 20 ML VIAL IV ONE (08:36)
[2021-09-07] MEDS ORDERED: ePHEDrine sulfate 50 MG/ML AMP IV PRN (08:42)
[2021-09-07] MEDS ORDERED: ONDANSETRON INJ 2 MG/ML 2 ML VIAL IV PRN ×2 (08:42→17:58)
[2021-09-07] MEDS ORDERED: ATROPINE SULFATE 0.1 MG/ML 10ML SYR IV PRN (08:42)
--- NOTE | 2021-09-07 10:20 | History & Physical Bridge Note ---
Date of Service September 07, 2021 History & Physical Bridge Note I have examined the patient, reviewed the History & Physical and in the interval since the performance of the History & Physical I have noted the following changes of clinical significance: no changes noted SO at bedside pt marked al questions answered
[2021-09-07] MEDS ORDERED: LIDOCAINE 1% LOCAL 20 ML VIAL ONE (10:31)
[2021-09-07] MEDS ORDERED: BUPIVACAINE 0.5 % 5 MG/1 ML MPF 30ML VIAL ONE (10:31)
[2021-09-07] MEDS ORDERED: ceFAZolin 330 MG/ML 1 GM VIAL ONE (11:00)
[2021-09-07] MEDS ORDERED: ceFAZolin 2000MG 2,000 MG/15 ML SYR IV ONE (11:19)
--- NOTE | 2021-09-07 12:35 | Post Operative Brief Note ---
PG Immediate Post Op with CF Date of Surgery September 07, 2021 Pre & Post Diagnosis Operation Date: 09/07/21 10:00 Pre-Op Diagnosis: Incisional hernia. Post-Op Diagnosis: Incisional hernia. I identified the patient and participated in the time-out.: Yes Procedure Operation Date: 09/07/21 10:00 Actual Procedures p Open Incarcerated Incisional Hernia Repair with Compartment Seperation withMarlex Mesh onlay , Lysis of adhesions(Not Applicable) - Kirill Ridley MD, FACS Surgeon Kirill Ridley MD, FACS Ammonium Nitrate Crystallizer marina warren Estimated Blood Loss 50 Findings Consistent with Post-Op Diagnosis Specimens Specimen Description: A. Hernia sac. Drains Robert-Porter Drain
[2021-09-07] MEDS: fentaNYL citrate 100 MCG/2 ML VIAL IV PRN ×4 (12:40→12:55)
[2021-09-07] MEDS ORDERED: HYDROmorphone INJ 1 MG/ML SYRINGE ONE (12:51)
[2021-09-07] MEDS: HYDROmorphone INJ 1 MG/ML SYRINGE IV PRN ×8 (13:00→13:35)
--- NOTE | 2021-09-07 13:54 | Anesthesiology Progress Note ---
Date of Service September 07, 2021 Anesthesia Post Procedure Vital Signs Vital Signs: Temp Pulse Pulse Resp BP Pulse Ox O2 Del Method 09/07/21 13:45 83 17 137/61 96 Nasal Cannula 09/07/21 13:35 82 18 109/60 97 Nasal Cannula 09/07/21 13:25 81 15 121/69 97 Nasal Cannula 09/07/21 13:15 77 19 125/59 L 99 Nasal Cannula 09/07/21 13:05 76 21 99/81 L 96 Nasal Cannula 09/07/21 12:55 76 27 H 121/52 L 94 Oxymask 09/07/21 12:45 75 20 121/52 L 93 Oxymask 09/07/21 12:39 97.0 F L 82 17 113/68 95 Oxymask 09/07/21 08:12 97.7 F 89 20 131/75 98 Room Air O2 Flow Rate 09/07/21 13:45 2 09/07/21 13:35 2 09/07/21 13:25 2 09/07/21 13:15 4 09/07/21 13:05 4 09/07/21 12:55 4 09/07/21 12:45 7 09/07/21 12:39 7 09/07/21 08:12 Pain Intensity Abdomen: Pain Intensity: 8 Transfer of Care Handoff Completed per policy Notes Mental Status: alert / awake / arousable and participated in evaluation Patient Amnestic to Procedure: Yes Nausea / Vomiting: adequately controlled Pain: adequately controlled Airway Patency, RR, SpO2: stable & adequate BP & HR: stable & adequate Hydration State: stable & adequate Anesthetic Complications: no major complications apparent and Pt Satisfied with anesthetic care
[2021-09-07] MEDS ORDERED: oxyCODONE/ACETAMINOPHEN 5mg/325mg TAB PO PRN (14:48)
[2021-09-07] MEDS ORDERED: oxyCODONE/ACETAMINOPHEN 5mg/325mg TAB PO ONE (14:50)
[2021-09-07] MEDS ORDERED: MoRPHine SULFATE 4 MG/ML 1 ML CARP\\VIAL IV PRN (17:58)
[2021-09-07] MEDS ORDERED: TRIAMCINOLONE ACET 0.1% CR 15 GM TUBE TOP PRN (17:58)
[2021-09-07] MEDS ORDERED: MoRPHine SULFATE 2 MG/ML CARP IV PRN (17:58)
[2021-09-07] MEDS ORDERED: oxyCODONE HCL IR 5 MG TAB (IMMEDIATE RELEASE) PO PRN ×2 (17:58)
[2021-09-07] MEDS ORDERED: LACTATED RINGER'S 1,000 ML IV SCH (17:58)
[2021-09-07] MEDS: ACETAMINOPHEN 1000 MG/100 ML IV IV PRN (20:37)
[2021-09-07] MEDS ORDERED: GABAPENTIN 600 MG TAB PO SCH (21:00)
--- NOTE | 2021-09-08 06:23 | Operative Report ---
PG Post Operative Report Pre & Post Diagnosis Operation Date: 09/07/21 10:00 Pre-Op Diagnosis: Incisional hernia. Post-Op Diagnosis: Incisional hernia. I identified the patient and participated in the time-out.: Yes Procedure Operation Date: 09/07/21 10:00 Actual Procedures p Open Incarcerated Incisional Hernia Repair with Compartment Seperation withMarlex Mesh onlay , Lysis of adhesions(Not Applicable) - Kirill Ridley MD, FACS Please take note that this operative note was dictated yesterday not sure if it was dictated to another patient's records Patient was brought into the operating room supine position general endotracheal anesthesia systemic antibiotics on board abdomen is prepped Betadine scrub a solution properly draped a timeout was had patient was identified this point we made an incision through the old scar supraumbilically taken down to the supraumbilical area the patient had very thin layer of skin and subcutaneous tis neno overlying an easily appreciated loop of small bowel we took our dissection cephalad avoiding any injury to the bowel and distally we extended the incision around the umbilical crater since the umbilicus was very thin and I removed it from the anticipation that it left an area with probably necrosis at this point we freed the subcutaneous tissue from the abdominal wall some adhesions of the small bowel that were identified to the hernia were divided we circumferentially the multiple fenestrations of the hernial sac from the subcutaneous tissue down to the abdominal wall and completely excised the hernia sac we scored with Bovie above the umbilical wall circumferentially down to the edge of the lateral rectus muscle bilaterally anticipating to relax the abdominal wall and at this patient to close the hernial defect the hernial defect was approximately 10 cm x 10 cm once we had freed the rectus fascia anteriorly bilaterally relaxed at we closed the hernial defect with a running 1 PDS suture starting 1 cephalad and 1 code this was fairly free without any tension at this point a 6 x 6 inches Marlex mesh was brought onto the field and laid it is onlay suturing with 2-0 Prolene to the lateral edges of the relaxing incision on the compartment sides this was done with four 2-0 Prolene interrupted at 9-12 12 at 3 and 3-6 Once hemostasis was appreciated we brought into David drains through separate stab wounds lateral to the incision placed it on top of the mesh we placed a few sutures attaching the mesh to the previously closed midline on the hernial defect and we used 2-0 Vicryl for this and also used 2-0 Vicryl to attach the subcutaneous tissue onto the laterally to avoid is much retained pockets as possible 2-0 Vicryl was similarly used to close subcutaneously josefina for skin edges dressing was applied procedure was tolerated well by the patient estimate blood loss 35 cc Addendum Mayuri Trivedi physician ict sales assistant was present throughout the procedure exposure and wound closure Surgeon Kirill Ridley MD, FACS Entertainment Usher marina warren Estimated Blood Loss 50 Findings Consistent with Post-Op Diagnosis Multiple fenestration of an incisional hernia Specimens Hernia sac Drains 219 David drains through stab wounds lateral to the incision placed on top of the mesh Indications Enlarging abdominal wall incisional hernia with discomfort occasional nausea Description of Procedure merda I attest to the content of the Intraoperative Record and any orders documented therein. Any exceptions are noted below.
--- NOTE | 2021-09-08 06:29 | Surgery Progress Note ---
Date of Service September 08, 2021 Assessment & Plan (1) Hernia, incisional: Plan: Intraoperative findings discussed with the patient tell her that we needed to remove the reese olmos that was too thin and may actually with our dissection Also told her that I did not see any recurrent cancer in the abdomen and the areas that we were working This point we will take 1 David drains out plan the patient to discharge today return to our office on Saturday to remove the other drain Should not drive until we see her do not lift anything heavier than 10 pounds We will give her a prescription of some p.o. analgesics but Motrin or Advil may just be sufficient for her Admission and Anticipated Discharge Date Admission Date: September 07, 2021 Subjective Patient feels fine and had very little discomfort since surgery took 1 p.o. analgesic denies any nausea Physical Exam Physical Exam: Alert coherent in bed without any discomfort The abdomen is completely benign David drainage minimal serous slightly sanguinous The dressing on the incision was slightly elevated incision appears intact without any drainage or cellulitis Results & Data ([facility]) Vital Signs (Past 12 Hours) Vital Signs Temp Pulse Resp BP BP Pulse Ox O2 Del Method 09/08/21 03:46 37.1 C 82 20 118/63 93 Room Air 09/07/21 22:05 37.1 C 85 16 115/64 93 Room Air 09/07/21 21:02 113/63 09/07/21 19:42 36.8 C 103 H 20 194/94 H 94 Room Air PG Care Time/CCT Total # of Minutes Spent Total Time Spent with Patient: Total time spent is greater than 50% in coordination of care (as documented) at patient's floor/unit and/or counseling patient: Coding Level of Care Code None Diagnoses Hernia, incisional K43.2
[2021-09-08] MEDS: ACETAMINOPHEN 1000 MG/100 ML IV IV PRN (08:20)
[2021-09-08] MEDS ORDERED: GABAPENTIN 300 MG CAP PO SCH (09:00)
[2021-09-08 10:38] LABS: Basophils # (auto) 0.03 K/uL (0-0.2); Basophils % (auto) 0.3 %; Eosinophils # (auto) 0.01 K/uL (0-0.50); Eosinophils % (auto) 0.1 %; Hematocrit (blood only) 37.3 % (34.1-44.9); Hemoglobin 12.4 g/dl (12.0-16.0); Immature Granulocytes # (auto) 0.03 K/uL (0.00-0.02); Immature Granulocytes % (auto) 0.3 %; Lymphocytes # (auto) 1.34 K/uL (1.2-3.4); Mean Corpuscular Hemoglobin 33.2 pg (25.0-34.0); Mean Corpuscular Hgb Conc 33.2 g/dL (32.0-36.0); Mean Corpuscular Volume 99.7 fL (80.0-100.0); Mean Platelet Volume 10.9 fL (9.4-12.3); Monocytes # (auto) 0.64 K/uL (0.24-0.82); Monocytes % (auto) 5.8 %; Neutrophils # (auto) 9.08 K/uL (1.4-6.5); Neutrophils % (auto) 81.5 %; Platelet Count 220 K/uL (130-400); RDW Standard Deviation 50.2 fL (36.4-46.3); Red Blood Count 3.74 M/uL (3.93-5.22); White Blood Count 11.13 K/ul (4.8-10.8)
[2021-09-08 11:03] LABS: BUN Creatinine Ratio 21.4 (10-20); Calcium 9.2 mg/dl (8.5-10.1); Creatinine Clr Calc Pharmacy 26.5 ml/min; Est GFR (African American) 30.7 ml/min; Est GFR (Non-African American) 26.5 ml/min; Potassium 3.6 mmol/L (3.5-5.1)
--- NOTE | 2021-09-08 13:43 | Discharge Summary ---
Date of Service September 08, 2021 Principal Diagnosis Incisional hernia Discharge Exam Constitutional WD/WN, vitals as above Gastrointestinal (Abdomen) Inspection/Auscultation: + abdominal surgical incision (dry) Percussion/Palpation: abdomen soft Discharge Data Allergies Allergy/AdvReac Type Severity Reaction Status Date / Time celecoxib Allergy Severe FACIAL Verified 08/31/21 11:19 SWELLING, SOB, HIVES Procedures Performed Operation Date: 09/07/21 10:00 Actual Procedures p Open Incarcerated Incisional Hernia Repair with Compartment Seperation withMarlex Mesh onlay , Lysis of adhesions(Not Applicable) - Kirill Ridley MD, FACS Hospital Course (1) Hernia, incisional: 75 y/o female with incisional hernia was taken to the operating room for repair with mesh. Given size of the hernia and placement of drains she was transferred to the surgical floor for overnight observation. In the morning he was able to advance diet and tolerate oral analgesics. There was minimal David drainage and both drains were removed to facilitate restarting her Eliquis in a few days. She was stable for discharge home. Total Time Total Time Spent Total Time Spent (In Minutes): 15 Discharge Plan Discharge Items Patient Disposition: Home - Self-Care Reason For Visit: Incisional Hernia Discharge Diagnosis: open incisional hernia Activity: Per Instructions section Lifting: No more than 10 pounds Bathing Comment: may shower starting 09/08/21;no soaking in tubs/pools Exercise/Sports: Wait until after follow-up appointment Driving/Machine Use: wait at least 1 week; no driving while taking narcotics for pain Non-emergency contact: Surgeon Call non-emergency contact if: you have any medication questions, your symptoms worsen, your pain is not controlled, your pain is concerning for you, you have a fever, your temperature is above 101.5, your wound has increased redness, your wound has increased drainage and your wound pain has increased Follow-up/Referrals: Gale Diggs PA-C [Primary Care Provider] - Kirill Ridley MD, FACS [Surgeon] - 09/18/21 1:30 pm () Diet: Regular Addtl Attending Provider Instructions: You may resume your Eliquis on Saturday You may remove bandage tomorrow to shower. Cover small wounds lightly until drainage stops. Pending Studies at Discharge: No Stand-Alone Forms: My [facility] Medications and DC Order Prescriptions: Continued multivitamin tablet 1 tab PO QAM cholecalciferol (vitamin D3) [Vitamin D3] 1,000 unit (25 mcg) tablet 1,000 unit PO QAM lisinopril 10 mg tablet 10 mg PO QAM Qty: 90 3RF Vaniqa 13.9 % cream 1 applic TOP BID Qty: 135 3RF diphenhydramine HCl [Benadryl] 25 mg capsule 25 mg PO HS PRN (Reason: Sleep) allopurinol 300 mg Tablet 300 mg PO QAM triamcinolone acetonide 0.1 % cream 1 applic TOP BID PRN (Reason: Skin Irritation) hydrochlorothiazide 25 mg tablet 25 mg PO QAM glucosamine-chondroitin [Osteo Bi-Flex] 250-200 mg Tablet 1 tab PO QAM metronidazole 500 mg tablet 500 mg PO UD Rx Instructions: 500 mg PO The day before surgery take at 2:00 pm, 4:00 pm, and 10:00 pm.; tramadol 50 mg tablet 100 mg PO Q6H gabapentin 300 mg capsule 300 mg PO UD Rx Instructions: 300 mg PO TAKE 1 CAPSULE IN THE MORNING, 1 CAPSULE IN THE AFTERNOON, AND 2 CAPSULES IN THE EVENING; neomycin 500 mg tablet 1 g PO UD Rx Instructions: 1 g PO The day before surgery. Take at 2:00pm, 4:00pm, and 10:00pm; Discontinued Eliquis 2.5 mg Tablet 2.5 mg PO BID Discharge Orders: Discharge Order (Routine); Ordered 09/08/21 Ordered By: Faraz Graham Admission Data Admit Date/Time: 09/07/21 12:43 Attending Provider: Kirill Ridley Admit Provider: Kirill Ridley Primary Care Provider: Gale Diggs Other Interventions: Discharge Summary Assessment (RN) Last Done: 09/08/21 11:10 Coding Level of Care Code D/C DAY MANAGEMENT <30 MINS Diagnoses Hernia, incisional K43.2
== END 2021-09-08 12:08 | disposition home or self-care (01) ==
LOC: ASU 07:34 → PACUINP 07:34 → 3N 17:56
DX: Z88.1 Allergy status to other antibiotic agents; Z79.01 Long term (current) use of anticoagulants; Z79.899 Other long term (current) drug therapy; K43.2 Incisional hernia without obstruction or gangrene